=== PATIENT | male | born 1955 | race Caucasian/White ===

== ENCOUNTER 2020-08-20 16:23 | Inpatient (IN) | payer MEDICARE, BC, SELFPAY ==
[2020-08-20] VITALS (7 sets, daily range): BP systolic 118–150; BP diastolic 68–89; PULSE 89–102; RESP 14–22; TEMP 36.3–36.8; O2SAT 92–99; BMI 24.5
--- NOTE | ~2020-08-20 | XR_ITS ---
EXAMINATION: XR foot LT min 3V DATE: 08/20/2020 18:08 INDICATION: Left foot pain TECHNIQUE: Four views of the left foot were obtained. COMPARISON: None. FINDINGS: There are changes of left foot amputation beyond the tarsals. There is deformity of the cun eiforms and navicular, consistent with chronic diabetic foot change. There is a soft tissue ulceratio n at the plantar aspect of the lateral foot which appears to penetrate to the cuboid. There are is os teopenia and soft tissue gas involving the lateral aspect of the cuboid. Diffuse soft tissue swelling is seen in the foot and distal lower extremity. There is gas in the plantar aspect of the foot adjac ent to the calcaneus. A cleft is seen in the soft tissues of the distal foot near the medial and midd le cuneiform bones without definite associated osteomyelitis. IMPRESSION: 1. Plantar ulceration of the foot penetrating to the cuboid with osteomyelitis of the cuboid. 2. Soft tissue gas in the plantar aspect of the foot. 3. Surgical changes of prior distal foot amputation. Reviewed, dictated and finalized at location A.
--- NOTE | ~2020-08-20 | US_ITS ---
EXAMINATION: US venous doppler [facility] EXAM DATE: 08/21/2020 09:41 INDICATION: Edema, history of DVT. TECHNIQUE: Multiple grayscale, color flow and Doppler images of the left lower extremity deep venous system obtained and reviewed. There is no prior study for comparison. FINDINGS: LEFT SIDE Common femoral: -------- Normal. Profunda femoral: ------- Normal. Femoral: Normal. Popliteal: Some linear echogenic thrombus or scarring. Posterior tibial: --------- Normal. Peroneal: Normal. Gastrocnemius: Occluded, age indeterminate. Soleus: Not visualized. Greater saphenous: ----- Normal. Lesser saphenous: ------ Not visualized. IMPRESSION: Nonocclusive popliteal, occlusive gastrocnemius thrombus or scarring. Popliteal vein mor e consistent with subacute or chronic finding, gastrocnemius is age indeterminate. I discussed positive results with 3rd medical floor nurse caring for patient at 08/21/2020 09:58 CDT. Reviewed, dictated and finalized at location A. IMPRESSION: Nonocclusive popliteal, occlusive gastrocnemius thrombus or scarrin g. Popliteal vein more consistent with subacute or chronic finding, gastrocnem ius is age indeterminate. I discussed positive results with [facility] medical floor nurse caring for patient at 08/21/2020 09:58 CDT.
--- NOTE | ~2020-08-20 | XR_ITS ---
EXAMINATION: XR chest 1V portable EXAM DATE: 08/25/2020 12:30 INDICATION: Shortness of breath. TECHNIQUE: Portable AP frontal chest x-ray was obtained. There is no prior study for comparison. FINDINGS: There is mild cardiomegaly. There is small left pleural effusion. No focal airspace disease or pneumothorax. There are no osseous abnormalities identified. IMPRESSION: Mild cardiomegaly. Small left pleural effusion. Reviewed, dictated and finalized at location A.
[2020-08-20 17:42] LABS: Glucose Point of Care > 500 (65-105)
[2020-08-20] MEDS: LACTATED RINGERS 1,000 ML 999 ML IV CONT ×2 (17:51→19:54)
[2020-08-20 18:05] LABS: Basophils Absolute Auto 0.1 K/mm3 (0.0-0.1); Basophils Percent Auto 0.3 % (0.2-1.2); Hematocrit 29.7 % (42.0-52.0); Hemoglobin 10.1 g/dL (14.0-18.0); Immature Granulocyte Absolute 0.23 K/mm3 (0.00-0.031); Immature Granulocyte Percent A 1.1 % (0-0.5); Lymphocytes Percent Auto 4.2 % (18.3-44.2); Mean Corpuscular Hemoglobin 30.5 pg (26-34); Mean Corpuscular Volume 89.7 fl (80-100); Mean Platelet Volume 9.6 fl (7.4-10.4); Monocytes Absolute Auto 0.9 K/mm3 (0.1-0.6); Monocytes Percent Auto 4.2 % (2.6-8.5); Neutrophils Absolute Auto 19.5 K/mm3 (1.3-6.7); Neutrophils Percent Auto 90.2 % (45.5-73.1); Platelet Count Result 367 k/mm3 (150-375); Red Blood Count 3.31 M/mm3 (4.6-6.20); Red Cell Distribution Width 12.8 % (11.5-14.5); White Blood Count 21.6 K/mm3 (4.5-10.0)
--- NOTE | 2020-08-20 18:07 | ED.LOWEXIN ---
HPI - Extremity Injury (Lower) General Chief Complaint: Extremity Injury, Lower Stated Complaint: lesion on left foot Time Seen by Provider: 08/20/20 16:51 Source: patient Mode of arrival: ambulatory Limitations: no limitations History of Present Illness HPI Narrative: 65-year-old male History of diabetes Presents complaining that he thinks I may lose my left foot Patient notes that he had a previous midfoot amputation done on the left side in [place] around 2014 He moved to this area roughly a year after that He has not seen a doctor for taking any medication for his diabetes since that time He notes that for about a year he has had a sore on the left foot that he was treating by applying the likes of alcohol hydrogen peroxide and witch isa For the last 3 to 5 days the foot is been precipitously worse, with increased pain, sloughing of skin, and increased drainage He does not have a fever Related Data Allergies Allergy/AdvReac Type Severity Reaction Status Date / Time metoclopramide [From Reglan] Allergy Unknown Verified 08/20/20 18:17 Review of Systems Review of Systems: All systems reviewed & are unremarkable except as noted in HPI and below Constitutional: Constitutional: Reports no additional constitutional complaints, Denies chills, Denies fever(s) and Denies headache(s) Eyes: Eyes: Reports no additional eye complaints and Denies change in vision ENT: Denies headache(s) and Denies sore throat Cardiovascular: Cardiovascular: Denies chest pain and Denies dyspnea Respiratory: Respiratory: Reports chest congestion, Reports cough and Denies dyspnea Gastrointestinal: Gastrointestinal: Denies diarrhea, Denies nausea and Denies vomiting Genitourinary: Genitourinary: Denies dysuria Musculoskeletal: Musculoskeletal: Denies deformity, Reports arthralgias, Reports joint swelling and Denies numbness Integumentary/Breasts: Skin/Breast: Reports rash, Reports skin ulcer and Denies wounds Neurologic: Denies headache(s), Denies focal weakness and Denies numbness Psychiatric: Psychiatric: Reports no additional psychiatric complaints Endocrine: Endocrine: Reports no additional endocrine complaints Hematologic/Lymphatic: Hematologic/Lymphatic: Reports no additional hematologic/lymphatic complaints Allergic/Immunologic: Allergic/Immunologic: Reports no additional allergic/immunologic complaints Exam Const: General: cooperative, no acute distress and alert Orientation/consciousness: patient oriented x3 (alert) HENMT: Head: normal to inspection, normocephalic and atraumatic Ears: external ears normal General nose exam: no epistaxis Eyes: Conjunctivae: conjunctivae normal EOM: EOMs intact bilaterally Neck: Neck: normal visual inspection, supple and no JVD Resp: Effort & Inspection: normal respiratory effort and not labored Auscultation: other (BS =) Skin: General skin exam: normal color and no rashes or lesions noted Neuro: General: patient oriented x3 (alert) and moves all extremities Speech: normal speech Extrem: General: normal to inspection and edema Other: 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 There are large ulcerations to the heel, to the plantar surface, and a smaller 1 under the remaining with midfoot There is a surprisingly small amount of mild erythema and swelling surrounding all this There are venous stasis changes Psych: Affect: normal affect Course Course Emergency Course: BS responded to fluids and initial insulin dose; no acidosis and no elevated AG d/w hospitalists for admission and w/ dr grebing for surgical consult Vital Signs Vital signs: Vital Signs Temperature 36.3 C L 08/20/20 16:32 Pulse Rate 91 08/20/20 16:32 Respiratory Rate 14 08/20/20 16:32 Blood Pressure 127/68 08/20/20 16:32 Pulse Oximetry 99 08/20/20 16:32 Temperature 36.5 C 08/20/20 19:42 Pulse Rate 91 08/20/20 19:42 Respiratory Rate 20 08/20/20 19:42 Blood Pressu
[2020-08-20 18:08] LABS: Fractional Inspired Oxygen 21 %; HCO3 VBG 22.2 mEq/l (24.0-30.0); PO2 VBG 107.8 mmHg (35.0-45.0)
[2020-08-20] MEDS: INSULIN HUMAN REGULAR (*BKC) 100 UNITS/ML 8 UNITS IV PUSH (18:09)
[2020-08-20 18:10] LABS: Device ROOM AIR; PCO2 VBG 22.4 mmHg (42.0-48.0); pH VBG 7.613 (7.300-7.400)
[2020-08-20 18:21] LABS: Beta-Hydroxybutyrate/Acetoacetate 1.23 mmol/L (0.02-0.27)
[2020-08-20 18:29] LABS: Hemoglobin A1C 11.4 % (<5.7)
--- NOTE | 2020-08-20 19:00 | PC.NURSE ---
Assumed care of patient. report from Mayur LEWIS
[2020-08-20 19:18] LABS: Glucose Point of Care 366 (65-105)
[2020-08-20 19:36] LABS: Alanine Aminotransferase 28 U/L (4-50); Albumin Level 2.7 g/dL (3.5-5.1); Alkaline Phosphatase 200 U/L (38-126); Anion Gap 5 mmol/L (8-16); Aspartate Amino Transferase 34 U/L (17-59); Bilirubin,Total 0.3 mg/dL (0.2-1.3); Blood Urea Nitrogen 35 mg/dL (9-20); Calcium 8.1 mg/dL (8.4-10.2); Carbon Dioxide 30 mmol/L (22-30); Chloride 93 mmol/L (98-107); Estimated CRCL calculation 59 ml/min; Estimated Glomerular Filt Rate > 60; Glucose 418 mg/dL (75-110); Potassium 3.8 mmol/L (3.4-5.0); Sodium 128 mmol/L (137-145)
--- NOTE | 2020-08-20 19:50 | PM.IMHP ---
H&P: HPI History of Present Illness Date/Time: 08/20/20 19:50 Chief Complaint: Left foot wound. Narrative: This is 65-year-old male with type 2 diabetes mellitus which has been untreated for the last 5 to 6 years who presented to the emergency department early today via private vehicle from home for evaluation of a left foot wound. He has a history of osteomyelitis and underwent left mid forefoot amputation in [place] sometime in 2014. It sounds like he has intermittent issues with a chronic diabetic ulcer on the lateral, plantar aspect of that left midfoot but he admits that he does not exam it often ?because I have a hard time turning my foot around to look at it.? He has thus been oblivious to the fact that the area has gotten deeper and was unaware of other changes throughout the remainder of that foot until the past 5 days or so when the foot became swollen and painful with yellow/bloody discharge. Additionally he has not been feeling well for the last 3 days with generalized malaise, decreased appetite, and mild nausea. He came in today under the assumption that he is probably going to lose his foot. He denies fever, chills, and sweats. No nausea or vomiting. No chest pain or shortness of breath. No no history of multidrug resistant organisms. Review of Systems Review of Systems: Narrative: Twelve systems were reviewed with pertinent positives and negatives as per HPI. He has lost 2025 pounds unintentionally within the last month. Endorses polydipsia and polyuria. No blurry vision. 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 Denies significant upper extremity paresthesias. He suffers quite a bit from GERD and indigestion, and in fact it causes him difficulties at night and he has a hard time sleeping due to heartburn. He is not taking anything for that at home though. Reports history of blood clots in his left leg many years ago which was attributed to multiple overseas flights for his work. Except as documented, all other systems were reviewed and are negative. [facility] Past Medical History Medical History (Updated 08/20/20 @ 22:19 by Elizabeth Grove PA-C) Diabetic peripheral neuropathy Gastroesophageal reflux disease History of osteomyelitis Type 2 diabetes mellitus Hemoglobin A1c was 11.4% on 08/20/2020. Surgical History Surgical History (Updated 08/20/20 @ 22:12 by Elizabeth Grove PA-C) Amputation of left midfoot (~2014) As treatment of osteomyelitis, done in [place]. Status post left foot surgery Patient reports multiple debridements for osteomyelitis of the left foot prior to mid foot amputation. Family History Family History (Updated 08/20/20 @ 22:12 by Elizabeth Grove PA-C) Father Renal cell carcinoma Social History Social History (Updated 08/20/20 @ 22:14 by Elizabeth Grove PA-C) Social History: The patient lives in his own home in [place]. He has a daughter who lives in [place]. 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 Lifelong nonsmoker. He has not consumed alcohol for 3 years. No drug use. He designates his daughter, Cassandra Montoya, as his surrogate decision maker and he wishes to be a full code. Meds Home Medications and Allergies Allergies Allergy/AdvReac Type Severity Reaction Status Date / Time metoclopramide [From Reglan] Allergy Unknown Verified 08/20/20 18:17 Vital Signs Vital Signs - 24 hr 08/20/20 16:32 08/20/20 17:18 08/20/20 19:42 Temperature 97.3 F L 97.7 F Pulse Rate 91 91 91 Respiratory Rate 14 20 20 Blood Pressure 127/68 140/86 118/76 Pulse Oximetry 99 98 92 Exam Narrative: Exam Narrative: General: Chronically ill-appearing male sitting up in bed in no distress. Weight: 72.5 kilograms. BMI: 23.6. HEENT: Normocephalic, atraumatic. PERRL, EOMI. Sclerae anicteric. Tacky mucous membranes. Neck: Supple. No JVD. No carotid bruit
[2020-08-20] MEDS: INSULIN HUMAN REGULAR (*BKC) 100 UNITS/ML IV PUSH (21:15)
[2020-08-20] MEDS: SODIUM CHLORIDE 0.9% IV 1,000 ML 999 ML IV CONT (21:16)
[2020-08-20] MEDS: POTASSIUM CHLORIDE 20 MEQ PACKET (FOR LIQUID) 40 MEQ PO (21:17)
[2020-08-20 21:28] LABS: Glucose Point of Care 367 (65-105)
--- NOTE | 2020-08-20 22:25 | PC.NURSE ---
Updated Dr on pt stating he puked up some of his K+ and that he wants something for his hiccups/acid reflux.
[2020-08-20] MEDS: PANTOPRAZOLE SODIUM IV 40 MG VIAL IV PUSH (22:56)
[2020-08-20] MEDS: ONDANSETRON INJ 4 MG/2 ML VIAL IV PUSH (23:20)
--- NOTE | 2020-08-20 23:36 | ADMGEN ---
This patient, Wali Chavez, was admitted to [facility] Surg Room 316-01. Patient/family oriented to hospital policies and general routines including ID bracelet, bed and alarms, visiting hours, pain management, procedures, bathroom and other care routines, personal items, smoking policy, room service/diet, and visiting hours. Information on how to activate the Rapid Response Team has been discussed. Patient/Family are encouraged to report perceived risks to care and to ask questions if they do not understand what they are told or what they should do.
[2020-08-20] MEDS: INSULIN GLARGINE (*BKC) 100 UNITS/ML 15 UNITS SUB-Q (23:43)
[2020-08-20] MEDS: SODIUM CHLORIDE 0.9% IV 1,000 ML 100 ML IV CONT (23:43)
[2020-08-21 00:08] LABS: Glucose Point of Care 354 (65-105)
[2020-08-21 00:47] VITALS: PULSE 89; RESP 16; O2SAT 99
[2020-08-21 02:32] LABS: Glucose Point of Care 378 (65-105)
[2020-08-21] MEDS: INSULIN ASPART (*BKC) 100 UNITS/ML 7 UNITS SUB-Q (02:48)
[2020-08-21 05:58] LABS: Glucose Point of Care 332 (65-105)
[2020-08-21 06:00] VITALS: BP 125/72; PULSE 88; RESP 20; TEMP 36.6; O2SAT 97
[2020-08-21 06:04] LABS: Glucose Point of Care 331 (65-105)
[2020-08-21 06:06] LABS: Basophils Absolute Auto 0.1 K/mm3 (0.0-0.1); Basophils Percent Auto 0.2 % (0.2-1.2); Eosinophils Absolute Auto 0.1 K/mm3 (0-0.3); Eosinophils Percent Auto 0.2 % (0-4.4); Hematocrit 24.5 % (42.0-52.0); Hemoglobin 8.3 g/dL (14.0-18.0); Immature Granulocyte Absolute 0.15 K/mm3 (0.00-0.031); Immature Granulocyte Percent A 0.7 % (0-0.5); Lymphocytes Absolute Auto 1.01 K/mm3 (0.9-3.2); Lymphocytes Percent Auto 4.8 % (18.3-44.2); Mean Corpuscular HGB Conc 33.9 g/dl (32-36); Mean Corpuscular Hemoglobin 29.7 pg (26-34); Mean Corpuscular Volume 87.8 fl (80-100); Mean Platelet Volume 9.1 fl (7.4-10.4); Monocytes Absolute Auto 1.1 K/mm3 (0.1-0.6); Monocytes Percent Auto 5.3 % (2.6-8.5); Neutrophils Absolute Auto 18.5 K/mm3 (1.3-6.7); Neutrophils Percent Auto 88.8 % (45.5-73.1); Platelet Count Result 317 k/mm3 (150-375); Red Blood Count 2.79 M/mm3 (4.6-6.20); Red Cell Distribution Width 12.3 % (11.5-14.5); White Blood Count 20.8 K/mm3 (4.5-10.0)
[2020-08-21 06:21] LABS: INR 1.3; Prothrombin Time 16.7 Seconds (11.1-14.7)
[2020-08-21 06:26] LABS: Alanine Aminotransferase 20 U/L (4-50); Albumin Level 2.2 g/dL (3.5-5.1); Alkaline Phosphatase 144 U/L (38-126); Anion Gap 2 mmol/L (8-16); Aspartate Amino Transferase 24 U/L (17-59); Bilirubin,Total 0.3 mg/dL (0.2-1.3); Blood Urea Nitrogen 31 mg/dL (9-20); Calcium 7.3 mg/dL (8.4-10.2); Carbon Dioxide 28 mmol/L (22-30); Chloride 97 mmol/L (98-107); Cholesterol 78 mg/dL (0-200); Estimated CRCL calculation 73 ml/min; Estimated Glomerular Filt Rate > 60; Glucose 320 mg/dL (75-110); HDL Direct 12 mg/dL; Magnesium 1.7 mg/dL (1.6-2.3); Potassium 4.2 mmol/L (3.4-5.0); Sodium 127 mmol/L (137-145); Triglycerides 121 mg/dL (<150)
[2020-08-21 06:32] LABS: LDL Cholesterol Direct 40 mg/dL
[2020-08-21 06:43] LABS: CRP 18.2 mg/dL (<1.0)
[2020-08-21 06:50] LABS: Prealbumin < 3.0 mg/dL (17.6-36.0)
[2020-08-21 08:00] LABS: Glucose Point of Care 279 (65-105)
[2020-08-21] MEDS: ASPIRIN 81 MG CHEWABLE TABLET PO (08:54)
[2020-08-21] MEDS: PANTOPRAZOLE 40 MG TABLET PO (08:54)
[2020-08-21] MEDS: INSULIN ASPART (*BKC) 100 UNITS/ML SUB-Q ×3 (08:57→16:48)
[2020-08-21 08:58] VITALS: O2SAT 96
[2020-08-21] MEDS: SOD HYPOCHLORITE 1/4 STRENGTH 473 ML 1 APPLIC TOPICAL (11:09)
[2020-08-21 11:44] VITALS: BMI 24.5
[2020-08-21] MEDS: SODIUM CHLORIDE 0.9% IV 1,000 ML 100 ML IV CONT (11:50)
[2020-08-21 12:02] LABS: Glucose Point of Care 313 (65-105)
--- NOTE | 2020-08-21 12:31 | PM.CNOR ---
Assessment and Plan Assessment and plan (1) Diabetic foot ulcer with osteomyelitis: Code(s): E11.621 - Type 2 diabetes mellitus with foot ulcer; E11.69 - Type 2 diabetes mellitus with other specified complication; L97.509 - Non-pressure chronic ulcer of other part of unspecified foot with unspecified severity; M86.9 - Osteomyelitis, unspecified Status: Acute Assessment and Plan: 65-year-old gentleman with uncontrolled diabetes and medically the self neglected with previous amputation left partial foot, ulceration for several months and now worsening infection over the past several days. Purulence drainage from the foot ulcers which are extensive over the midfoot plantar aspect and the heel. Hyperglycemia. Patient started on intravenous antibiotics. Start with Dakin's solution dressing changes. Will need surgical treatment with debridement and possible amputation. Discussed in detail with patient. Discussed risk of loss of limb and inability to salvage the foot. He verbalizes understanding. Proceed with surgery once medically stable. (2) Uncontrolled type 2 diabetes mellitus: Qualifiers: Glycemic state: with hyperglycemia Qualified Code(s): E11.65 - Type 2 diabetes mellitus with hyperglycemia Code(s): E11.65 - Type 2 diabetes mellitus with hyperglycemia Status: Acute (3) Neuropathy due to secondary diabetes: Code(s): E13.40 - Other specified diabetes mellitus with diabetic neuropathy, unspecified Status: Acute History of Present Illness HPI Consult date: 08/21/20 Requesting physician: Shamar Landry MD Chief complaint: diabetic foot ulcer w/osteomyelitis, Narrative: 65-year-old gentleman who has neglected his own medical care for the past 5 years presented to emergency room with worsening infection the left foot. He is status post midfoot amputation for diabetic infection. He has had ulceration callus formation for several months which he states got worse the past Five days. patient was previously ambulatory without assistive devices. Current symptoms: Reports drainage, ulceration, odor and numbness Location: foot Duration: 1-3 months Pain scale (0-10): 1 Review of Systems Review of Systems: All systems reviewed & are unremarkable except as noted in HPI and below Constitutional: Constitutional: Reports no additional constitutional complaints, Denies chills, Denies fever(s) and Denies headache(s) Eyes: Eyes: Reports no additional eye complaints and Denies change in vision ENT: Denies headache(s) and Denies sore throat Cardiovascular: Cardiovascular: Denies chest pain and Denies dyspnea Respiratory: Respiratory: Reports chest congestion, Reports cough and Denies dyspnea Gastrointestinal: Gastrointestinal: Denies diarrhea, Denies nausea and Denies vomiting Genitourinary: Genitourinary: Denies dysuria Musculoskeletal: Musculoskeletal: Reports deformity ( Left foot) and Reports numbness Integumentary/Breasts: Skin/Breast: Reports rash, Reports skin ulcer and Denies wounds Neurologic: Denies headache(s), Denies focal weakness and Denies numbness Psychiatric: Psychiatric: Reports no additional psychiatric complaints Endocrine: Endocrine: Reports no additional endocrine complaints Hematologic/Lymphatic: Hematologic/Lymphatic: Reports no additional hematologic/lymphatic complaints Allergic/Immunologic: Allergic/Immunologic: Reports no additional allergic/immunologic complaints PMFSH Past Medical History Medical History Diabetic peripheral neuropathy Gastroesophageal reflux disease History of osteomyelitis Type 2 diabetes mellitus Hemoglobin A1c was 11.4% on 08/20/2020. Surgical History Surgical History Amputation of left midfoot (~2014) As treatment of osteomyelitis, done in [place]. Status post left foot surgery Patient reports multiple debrideme
--- NOTE | 2020-08-21 12:36 | PM.IMPN ---
Progress Note: A&P Assessment and Plan (1) Diabetic foot ulcer with osteomyelitis: Code(s): E11.621 - Type 2 diabetes mellitus with foot ulcer; E11.69 - Type 2 diabetes mellitus with other specified complication; L97.509 - Non-pressure chronic ulcer of other part of unspecified foot with unspecified severity; M86.9 - Osteomyelitis, unspecified Status: Acute Assessment and Plan: He has been started on imipenem and vancomycin Dr. Ponce (orthopedics) has been consulted (2) Uncontrolled type 2 diabetes mellitus: Code(s): E11.65 - Type 2 diabetes mellitus with hyperglycemia Status: Acute Assessment and Plan: Patient stopped taking his insulin about 5 years ago for unclear reasons. Hemoglobin A1c is 11.4% today. Pt needs PCP, pt needs Dm educator on discharge, compliance to DM medications emphasized (3) Dehydration: Code(s): E86.0 - Dehydration Status: Acute Assessment and Plan: Patient is dehydrated, secondary to uncontrolled DM. (4) Gastroesophageal reflux disease: Code(s): K21.9 - Gastro-esophageal reflux disease without esophagitis Status: Acute Assessment and Plan: Start PPI. Subjective Date/time seen: 08/21/20 12:36 Interval history: 65-year-old male with type 2 diabetes mellitus which has been untreated for the last 5 to 6 years who presented to the emergency department early today via private vehicle from home for evaluation of a left foot wound. Pt has pulses on dopper, pt to see DR Arnold orthopedics regarding debridement v amputation Review of Systems Review of Systems: All systems reviewed & are unremarkable except as noted in HPI and below Exam Narrative: Exam Narrative: General: Chronically ill-appearing male HEENT: Normocephalic, atraumatic. Respiratory: Lungs are clear to auscultation bilaterally. Cardiovascular: Regular rate and rhythm with S1-S2. Gastrointestinal: Abdomen is soft, nontender, and nondistended with positive bowel sounds. Skin: left foot in dressing not completely examined pulses intact Extremities: No cyanosis or clubbing. . Objective Data Vital Signs Vital Signs: Vital Signs - 24 hr 08/20/20 16:32 08/20/20 17:18 08/20/20 19:42 Temperature 36.3 C L 36.5 C Pulse Rate 91 91 91 Respiratory Rate 14 20 20 Blood Pressure 127/68 140/86 118/76 Pulse Oximetry 99 98 92 08/20/20 20:57 08/20/20 22:06 08/20/20 22:41 Temperature Pulse Rate 95 94 102 H Respiratory Rate 20 20 22 H Blood Pressure 144/83 H 122/76 150/89 H Pulse Oximetry 95 94 98 08/20/20 23:25 08/21/20 00:47 08/21/20 06:00 Temperature 36.8 C 36.6 C Pulse Rate 89 89 88 Respiratory Rate 16 16 20 Blood Pressure 143/80 H 125/72 Pulse Oximetry 99 99 97 08/21/20 08:58 Temperature Pulse Rate Respiratory Rate Blood Pressure Pulse Oximetry 96 Intake/Output Intake/Output: Intake & Output 08/18/20 08/19/20 08/20/20 08/21/20 23:59 23:59 23:59 23:59 Intake Total 3100 1770 Output Total 700 Balance 3100 1070 Meds/Results Medications: Active Medications Generic Name Dose Route Start Last Admin Trade Name Freq PRN Reason Stop Dose Admin Acetaminophen 650 mg 08/20/20 21:24 Acetaminophen 325 Mg Tablet PO Q4H PRN Mild Pain (1-3) or Fever Aspirin 81 mg 08/21/20 08:00 08/21/20 08:54 Aspirin 81 Mg Chewable Tablet PO 81 mg DAILY@0800 MERARY Administration Dextrose 12.5 gm 08/20/20 22:22 Dextrose 50% 25 Gm/50 Ml Syringe IV PUSH PRN PRN Hypoglycemia Protocol Glucagon 1 mg 08/20/20 22:22 Glucagon For Inj 1 Mg Vial IM PRN PRN Hypoglycemia Protocol Glucose 15 gm 08/20/20 22:22 Glucose Oral Gel 15 Gm Of Glucse In 37.5 Gm Tube PO PRN PRN Hypoglycemia Protocol Dextrose 1,000 mls @ 100 mls/hr 08/20/20 22:22 Dextrose 5% 1,000 Ml IVPB PRN PRN Hypoglycemia Protocol Sodium Chloride
[2020-08-21 14:00] VITALS: BP 138/78; PULSE 100; RESP 20; TEMP 36.5; O2SAT 98
--- NOTE | 2020-08-21 15:59 | PM.PNORT ---
Progress Note: A&P Assessment and Plan (1) Diabetic foot ulcer with osteomyelitis: Code(s): E11.621 - Type 2 diabetes mellitus with foot ulcer; E11.69 - Type 2 diabetes mellitus with other specified complication; L97.509 - Non-pressure chronic ulcer of other part of unspecified foot with unspecified severity; M86.9 - Osteomyelitis, unspecified Status: Acute Assessment and Plan: Patient started on Dakin's solution dressing changes. IV antibiotics. Patient appears comfortable. Radiographs difficult to assess for osteomyelitis however clinically would expect osteomyelitis. Discussed with patient once again. Verbalizes risk of amputation. Discussed need to start with debridement and proceed as indicated and based on response. Discussed nonoperative and operative treatment options with the patient. Risks and benefits of each as well as alternatives were reviewed. All of the patient's questions were answered. The risks of surgery reviewed including but not limited to: Neurovascular damage, wound complication, infection, blood clot, pulmonary embolus, stroke, myocardial infarction, and anesthetic risks up to and including . Continued pain and possible dysfunction were explained. Specific risks of the procedure including later recurrence of deformity. No guarantees were offered. If complications occur, the patient understands the need for further treatment, possible further surgery. Patient verbalizes understanding and wishes to proceed. PLAN: Debridement left diabetic foot infection Subjective Subjective Date/Time Seen: 08/21/20 15:59 Patient resting comfortably. No new complaints. Exam Const: General: healthy appearing; No in distress or confusion Orientation/consciousness: patient oriented x3 and No confusion HENMT: Head: normal to inspection, normocephalic and atraumatic Eyes: Conjunctivae: conjunctivae normal Sclera: sclerae normal Resp: Effort & Inspection: normal respiratory effort and no audible wheezes Neuro: General: patient oriented x3 and No confusion Extrem: Right lower extremity: foot Details: normal capillary refill, normal to inspection, vascular exam Details: dorsalis pedis pulse present and normal capillary refill and motor-sensory exam Details: two point discrimination abnormal Location: in all toes and light-touch abnormal Location: in all toes; no tenderness, no unusual warmth and no ecchymosis Left lower extremity: ankle Details: warmth ( erythema extending to the ankle level) and foot Details: abnormal to inspection Details: other ( midfoot amputation) and other ( ulceration plantar midfoot and surrounding the heel with exposed soft tissue and muscle. Purulent drainage.) Psych: Affect: normal affect Objective Data Vital Signs Vital Signs: Vital Signs - 24 hr 08/20/20 16:32 08/20/20 17:18 08/20/20 19:42 Temperature 97.3 F L 97.7 F Pulse Rate 91 91 91 Respiratory Rate 14 20 20 Blood Pressure 127/68 140/86 118/76 Pulse Oximetry 99 98 92 08/20/20 20:57 08/20/20 22:06 08/20/20 22:41 Temperature Pulse Rate 95 94 102 H Respiratory Rate 20 20 22 H Blood Pressure 144/83 H 122/76 150/89 H Pulse Oximetry 95 94 98 08/20/20 23:25 08/21/20 00:47 08/21/20 06:00 Temperature 98.2 F 97.9 F Pulse Rate 89 89 88 Respiratory Rate 16 16 20 Blood Pressure 143/80 H 125/72 Pulse Oximetry 99 99 97 08/21/20 08:58 08/21/20 14:00 Temperature 97.7 F Pulse Rate 100 Respiratory Rate 20 Blood Pressure 138/78 Pulse Oximetry 96 98 Intake/Output Intake/Output: Intake & Output 08/18/20 08/19/20 08/20/20 08/21/20 23:59 23:59 23:59 23:59 Intake Total 3100 2020 Output Total 700 Balance 3100 1320 Meds/Results Medications: Active Medications Generic Name Dose Route Start Last Admin Trade Name Freq PRN Reason Stop Dose Admin Acetaminophen 650 mg 08/20/20 21:24 Acetaminophen 325 Mg Tablet PO Q4H PRN Mild Pain (1-3) or Fever Aspirin 8
--- NOTE | 2020-08-21 16:42 | ECG_ITS ---
Measurements Intervals [place] Rate: 92 P: 33 NH: 124 QRS: -19 QRSD: 92 T: 43 QT: 366 QTc: 454 Interpretive Statements SINUS RHYTHM POSSIBLE LEFT ATRIAL ENLARGEMENT CANNOT RULE OUT SEPTAL INFARCT, AGE INDETERMINATE CONSIDER INFERIOR INFARCT, AGE INDETERMINATE BASELINE ARTIFACT- V1, V5-V6 ABNORMAL ECG Electronically Signed On 08-21-2020 19:00:54 CDT by Yeyo Narvaez D.O.
--- NOTE | 2020-08-21 16:43 | WPDANESEPP ---
Anes - Eval Pre Procedure Procedure: Operation Date: 08/22/20 13:00 Proposed Procedures p Debridement of Left Diabetic Foot Infection(Left) - Vini Ponce MD Date/Time: 08/21/20 16:43 Pre Op Diagnosis: diabetic foot ulcer w/osteomyelitis, Patient Data Age: 65 Gender: M Height: 5 ft 10 in Weight: 77.4 kg Last Vital Signs Temp 97.7 F 08/21/20 14:00 Pulse 100 08/21/20 14:00 Resp 20 08/21/20 14:00 BP 138/78 08/21/20 14:00 Pulse Ox 98 08/21/20 14:00 Allergies Allergy/AdvReac Type Severity Reaction Status Date / Time metoclopramide [From Reglan] Allergy Unknown Verified 08/20/20 18:17 Home Medications Medication Instructions Recorded Confirmed Type No Home Medications 08/20/20 08/20/20 History Laboratory Tests 08/20/20 08/20/20 08/20/20 17:40 17:57 17:57 WBC 21.6 K/mm3 H K/mm3 (4.5-10.0) RBC 3.31 M/mm3 L M/mm3 (4.6-6.20) Hgb 10.1 g/dL L g/dL (14.0-18.0) Hct 29.7 % L % (42.0-52.0) MCV 89.7 fl fl (80-100) MCH 30.5 pg pg (26-34) MCHC 34.0 g/dl g/dl (32-36) RDW 12.8 % % (11.5-14.5) Plt Count 367 k/mm3 k/mm3 (150-375) MPV 9.6 fl fl (7.4-10.4) Immature Gran % (Auto) 1.1 % H % (0-0.5) Neut % (Auto) 90.2 % H % (45.5-73.1) Lymph % (Auto) 4.2 % L % (18.3-44.2) Garvin % (Auto) 4.2 % % (2.6-8.5) Eos % (Auto) 0.0 % % (0-4.4) Baso % (Auto) 0.3 % % (0.2-1.2) Lymph # (Auto) 0.90 K/mm3 K/mm3 (0.9-3.2) Garvin # (Auto) 0.9 K/mm3 H K/mm3 (0.1-0.6) Eos # (Auto) 0.0 K/mm3 K/mm3 (0-0.3) Baso # (Auto) 0.1 K/mm3 K/mm3 (0.0-0.1) Abs Immat Gran (auto) 0.23 K/mm3 H K/mm3 (0.00-0.031) Absolute Neuts (auto) 19.5 K/mm3 H K/mm3 (1.3-6.7) Absolute Nucleated RBC 0.0 K/mm3 K/mm3 (0.0-0.012) Nucleated RBC % 0.0 % % (0.0-0.2) PT INR APTT VBG pH VBG pCO2 VBG pO2 VBG HCO3 O2 Delivery Device O2 Liters/Min FiO2 Sodium Potassium Chloride Carbon Dioxide Anion Gap BUN Creatinine Estim Creat Clear Calc Estimated GFR Glucose POC Capillary Glucose > 500 mg/dl H* mg/dl (65-105) Hemoglobin A1c 11.4 % H % (<5.7) Calcium Magnesium Total Bilirubin Direct Bilirubin AST ALT Alkaline Phosphatase C-Reactive Protein Total Protein Albumin Prealbumin Triglycerides Cholesterol LDL Cholesterol Direct HDL Direct Beta-Hydroxybutyrate/Acetoacetate TSH (Reflex) 08/20/20 08/20/20 08/20/20 17:57 17:59 18:52 WBC RBC Hgb Hct MCV MCH MCHC RDW Plt Count MPV Immature Gran % (Auto) Neut % (Auto) Lymph % (Auto) Garvin % (Auto) Eos % (Auto) Baso % (Auto) Lymph # (Auto) Garvin # (Auto) Eos # (Auto) Baso # (Auto) Abs Immat Gran (auto) Absolute Neuts (auto) Absolute Nucleated RBC Nucleated RBC % PT INR APTT VBG pH 7.613 H* (7.300-7.400) VBG pCO2 22.4 mmHg L* mmHg (42.0-48.0) VBG pO2 107.8 mmHg H mmHg (35.0-45.0) VBG HCO3 22.2 mEq/l L mEq/l (24.0-30.0) O2 Delivery Device Room air O2 Liters/Min Not Reporta
[2020-08-21 16:47] LABS: Glucose Point of Care 250 (65-105)
[2020-08-21 20:00] VITALS: RESP 20; O2SAT 98
[2020-08-21] MEDS: INSULIN GLARGINE (*BKC) 100 UNITS/ML 15 UNITS SUB-Q (20:44)
[2020-08-21 22:00] VITALS: BP 123/75; PULSE 86; RESP 20; TEMP 36.7; O2SAT 97
[2020-08-21 22:51] LABS: Glucose Point of Care 196 (65-105)
[2020-08-21 22:51] LABS: Glucose Point of Care 179 (65-105)
[2020-08-22] VITALS (13 sets, daily range): BP systolic 107–162; BP diastolic 72–98; PULSE 80–120; RESP 16–23; TEMP 35.9–37.6; O2SAT 91–100
[2020-08-22] MEDS: SODIUM CHLORIDE 0.9% IV 1,000 ML 100 ML IV CONT ×2 (01:09→16:36)
[2020-08-22] MEDS: PANTOPRAZOLE 40 MG TABLET PO (08:23)
[2020-08-22] MEDS: SOD HYPOCHLORITE 1/4 STRENGTH 473 ML 1 APPLIC TOPICAL (08:25)
[2020-08-22 08:31] LABS: Glucose Point of Care 175 (65-105)
[2020-08-22] MEDS: ASPIRIN 81 MG CHEWABLE TABLET PO (08:31)
[2020-08-22] MEDS: ENOXAPARIN 40 MG/0.4 ML SYRINGE SUB-Q (08:31)
--- NOTE | 2020-08-22 08:34 | PM.PNORT ---
Progress Note: A&P Assessment and Plan (1) Diabetic foot ulcer with osteomyelitis: Code(s): E11.621 - Type 2 diabetes mellitus with foot ulcer; E11.69 - Type 2 diabetes mellitus with other specified complication; L97.509 - Non-pressure chronic ulcer of other part of unspecified foot with unspecified severity; M86.9 - Osteomyelitis, unspecified Status: Acute Assessment and Plan: discussed condition with patient. Concern for osteomyelitis and extension of infection possibly to the ankle which would necessitate amputation below knee. Also with diminished pulses possible peripheral arterial disease. Patient would like attempted salvage if possible. Currently on intravenous antibiotics and Dakin's solution dressing changes. Discussed surgical plan for debridement of the left foot and assessment for chance of salvage versus need for amputation. Patient verbalizes understanding and agreement with the plan. Discussed nonoperative and operative treatment options with the patient. Risks and benefits of each as well as alternatives were reviewed. All of the patient's questions were answered. The risks of surgery reviewed including but not limited to: Neurovascular damage, wound complication, infection, blood clot, pulmonary embolus, stroke, myocardial infarction, and anesthetic risks up to and including . Continued pain and possible dysfunction were explained. Specific risks of the procedure including later recurrence of deformity. No guarantees were offered. If complications occur, the patient understands the need for further treatment, possible further surgery. Patient verbalizes understanding and wishes to proceed. PLAN: Debridement left diabetic foot infection (2) Peripheral arterial disease: Code(s): I73.9 - Peripheral vascular disease, unspecified Status: Acute Assessment and Plan: ABIs today Subjective Subjective Date/Time Seen: 08/22/20 08:34 Patient states feeling better this a.m.. Review of Systems Review of Systems: All systems reviewed & are unremarkable except as noted in HPI and below Constitutional: Constitutional: Reports no additional constitutional complaints, Denies chills, Denies fever(s) and Denies headache(s) Eyes: Eyes: Reports no additional eye complaints and Denies change in vision ENT: Denies headache(s) and Denies sore throat Cardiovascular: Cardiovascular: Denies chest pain and Denies dyspnea Respiratory: Respiratory: Reports chest congestion, Reports cough and Denies dyspnea Gastrointestinal: Gastrointestinal: Denies diarrhea, Denies nausea and Denies vomiting Genitourinary: Genitourinary: Denies dysuria Musculoskeletal: Musculoskeletal: Reports deformity ( Left foot) and Reports numbness Integumentary/Breasts: Skin/Breast: Reports rash, Reports skin ulcer and Denies wounds Neurologic: Denies headache(s), Denies focal weakness and Denies numbness Psychiatric: Psychiatric: Reports no additional psychiatric complaints Endocrine: Endocrine: Reports no additional endocrine complaints Hematologic/Lymphatic: Hematologic/Lymphatic: Reports no additional hematologic/lymphatic complaints Allergic/Immunologic: Allergic/Immunologic: Reports no additional allergic/immunologic complaints Exam Const: General: healthy appearing; No in distress or confusion Orientation/consciousness: patient oriented x3 and No confusion HENMT: Head: normal to inspection, normocephalic and atraumatic Eyes: Conjunctivae: conjunctivae normal Sclera: sclerae normal Resp: Effort & Inspection: normal respiratory effort and no audible wheezes Neuro: General: patient oriented x3 and No confusion Extrem: Right lower extremity: foot Details: normal capillary refill, normal to inspection, vascular exam Details: dorsalis pedis pulse present and normal capillary refill and motor-sensory exam Details: two point discrimination abnormal Location: in all toes and light-touch abnormal Loc
--- NOTE | 2020-08-22 08:54 | WPDHPUPDATE1 ---
History and Physical Update Update Date/Time: 08/22/20 08:54 History and Physical has been reviewed, including an updated exam of the patient. There are NO changes in the patient's condition. Risks, benefits, and alternatives have been discussed and questions answered. Patient agrees to proceed with procedure.
--- NOTE | 2020-08-22 12:06 | PC.NURSE ---
Patient down to preop at 1145.
[2020-08-22] MEDS: LACTATED RINGERS 1,000 ML 30 ML IV CONT (12:08)
[2020-08-22 12:23] LABS: Glucose Point of Care 204 (65-105)
--- NOTE | 2020-08-22 12:31 | PM.IMPN ---
Progress Note: A&P Assessment and Plan (1) Diabetic foot ulcer with osteomyelitis: Code(s): E11.621 - Type 2 diabetes mellitus with foot ulcer; E11.69 - Type 2 diabetes mellitus with other specified complication; L97.509 - Non-pressure chronic ulcer of other part of unspecified foot with unspecified severity; M86.9 - Osteomyelitis, unspecified Status: Acute Assessment and Plan: He has been started on imipenem and vancomycin Dr. Ponce (orthopedics) has been consulted, pt going for surgery today. (2) Uncontrolled type 2 diabetes mellitus: Qualifiers: Glycemic state: with hyperglycemia Qualified Code(s): E11.65 - Type 2 diabetes mellitus with hyperglycemia Code(s): E11.65 - Type 2 diabetes mellitus with hyperglycemia Status: Acute Assessment and Plan: Patient stopped taking his insulin about 5 years ago for unclear reasons. Hemoglobin A1c is 11.4% today. Pt needs PCP, pt needs Dm educator on discharge, compliance to DM medications emphasized (3) Dehydration: Code(s): E86.0 - Dehydration Status: Resolved Assessment and Plan: Patient is dehydrated, secondary to uncontrolled DM. (4) Gastroesophageal reflux disease: Code(s): K21.9 - Gastro-esophageal reflux disease without esophagitis Status: Acute Assessment and Plan: Start PPI. Subjective Date/time seen: 08/22/20 12:31 Interval history: 65-year-old male with type 2 diabetes mellitus which has been untreated for the last 5 to 6 years who presented to the emergency department early today via private vehicle from home for evaluation of a left foot wound. Pt has pulses on dopper, pt to see DR Arnold orthopedics. Pt going for surgery today. Review of Systems Review of Systems: All systems reviewed & are unremarkable except as noted in HPI and below Exam Narrative: Exam Narrative: General: Chronically ill-appearing male HEENT: Normocephalic, atraumatic. Respiratory: Lungs are clear to auscultation bilaterally. Cardiovascular: Regular rate and rhythm with S1-S2. Gastrointestinal: Abdomen is soft, nontender, and nondistended with positive bowel sounds. Skin: left foot in dressing not completely examined pulses intact Extremities: No cyanosis or clubbing. . Objective Data Vital Signs Vital Signs: Vital Signs - 24 hr 08/21/20 14:00 08/21/20 20:00 08/21/20 22:00 Temperature 36.5 C 36.7 C Pulse Rate 100 86 Respiratory Rate 20 20 20 Blood Pressure 138/78 123/75 Pulse Oximetry 98 98 97 08/22/20 06:00 08/22/20 08:00 08/22/20 11:53 Temperature 37.2 C 36.5 C Pulse Rate 85 85 85 Respiratory Rate 18 18 16 Blood Pressure 133/77 133/74 Pulse Oximetry 93 93 100 Intake/Output Intake/Output: Intake & Output 08/19/20 08/20/20 08/21/20 08/22/20 23:59 23:59 23:59 23:59 Intake Total 3100 3420 550 Output Total 1125 400 Balance 3100 2295 150 Meds/Results Medications: Active Medications Generic Name Dose Route Start Last Admin Trade Name Freq PRN Reason Stop Dose Admin Acetaminophen 650 mg 08/20/20 21:24 Acetaminophen 325 Mg Tablet PO Q4H PRN Mild Pain (1-3) or Fever Aspirin 81 mg 08/21/20 08:00 08/22/20 08:31 Aspirin 81 Mg Chewable Tablet PO 81 mg DAILY@0800 MERARY Administration Dextrose 12.5 gm 08/20/20 22:22 Dextrose 50% 25 Gm/50 Ml Syringe IV PUSH PRN PRN Hypoglycemia Protocol Enoxaparin Sodium 40 mg 08/22/20 09:00 08/22/20 08:31 Enoxaparin 40 Mg/0.4 Ml Syringe SUB-Q 40 mg DAILY MERARY Administration Glucagon 1 mg 08/20/20 22:22 Glucagon For Inj 1 Mg Vial IM PRN PRN Hypoglycemia Protocol Glucose 15 gm 08/20/20 22:22 Glucose Oral Gel 15 Gm Of Glucse In 37.5 Gm Tube PO PRN PRN Hypoglycemia Protocol Dextrose 1,000 mls @ 100 mls/hr 08/20/20 22:22 Dextrose 5% 1,000 Ml IVPB PRN PRN Hypoglycemia Protocol Sod
--- NOTE | 2020-08-22 12:36 | WPDANESEFPP ---
Anes - Eval Final PreProcedure Day of Procedure 08/22/20 12:36 Patient weight: normal Heart: regular rate and rhythm Lungs: clear to auscultation Airway: Mallampati scale class II and special considerations poor dentition Neurological: alert and oriented Last oral intake: >/= 8 hours Emergent: no Anesthetic plan: proceed Anesthesia type and monitoring: general ETT and standard monitoring Informed Consent: The patient's anesthetic plan and its attendant risks and benefits were discussed with the patient/family/POA. Questions were solicited and answers provided to the satisfaction of the patient/family/POA.
[2020-08-22 14:29] LABS: Glucose Point of Care 207 (65-105)
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
--- NOTE | 2020-08-22 16:01 | PC.NURSE ---
Patient returned to floor from postop at 1545.
[2020-08-22] MEDS: DOCUSATE SODIUM 100 MG CAPSULE PO (16:37)
[2020-08-22 17:33] LABS: Glucose Point of Care 195 (65-105)
[2020-08-22] MEDS: INSULIN GLARGINE (*BKC) 100 UNITS/ML 15 UNITS SUB-Q (20:32)
[2020-08-22 20:40] LABS: Glucose Point of Care 186 (65-105)
[2020-08-22] MEDS: ACETAMINOPHEN 325 MG TABLET 650 MG PO (20:55)
[2020-08-23 00:09] LABS: Vancomycin Trough 17.1 ug/mL (10.0-20.0)
[2020-08-23] MEDS: SODIUM CHLORIDE 0.9% IV 1,000 ML 100 ML IV CONT ×2 (00:54→18:48)
[2020-08-23 01:06] VITALS: BP 102/69; PULSE 79; RESP 20; TEMP 36.5; O2SAT 93
[2020-08-23 05:06] VITALS: BP 107/66; PULSE 84; RESP 20; TEMP 36.6; O2SAT 96
[2020-08-23 06:28] LABS: Hematocrit 24.6 % (42.0-52.0); Hemoglobin 8.1 g/dL (14.0-18.0); Mean Corpuscular HGB Conc 32.9 g/dl (32-36); Mean Corpuscular Hemoglobin 30.1 pg (26-34); Mean Corpuscular Volume 91.4 fl (80-100); Platelet Count Result 308 k/mm3 (150-375); Red Blood Count 2.69 M/mm3 (4.6-6.20)
[2020-08-23 06:46] LABS: Anion Gap 2 mmol/L (8-16); Blood Urea Nitrogen 20 mg/dL (9-20); Calcium 7.1 mg/dL (8.4-10.2); Carbon Dioxide 28 mmol/L (22-30); Chloride 102 mmol/L (98-107); Estimated CRCL calculation 66 ml/min; Estimated Glomerular Filt Rate > 60; Glucose 160 mg/dL (75-110); Potassium 4.2 mmol/L (3.4-5.0); Sodium 132 mmol/L (137-145)
[2020-08-23 07:30] LABS: Glucose Point of Care 163 (65-105)
--- NOTE | 2020-08-23 07:34 | WPDANESPN ---
Anes - Prog Note Post-Op Date/Time: 08/23/20 07:34 Cardiovascular status: normal Respiratory status: normal Airway patency: baseline Mental status: baseline Post-Op hydration status: normal Vital Signs: Last Vital Signs Temp 36.6 C 08/23/20 05:06 Pulse 84 08/23/20 05:06 Resp 20 08/23/20 05:06 BP 107/66 08/23/20 05:06 Pulse Ox 96 08/23/20 05:06 Pain Score (VAS): 0 I/O: Intake & Output 08/22/20 08/22/20 08/23/20 15:59 23:59 07:59 Intake Total 0781 864 5974 Output Total 200 400 Balance 1400 -100 800 Laboratory Tests 08/23/20 06:15 08/23/20 06:15 08/22/20 08/22/20 08/22/20 08:23 12:20 14:27 WBC RBC Hgb Hct MCV MCH MCHC RDW Plt Count MPV Sodium Potassium Chloride Carbon Dioxide Anion Gap BUN Creatinine Estim Creat Clear Calc Estimated GFR Glucose POC Capillary Glucose 175 H 204 H 207 H Calcium Vancomycin Trough 08/22/20 08/22/20 08/22/20 16:39 20:31 23:13 WBC RBC Hgb Hct MCV MCH MCHC RDW Plt Count MPV Sodium Potassium Chloride Carbon Dioxide Anion Gap BUN Creatinine Estim Creat Clear Calc Estimated GFR Glucose POC Capillary Glucose 195 H 186 H Calcium Vancomycin Trough 17.1 08/23/20 08/23/20 08/23/20 06:15 06:15 07:24 WBC 18.0 H RBC 2.69 L Hgb 8.1 L Hct 24.6 L MCV 91.4 MCH 30.1 MCHC 32.9 RDW 13.0 Plt Count 308 MPV 9.0 Sodium 132 L Potassium 4.2 Chloride 102 Carbon Dioxide 28 Anion Gap 2 L BUN 20 D Creatinine 1.00 Estim Creat Clear Calc 66 Estimated GFR > 60 Glucose 160 H POC Capillary Glucose 163 H Calcium 7.1 L Vancomycin Trough Microbiology 08/22/20 13:53 Foot Left Gram Stain - Final Post-procedural complaints: none Patient Feedback: Patient satisfied with anesthetic care.
--- NOTE | 2020-08-23 09:14 | PM.PNORT ---
Progress Note: A&P Assessment and Plan (1) Diabetic foot ulcer with osteomyelitis: Code(s): E11.621 - Type 2 diabetes mellitus with foot ulcer; E11.69 - Type 2 diabetes mellitus with other specified complication; L97.509 - Non-pressure chronic ulcer of other part of unspecified foot with unspecified severity; M86.9 - Osteomyelitis, unspecified Status: Acute Assessment and Plan: POD #1: Debridement left DFU Continue NWB LLE. Dressing c/d/i. Continue IV antibiotics. ID consult initiated. Plan for dressing change with [facility] wound clinic nurses today. Continue pain control. Elevate LLE on pillows. (2) Uncontrolled type 2 diabetes mellitus: Qualifiers: Glycemic state: with hyperglycemia Qualified Code(s): E11.65 - Type 2 diabetes mellitus with hyperglycemia Code(s): E11.65 - Type 2 diabetes mellitus with hyperglycemia Status: Acute Assessment and Plan: Patient will require close diabetic control as an outpatient for optimal healing. PCP to be arranged PRIOR to discharge. Care coordination following. 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 Subjective Subjective Date/Time Seen: 08/23/20 09:14 POD #1: Left Foot DFU Debridement No new complaints. Pain well controlled. Review of Systems Review of Systems: All systems reviewed & are unremarkable except as noted in HPI and below Constitutional: Constitutional: Reports no additional constitutional complaints, Denies chills, Denies fever(s) and Denies headache(s) Eyes: Eyes: Reports no additional eye complaints and Denies change in vision ENT: Denies headache(s) and Denies sore throat Cardiovascular: Cardiovascular: Denies chest pain and Denies dyspnea Respiratory: Respiratory: Reports chest congestion, Reports cough and Denies dyspnea Gastrointestinal: Gastrointestinal: Denies diarrhea, Denies nausea and Denies vomiting Genitourinary: Genitourinary: Denies dysuria Musculoskeletal: Musculoskeletal: Reports deformity ( Left foot) and Reports numbness Integumentary/Breasts: Skin/Breast: Reports rash, Reports skin ulcer and Denies wounds Neurologic: Denies headache(s), Denies focal weakness and Denies numbness Psychiatric: Psychiatric: Reports no additional psychiatric complaints Endocrine: Endocrine: Reports no additional endocrine complaints Hematologic/Lymphatic: Hematologic/Lymphatic: Reports no additional hematologic/lymphatic complaints Allergic/Immunologic: Allergic/Immunologic: Reports no additional allergic/immunologic complaints Exam Const: General: healthy appearing; No in distress or confusion Orientation/consciousness: patient oriented x3 and No confusion HENMT: Head: normal to inspection, normocephalic and atraumatic Eyes: Conjunctivae: conjunctivae normal Sclera: sclerae normal Resp: Effort & Inspection: normal respiratory effort and no audible wheezes Neuro: General: patient oriented x3 and No confusion Extrem: Right lower extremity: foot Details: normal capillary refill, normal to inspection, vascular exam Details: dorsalis pedis pulse present and normal capillary refill and motor-sensory exam Details: two point discrimination abnormal Location: in all toes and light-touch abnormal Location: in all toes; no tenderness, no unusual warmth and no ecchymosis Left lower extremity: ankle Details: tenderness and foot Details: abnormal to inspection Details: other ( midfoot amputation) and other (dressing c/d/i) Other: Dressing left foot c/d/i. No bleeding through dressing. Psych: Affect: normal affect Objective Data Vital Signs Vital Signs: Vital Signs - 24 hr 08/22/20 1
[2020-08-23] MEDS: ENOXAPARIN 40 MG/0.4 ML SYRINGE SUB-Q (10:32)
[2020-08-23] MEDS: PANTOPRAZOLE 40 MG TABLET PO (10:33)
[2020-08-23] MEDS: ASPIRIN 81 MG CHEWABLE TABLET PO (10:33)
[2020-08-23] MEDS: DOCUSATE SODIUM 100 MG CAPSULE PO ×2 (10:35→16:42)
--- NOTE | 2020-08-23 11:04 | PCNFU ---
Nutrition Follow-Up Complete: Food and Nutrition Knowledge Deficit as related to knowledge deficit as related to uncontrolled DM as evidenced by no prior diet education. Goal: follow [facility] guidelines at home Meet estimated nutritional needs Patient is progressing towards goal. We will continue current goal. Pt current nutrition is clear liquids advancing as tolerated. Nutrition recommendation: [facility] Last recorded weight is 77.4 kg, no new weight reported. Bowel Motility:+BM reported 4/5 Labs Reviewed:Glu 160,Hct 24.6, Na 132 Meds Noted: NovoLog,Colace,Zofran,Protonix,NS, Vancomycin,Lantus Additional Notes: Patient seen for today for nutrition follow up. Patient is POD 1 Left foot debridement. Patient tolerated clear liquids for breakfast today. He has orders to advance diet as tolerated to diabetic consistent carb diet. Agree with diet orders. Will monitor every 5 days.
[2020-08-23 11:46] LABS: Glucose Point of Care 217 (65-105)
[2020-08-23] MEDS: INSULIN ASPART (*BKC) 100 UNITS/ML SUB-Q ×2 (12:34→16:41)
--- NOTE | 2020-08-23 12:38 | PM.IMPN ---
Progress Note: A&P Assessment and Plan (1) Diabetic foot ulcer with osteomyelitis: Code(s): E11.621 - Type 2 diabetes mellitus with foot ulcer; E11.69 - Type 2 diabetes mellitus with other specified complication; L97.509 - Non-pressure chronic ulcer of other part of unspecified foot with unspecified severity; M86.9 - Osteomyelitis, unspecified Status: Acute Assessment and Plan: He has been started on imipenem and vancomycin Dr. Ponce (orthopedics) has been consulted, pt is sp surgery. Pt is for vac therapy tomorrow. (2) Uncontrolled type 2 diabetes mellitus: Qualifiers: Glycemic state: with hyperglycemia Qualified Code(s): E11.65 - Type 2 diabetes mellitus with hyperglycemia Code(s): E11.65 - Type 2 diabetes mellitus with hyperglycemia Status: Acute Assessment and Plan: Patient stopped taking his insulin about 5 years ago for unclear reasons. Hemoglobin A1c is 11.4% today. Pt needs PCP, pt needs Dm educator on discharge, compliance to DM medications emphasized (3) Dehydration: Code(s): E86.0 - Dehydration Status: Resolved Assessment and Plan: Secondary to uncontrolled DM. (4) Gastroesophageal reflux disease: Code(s): K21.9 - Gastro-esophageal reflux disease without esophagitis Status: Acute Assessment and Plan: Start PPI. Subjective Date/time seen: 08/23/20 12:38 Interval history: 65-year-old male with type 2 diabetes mellitus which has been untreated for the last 5 to 6 years who presented to the emergency department early today via private vehicle from home for evaluation of a left foot wound. Pt sp surgery yesterday, Excisional Debridement left diabetic foot ulcer including muscle and bone. Pt to have wound vac placed tomorrow. Compliance to DM discussed and emphasized. Review of Systems Review of Systems: All systems reviewed & are unremarkable except as noted in HPI and below Exam Narrative: Exam Narrative: General: Chronically ill-appearing male HEENT: Normocephalic, atraumatic. Respiratory: Lungs are clear to auscultation bilaterally. Cardiovascular: Regular rate and rhythm with S1-S2. Gastrointestinal: Abdomen is soft, nontender, and nondistended with positive bowel sounds. Skin: Left foot stump in dressing Extremities: No cyanosis or clubbing. Objective Data Vital Signs Vital Signs: Vital Signs - 24 hr 08/22/20 14:20 08/22/20 14:35 08/22/20 14:50 Temperature 36.2 C L Pulse Rate 80 93 95 Respiratory Rate 20 18 20 Blood Pressure 107/72 130/77 Pulse Oximetry 99 100 91 08/22/20 15:05 08/22/20 15:15 08/22/20 15:21 Temperature 35.9 C L Pulse Rate 94 94 113 H Respiratory Rate 20 23 H 18 Blood Pressure 133/82 141/78 H 162/98 H Pulse Oximetry 94 94 97 08/22/20 15:36 08/22/20 16:06 08/22/20 20:00 Temperature 35.9 C L 36.2 C L Pulse Rate 120 H 105 H 105 H Respiratory Rate 18 18 18 Blood Pressure 153/92 H 148/75 H Pulse Oximetry 97 97 97 08/22/20 21:06 08/23/20 01:06 08/23/20 05:06 Temperature 37.6 C 36.5 C 36.6 C Pulse Rate 102 H 79 84 Respiratory Rate 20 20 20 Blood Pressure 116/72 102/69 107/66 Pulse Oximetry 94 93 96 Intake/Output Intake/Output: Intake & Output 08/20/20 08/21/20 08/22/20 08/23/20 23:59 23:59 23:59 23:59 Intake Total 3100 3420 2050 1260 Output Total 1125 600 400 Balance 3100 2295 1450 860 Meds/Results Medications: Active Medications Generic Name Dose Route Start Last Admin Trade Name Freq PRN Reason Stop Dose Admin Acetaminophen 650 mg 08/20/20 21:24 08/22/20 20:55 Acetaminophen 325 Mg Tablet PO 650 mg Q4H PRN Administration Mild Pain (1-3) or Fever Aspirin 81 mg 08/21/20 08:00 08/23/20 10:33 Aspirin 81 Mg Chewable Tablet PO 81 mg DAILY@0800 MERARY Administration Dextrose 12.5 gm 08/20/20 22:22 Dextrose 50% 25 Gm/50 Ml Syringe IV PUSH PRN PRN Hypoglycemia Protocol Docu
--- NOTE | 2020-08-23 13:32 | WPDINFPN2 ---
Progress Note: A&P Assessment and Plan (1) Diabetic foot ulcer with osteomyelitis: Code(s): E11.621 - Type 2 diabetes mellitus with foot ulcer; E11.69 - Type 2 diabetes mellitus with other specified complication; L97.509 - Non-pressure chronic ulcer of other part of unspecified foot with unspecified severity; M86.9 - Osteomyelitis, unspecified Status: Acute Assessment and Plan: 1. Acute OM of left foot at cuboid 2. DM, poor control REC PipTazo # 1 / 42 days. But I discussed in detail with him that BKA is a very likely end result even if he brings his BS down. He may wish to abandon attempt at medical cure and have BKA done, but I suggested at least 2 weeks of IV therapy first, to control potential lower leg infection. Subjective Date/time seen: 08/23/20 13:32 Objective Data Vital Signs Vital Signs: Vital Signs - 24 hr 08/22/20 14:20 08/22/20 14:35 08/22/20 14:50 Temperature 36.2 C L Pulse Rate 80 93 95 Respiratory Rate 20 18 20 Blood Pressure 107/72 130/77 Pulse Oximetry 99 100 91 08/22/20 15:05 08/22/20 15:15 08/22/20 15:21 Temperature 35.9 C L Pulse Rate 94 94 113 H Respiratory Rate 20 23 H 18 Blood Pressure 133/82 141/78 H 162/98 H Pulse Oximetry 94 94 97 08/22/20 15:36 08/22/20 16:06 08/22/20 20:00 Temperature 35.9 C L 36.2 C L Pulse Rate 120 H 105 H 105 H Respiratory Rate 18 18 18 Blood Pressure 153/92 H 148/75 H Pulse Oximetry 97 97 97 08/22/20 21:06 08/23/20 01:06 08/23/20 05:06 Temperature 37.6 C 36.5 C 36.6 C Pulse Rate 102 H 79 84 Respiratory Rate 20 20 20 Blood Pressure 116/72 102/69 107/66 Pulse Oximetry 94 93 96 Intake/Output Intake/Output: Intake & Output 08/20/20 08/21/20 08/22/20 08/23/20 23:59 23:59 23:59 23:59 Intake Total 3100 3420 2050 1510 Output Total 1125 600 400 Balance 3100 2295 1450 1110 Meds/Results Medications: Active Medications Generic Name Dose Route Start Last Admin Trade Name Freq PRN Reason Stop Dose Admin Acetaminophen 650 mg 08/20/20 21:24 08/22/20 20:55 Acetaminophen 325 Mg Tablet PO 650 mg Q4H PRN Administration Mild Pain (1-3) or Fever Aspirin 81 mg 08/21/20 08:00 08/23/20 10:33 Aspirin 81 Mg Chewable Tablet PO 81 mg DAILY@0800 MERARY Administration Dextrose 12.5 gm 08/20/20 22:22 Dextrose 50% 25 Gm/50 Ml Syringe IV PUSH PRN PRN Hypoglycemia Protocol Docusate Sodium 100 mg 08/22/20 17:00 08/23/20 10:35 Docusate Sodium 100 Mg Capsule PO 100 mg BID MERARY Administration Enoxaparin Sodium 40 mg 08/22/20 09:00 08/23/20 10:32 Enoxaparin 40 Mg/0.4 Ml Syringe SUB-Q 40 mg DAILY MERARY Administration Glucagon 1 mg 08/20/20 22:22 Glucagon For Inj 1 Mg Vial IM PRN PRN Hypoglycemia Protocol Glucose 15 gm 08/20/20 22:22 Glucose Oral Gel 15 Gm Of Glucse In 37.5 Gm Tube PO PRN PRN Hypoglycemia Protocol Dextrose 1,000 mls @ 100 mls/hr 08/20/20 22:22 Dextrose 5% 1,000 Ml IVPB PRN PRN Hypoglycemia Protocol Sodium Chloride 1,000 mls @ 100 mls/hr 08/20/20 22:25 08/23/20 00:54 Normal Saline Iv IV CONT 100 mls/hr .Q10H MERARY Administration Insulin Aspart 3 - 6 units 08/21/20 08:00 08/23/20 12:34 Insulin Aspart (*Bkc) 100 Units/Ml SUB-Q 3 units TIDWM MERARY Administration Protocol Insulin Glargine 15 units 08/20/20 22:25 08/22/20 20:32 Insulin Glargine (*Bkc) 100 Units/Ml 0.2 units/kg (15 units) 15 units SUB-Q Administration HS MERARY Magnesium Hydroxide 30 ml 08/22/20 15:21 Magnesium Hydroxide Susp 30 Ml Udc PO BID PRN Constipation Ondansetron HCl 4 mg 08/20/20 21:24 08/20/20 23:20 Ondansetron Inj 4 Mg/2 Ml Vial IV PUSH 4 mg Q4H PRN Administration Nausea Pantoprazole Sodium 40 mg 08/21/20 09:00 08/23/20 10:33 Pantoprazole 40 Mg Tablet PO 40 mg QAM MERARY Administration Sodium Hypochlorite 1 applic 08/21/20 09:00 08/22/20 08:2
[2020-08-23 14:00] VITALS: BP 135/69; PULSE 93; RESP 18; TEMP 36.6; O2SAT 100
[2020-08-23 16:40] LABS: Glucose Point of Care 232 (65-105)
--- NOTE | 2020-08-23 20:01 | CONS_ITS ---
DATE OF CONSULTATION: 08/23/2020 REASON FOR CONSULTATION: Osteomyelitis, left foot. HISTORY OF PRESENT ILLNESS: A 65-year-old male with longstanding diabetes mellitus with peripheral neuropathy, no other end-organ damage that he is aware of. In 2013 in 2014, he had 2 separate surgeries on his left foot for infection. 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 He then moved to [facility] and in 2016, he saw some physicians at [place] including [facility] where some debridement of a persistent plantar ulcer was performed. The ulcer had never fully healed, did improve with a treatment. He has never gotten set up with a primary care physician here and has not taken any medication for his diabetes in about 6 years. He presented to the emergency room here on August 20, with drainage from his left foot wound. It was markedly worse, 5 days duration. He also had nausea, anorexia, malaise. After evaluation, he was admitted. He has been given imipenem and vancomycin. Consultation requested. He was taken to the operating room yesterday by Dr. Ponce. We had debridement of the cuboid bone, excision of the ulcer including muscle and cultures were collected . Wound was left open with a Betadine soaked gauze. He is now postop. He is on no antibiotics prior to admission and no immunosuppressants. He knows of no recent trauma, having no pain or other discomfort in the lower leg and no fever, rigors, night sweats. ALLERGIES: REGLAN. HABITS: No alcohol, no tobacco. PRESENT MEDICATIONS: List reviewed. No immunosuppressants. PAST MEDICAL HISTORY: In addition to the above, GERD, peripheral vascular disease. FAMILY HISTORY: Not pertinent to his present illness. SOCIAL HISTORY: Single, has a daughter. He is retired from the [employer]. Fluent in [place] and Farsi. REVIEW OF SYSTEMS: Hyperglycemia. 14-point review otherwise negative except as above. PHYSICAL EXAMINATION: GENERAL: male appears actual age. No acute distress. VITAL SIGNS: Afebrile since arrival, 84, 20, 107/66, 96% on room air. SKIN: Warm and dry. No rashes. No ulcers. No erythroderma. EENT: The conjunctivae are normal. The oropharynx oral mucosa normal. Teeth in good repair. NECK: No masses, thyromegaly, meningismus. LUNGS: Clear to auscultation and percussion. CHEST: Equal expansion. Normal AP diameter. No indwelling vascular devices. CARDIAC: Regular rate and rhythm without murmurs or gallops. His popliteal pulse on the left is 2+ and dorsalis pedis on the right is 2+. ABDOMEN: Nontender. No masses, organomegaly, distention. EXTREMITIES: Left foot is dressed. He has no proximal erythema, warmth, tenderness, or crepitus. Right foot is planned. LABORATORY DATA: From the operating room, Gram stain, mixed maribel, culture in process. No blood cultures collected. White count was 21.6, now 18.0, hemoglobin 8.1, platelets are 308. Left shift previously demonstrated. He had respiratory alkalosis on arrival. He has hyponatremia 132. Remainder of electrolytes normal. BUN and creatinine normal. Initial blood sugar 418, now 160. A1c 11.4%. Alkaline phosphatase high. CRP 18.2, albumin 2.2. Vancomycin trough 17. RADIOLOGY: Plain films of the foot showed ulceration with osteomyelitis of the cuboid, previous distal foot amputation. ASSESSMENT: 1. Acute osteomyelitis of the left cuboid bone due to chronic ulcer. Skin maribel suspected. MRSA is unlikely. Mixed maribel is probable, however. 2. Leukocytosis because of #1, other sources unlikely. 3. Diabetes mellitus, type 2, poor control due to medical nonadherence. 4. Previous TMA. RECOMMENDATIONS: 1. Blood cultures are needed. 2. Follow up on wound cultures. 3. Piper
[2020-08-23 21:51] VITALS: BP 110/59; PULSE 86; RESP 18; TEMP 36.7; O2SAT 100
[2020-08-23] MEDS: INSULIN GLARGINE (*BKC) 100 UNITS/ML 15 UNITS SUB-Q (22:40)
[2020-08-23] MEDS: SOD HYPOCHLORITE 1/4 STRENGTH 473 ML 1 APPLIC TOPICAL (22:40)
[2020-08-23 23:00] VITALS: O2SAT 99
[2020-08-24 03:14] LABS: Glucose Point of Care 196 (65-105)
[2020-08-24 05:38] VITALS: BP 133/70; PULSE 84; RESP 18; TEMP 36.8; O2SAT 98
[2020-08-24] MEDS: SODIUM CHLORIDE 0.9% IV 1,000 ML 100 ML IV CONT ×2 (06:33→22:14)
[2020-08-24 07:25] LABS: Glucose Point of Care 149 (65-105)
[2020-08-24] MEDS: DOCUSATE SODIUM 100 MG CAPSULE PO (08:55)
[2020-08-24] MEDS: ENOXAPARIN 40 MG/0.4 ML SYRINGE SUB-Q (08:55)
[2020-08-24] MEDS: SOD HYPOCHLORITE 1/4 STRENGTH 473 ML 1 APPLIC TOPICAL (08:55)
[2020-08-24] MEDS: ASPIRIN 81 MG CHEWABLE TABLET PO (08:55)
[2020-08-24] MEDS: PANTOPRAZOLE 40 MG TABLET PO (08:55)
--- NOTE | 2020-08-24 11:44 | PM.IMPN ---
Progress Note: A&P Assessment and Plan (1) Diabetic foot ulcer with osteomyelitis: Code(s): E11.621 - Type 2 diabetes mellitus with foot ulcer; E11.69 - Type 2 diabetes mellitus with other specified complication; L97.509 - Non-pressure chronic ulcer of other part of unspecified foot with unspecified severity; M86.9 - Osteomyelitis, unspecified Status: Acute Assessment and Plan: He has been started on imipenem and vancomycin, plan now 2 weeks of zosyn today is day 2 Dr. Ponce (orthopedics) has been consulted, pt is sp surgery. Excisional Debridement left diabetic foot ulcer including muscle and bone. Pt is for vac therapy today (2) Uncontrolled type 2 diabetes mellitus: Qualifiers: Glycemic state: with hyperglycemia Qualified Code(s): E11.65 - Type 2 diabetes mellitus with hyperglycemia Code(s): E11.65 - Type 2 diabetes mellitus with hyperglycemia Status: Acute Assessment and Plan: Patient stopped taking his insulin about 5 years ago for unclear reasons. Hemoglobin A1c is 11.4% today. Pt needs PCP, pt needs Dm educator on discharge, compliance to DM medications emphasized (3) Dehydration: Code(s): E86.0 - Dehydration Status: Resolved Assessment and Plan: Secondary to uncontrolled DM. (4) Gastroesophageal reflux disease: Code(s): K21.9 - Gastro-esophageal reflux disease without esophagitis Status: Acute Assessment and Plan: Start PPI. Subjective Date/time seen: 08/24/20 11:45 Interval history: 65-year-old male with type 2 diabetes mellitus which has been untreated for the last 5 to 6 years who presented to the emergency department early today via private vehicle from home for evaluation of a left foot wound. Pt sp surgery yesterday, Excisional Debridement left diabetic foot ulcer including muscle and bone. Pt to have wound vac placed today. Compliance to DM discussed and emphasized. Pt will be here over the weekend and for placement on Thursday. Pt seen by ID and orthopedics. Review of Systems Review of Systems: All systems reviewed & are unremarkable except as noted in HPI and below Exam Narrative: Exam Narrative: General: Chronically ill-appearing male HEENT: Normocephalic, atraumatic. Respiratory: Lungs are clear to auscultation bilaterally. Cardiovascular: Regular rate and rhythm with S1-S2. Gastrointestinal: Abdomen is soft, nontender, and nondistended with positive bowel sounds. Skin: Left foot stump in dressing Extremities: No cyanosis or clubbing. Objective Data Vital Signs Vital Signs: Vital Signs - 24 hr 08/23/20 14:00 08/23/20 21:51 08/23/20 23:00 Temperature 36.6 C 36.7 C Pulse Rate 93 86 Respiratory Rate 18 18 Blood Pressure 135/69 110/59 L Pulse Oximetry 100 100 99 08/24/20 05:38 Temperature 36.8 C Pulse Rate 84 Respiratory Rate 18 Blood Pressure 133/70 Pulse Oximetry 98 Intake/Output Intake/Output: Intake & Output 08/21/20 08/22/20 08/23/20 08/24/20 23:59 23:59 23:59 23:59 Intake Total 3420 2050 3465 1470 Output Total 1524 964 6745 400 Balance 2295 1450 2415 1070 Meds/Results Medications: Active Medications Generic Name Dose Route Start Last Admin Trade Name Freq PRN Reason Stop Dose Admin Acetaminophen 650 mg 08/20/20 21:24 08/22/20 20:55 Acetaminophen 325 Mg Tablet PO 650 mg Q4H PRN Administration Mild Pain (1-3) or Fever Aspirin 81 mg 08/21/20 08:00 08/24/20 08:55 Aspirin 81 Mg Chewable Tablet PO 81 mg DAILY@0800 MERARY Administration Dextrose 12.5 gm 08/20/20 22:22 Dextrose 50% 25 Gm/50 Ml Syringe IV PUSH PRN PRN Hypoglycemia Protocol Docusate Sodium 100 mg 08/22/20 17:00 08/24/20 08:55 Docusate Sodium 100 Mg Capsule PO 100 mg BID MERARY Administration Enoxaparin Sodium 40 mg 08/22/20 09:00 08/24/20 08:55 Enoxaparin 40 Mg/0.4 Ml Syringe SUB-Q 40 mg DAILY MERARY Administration
[2020-08-24 11:47] LABS: Glucose Point of Care 223 (65-105)
[2020-08-24] MEDS: INSULIN ASPART (*BKC) 100 UNITS/ML SUB-Q (11:48)
[2020-08-24 14:00] VITALS: BP 121/53; PULSE 94; RESP 16; TEMP 36.8; O2SAT 100
--- NOTE | 2020-08-24 14:19 | PM.PNORT ---
Progress Note: A&P Assessment and Plan (1) Diabetic foot ulcer with osteomyelitis: Code(s): E11.621 - Type 2 diabetes mellitus with foot ulcer; E11.69 - Type 2 diabetes mellitus with other specified complication; L97.509 - Non-pressure chronic ulcer of other part of unspecified foot with unspecified severity; M86.9 - Osteomyelitis, unspecified Status: Acute Assessment and Plan: POD #2: Debridement left DFU Continue NWB LLE. Wound VAC initiated today. Plan for change on Thursday. Continue IV antibiotics. ID consulted. Recommended 6 weeks of IV antibiotics. BC pending. Continue pain control. Elevate LLE on pillows. (2) Uncontrolled type 2 diabetes mellitus: Qualifiers: Glycemic state: with hyperglycemia Qualified Code(s): E11.65 - Type 2 diabetes mellitus with hyperglycemia Code(s): E11.65 - Type 2 diabetes mellitus with hyperglycemia Status: Acute Assessment and Plan: Patient will require close diabetic control as an outpatient for optimal healing. PCP to be arranged PRIOR to discharge. Care coordination following. 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 Subjective Subjective Date/Time Seen: 08/24/20 14:19 POD #2: Left DFU Debridement Left hand with infiltrated IV, leaking antibiotics. Nursing at bedside. Contact made to IV infusion nurse, new IV obtained during assessment. No new complaints in regards to foot. Review of Systems Review of Systems: All systems reviewed & are unremarkable except as noted in HPI and below Constitutional: Constitutional: Reports no additional constitutional complaints, Denies chills, Denies fever(s) and Denies headache(s) Eyes: Eyes: Reports no additional eye complaints and Denies change in vision ENT: Denies headache(s) and Denies sore throat Cardiovascular: Cardiovascular: Denies chest pain and Denies dyspnea Respiratory: Respiratory: Reports chest congestion, Reports cough and Denies dyspnea Gastrointestinal: Gastrointestinal: Denies diarrhea, Denies nausea and Denies vomiting Genitourinary: Genitourinary: Denies dysuria Musculoskeletal: Musculoskeletal: Reports deformity ( Left foot) and Reports numbness Integumentary/Breasts: Skin/Breast: Reports rash, Reports skin ulcer and Denies wounds Neurologic: Denies headache(s), Denies focal weakness and Denies numbness Psychiatric: Psychiatric: Reports no additional psychiatric complaints Endocrine: Endocrine: Reports no additional endocrine complaints Hematologic/Lymphatic: Hematologic/Lymphatic: Reports no additional hematologic/lymphatic complaints Allergic/Immunologic: Allergic/Immunologic: Reports no additional allergic/immunologic complaints Exam Const: General: healthy appearing; No in distress or confusion Orientation/consciousness: patient oriented x3 and No confusion HENMT: Head: normal to inspection, normocephalic and atraumatic Eyes: Conjunctivae: conjunctivae normal Sclera: sclerae normal Resp: Effort & Inspection: normal respiratory effort and no audible wheezes Neuro: General: patient oriented x3 and No confusion Extrem: Right lower extremity: foot Details: normal capillary refill, normal to inspection, vascular exam Details: dorsalis pedis pulse present and normal capillary refill and motor-sensory exam Details: two point discrimination abnormal Location: in all toes and light-touch abnormal Location: in all toes; no tenderness, no unusual warmth and no ecchymosis Left lower extremity: ankle Details: tenderness and foot Details: abnormal to inspection Details: other ( midfoot amputation) and other (dressing c/d/i) Other: Dressing removed l
[2020-08-24 16:55] LABS: Glucose Point of Care 168 (65-105)
[2020-08-24 22:00] VITALS: BP 119/71; PULSE 71; RESP 16; TEMP 36.1; O2SAT 94
[2020-08-24] MEDS: INSULIN GLARGINE (*BKC) 100 UNITS/ML 15 UNITS SUB-Q (22:17)
[2020-08-24 22:27] LABS: Glucose Point of Care 137 (65-105)
[2020-08-25 06:00] VITALS: BP 116/56; PULSE 80; RESP 16; TEMP 36.3; O2SAT 98
[2020-08-25 07:36] LABS: Glucose Point of Care 76 (65-105)
[2020-08-25 08:00] VITALS: PULSE 80; RESP 16; O2SAT 98
[2020-08-25] MEDS: PANTOPRAZOLE 40 MG TABLET PO (08:18)
[2020-08-25] MEDS: ASPIRIN 81 MG CHEWABLE TABLET PO (08:18)
[2020-08-25] MEDS: DOCUSATE SODIUM 100 MG CAPSULE PO ×2 (08:18→18:00)
[2020-08-25] MEDS: ENOXAPARIN 40 MG/0.4 ML SYRINGE SUB-Q (08:18)
--- NOTE | 2020-08-25 11:02 | PM.PNORT ---
Progress Note: A&P Assessment and Plan (1) Diabetic foot ulcer with osteomyelitis: Code(s): E11.621 - Type 2 diabetes mellitus with foot ulcer; E11.69 - Type 2 diabetes mellitus with other specified complication; L97.509 - Non-pressure chronic ulcer of other part of unspecified foot with unspecified severity; M86.9 - Osteomyelitis, unspecified Status: Acute Assessment and Plan: POD #3: Debridement left DFU Continue NWB LLE. Wound VAC initiated. Plan for change on Thursday. Continue IV antibiotics. ID consult appreciated. Continue pain control. Elevate LLE on pillows. (2) Uncontrolled type 2 diabetes mellitus: Qualifiers: Glycemic state: with hyperglycemia Qualified Code(s): E11.65 - Type 2 diabetes mellitus with hyperglycemia Code(s): E11.65 - Type 2 diabetes mellitus with hyperglycemia Status: Acute Assessment and Plan: Patient will require close diabetic control as an outpatient for optimal healing. PCP to be arranged PRIOR to discharge. Care coordination following. 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 Subjective Subjective Date/Time Seen: 08/25/20 11:02 Postoperative day 3 left foot debridement. Patient up with physical therapy. States feels better. Exam Const: General: healthy appearing; No in distress or confusion Orientation/consciousness: patient oriented x3 and No confusion HENMT: Head: normal to inspection, normocephalic and atraumatic Eyes: Conjunctivae: conjunctivae normal Sclera: sclerae normal Resp: Effort & Inspection: normal respiratory effort and no audible wheezes Neuro: General: patient oriented x3 and No confusion Extrem: Right lower extremity: foot Details: normal capillary refill, normal to inspection, vascular exam Details: dorsalis pedis pulse present and normal capillary refill and motor-sensory exam Details: two point discrimination abnormal Location: in all toes and light-touch abnormal Location: in all toes; no tenderness, no unusual warmth and no ecchymosis Left lower extremity: ankle Details: tenderness and foot Details: abnormal to inspection Details: other ( midfoot amputation) and other (dressing c/d/i) Other: Large wound on the plantar aspect of the heel/hindfoot. Midfoot platar ulceration noted as well. Heel wound with some slough. Midfoot ulcer 100% red/pink wound bed. No purulence. No malodor. Surrounding tissue with improvement in redness, warmth and swelling. Wound VAC Dressing in place. Psych: Affect: normal affect Objective Data Vital Signs Vital Signs: Vital Signs - 24 hr 08/24/20 14:00 08/24/20 22:00 08/25/20 06:00 Temperature 98.3 F 97 F L 97.4 F L Pulse Rate 94 71 80 Respiratory Rate 16 16 16 Blood Pressure 121/53 L 119/71 116/56 L Pulse Oximetry 100 94 98 08/25/20 08:00 Temperature Pulse Rate 80 Respiratory Rate 16 Blood Pressure Pulse Oximetry 98 Intake/Output Intake/Output: Intake & Output 08/22/20 08/23/20 08/24/20 08/25/20 23:59 23:59 23:59 23:59 Intake Total 2050 3465 3335 265 Output Total 600 1050 700 400 Balance 1450 2415 2635 -135 Meds/Results Medications: Active Medications Generic Name Dose Route Start Last Admin Trade Name Freq PRN Reason Stop Dose Admin Acetaminophen 650 mg 08/20/20 21:24 08/22/20 20:55 Acetaminophen 325 Mg Tablet PO 650 mg Q4H PRN Administration Mild Pain (1-3) or Fever Aspirin 81 mg 08/21/20 08:00 08/25/20 08:18 Aspirin 81 Mg Chewable Tablet PO 81 mg DAILY@0800 MERARY Administration Dextrose 12.5 gm 08/20/20 22:22 Dextrose 50% 25 Gm/50 Ml Syringe IV PUSH PRN PRN Hypoglycemia Protoco
[2020-08-25 11:44] LABS: Glucose Point of Care 107 (65-105)
--- NOTE | 2020-08-25 12:03 | PM.IMPN ---
Progress Note: A&P Assessment and Plan (1) Diabetic foot ulcer with osteomyelitis: Code(s): E11.621 - Type 2 diabetes mellitus with foot ulcer; E11.69 - Type 2 diabetes mellitus with other specified complication; L97.509 - Non-pressure chronic ulcer of other part of unspecified foot with unspecified severity; M86.9 - Osteomyelitis, unspecified Status: Acute Assessment and Plan: He has been started on imipenem and vancomycin, plan now 2 weeks of zosyn today is day 4 Dr. Ponce (orthopedics) has been consulted, pt is sp surgery. Excisional Debridement left diabetic foot ulcer including muscle and bone. Pt is for vac therapy today (2) Uncontrolled type 2 diabetes mellitus: Qualifiers: Glycemic state: with hyperglycemia Qualified Code(s): E11.65 - Type 2 diabetes mellitus with hyperglycemia Code(s): E11.65 - Type 2 diabetes mellitus with hyperglycemia Status: Acute Assessment and Plan: Patient stopped taking his insulin about 5 years ago for unclear reasons. Hemoglobin A1c is 11.4% today. Pt needs PCP, pt needs Dm educator on discharge, compliance to DM medications emphasized (3) Dehydration: Code(s): E86.0 - Dehydration Status: Resolved Assessment and Plan: Secondary to uncontrolled DM. stop iv fluids (4) Gastroesophageal reflux disease: Code(s): K21.9 - Gastro-esophageal reflux disease without esophagitis Status: Acute Assessment and Plan: Start PPI. Subjective Date/time seen: 08/25/20 12:03 Interval history: 65-year-old male with type 2 diabetes mellitus which has been untreated for the last 5 to 6 years who presented to the emergency department early today via private vehicle from home for evaluation of a left foot wound. Pt sp surgery yesterday, Excisional Debridement left diabetic foot ulcer including muscle and bone. Pt with vac therapy. Compliance to DM discussed and emphasized. Pt will be here over the weekend and for placement on Thursday. Pt complains of some SOB, order stat CXR. Review of Systems Review of Systems: All systems reviewed & are unremarkable except as noted in HPI and below Exam Narrative: Exam Narrative: General: Chronically ill-appearing male HEENT: Normocephalic, atraumatic. Respiratory: Lungs are clear to auscultation bilaterally. Cardiovascular: Regular rate and rhythm with S1-S2. Gastrointestinal: Abdomen is soft, nontender, and nondistended with positive bowel sounds. Skin: Left foot stump in dressing with vac therapy Extremities: No cyanosis or clubbing. Objective Data Vital Signs Vital Signs: Vital Signs - 24 hr 08/24/20 14:00 08/24/20 22:00 08/25/20 06:00 Temperature 36.8 C 36.1 C L 36.3 C L Pulse Rate 94 71 80 Respiratory Rate 16 16 16 Blood Pressure 121/53 L 119/71 116/56 L Pulse Oximetry 100 94 98 08/25/20 08:00 Temperature Pulse Rate 80 Respiratory Rate 16 Blood Pressure Pulse Oximetry 98 Intake/Output Intake/Output: Intake & Output 08/22/20 08/23/20 08/24/20 08/25/20 23:59 23:59 23:59 23:59 Intake Total 2050 3465 3335 265 Output Total 600 1050 700 400 Balance 1450 2415 2635 -135 Meds/Results Medications: Active Medications Generic Name Dose Route Start Last Admin Trade Name Freq PRN Reason Stop Dose Admin Acetaminophen 650 mg 08/20/20 21:24 08/22/20 20:55 Acetaminophen 325 Mg Tablet PO 650 mg Q4H PRN Administration Mild Pain (1-3) or Fever Aspirin 81 mg 08/21/20 08:00 08/25/20 08:18 Aspirin 81 Mg Chewable Tablet PO 81 mg DAILY@0800 MERARY Administration Dextrose 12.5 gm 08/20/20 22:22 Dextrose 50% 25 Gm/50 Ml Syringe IV PUSH PRN PRN Hypoglycemia Protocol Docusate Sodium 100 mg 08/22/20 17:00 08/25/20 08:18 Docusate Sodium 100 Mg Capsule PO 100 mg BID MERARY Administration Enoxaparin Sodium 40 mg 08/22/20 09:00 08/25/20 08:18 Enoxaparin 40 Mg/0.4 Ml Syringe SUB-Q
[2020-08-25 14:00] VITALS: BP 134/69; PULSE 84; RESP 18; TEMP 36.4; O2SAT 100
[2020-08-25] MEDS: FAMOTIDINE 20 MG TABLET PO ×2 (16:27→20:18)
[2020-08-25 17:08] LABS: Glucose Point of Care 156 (65-105)
[2020-08-25] MEDS: INSULIN GLARGINE (*BKC) 100 UNITS/ML 15 UNITS SUB-Q (20:18)
[2020-08-25 21:09] LABS: Glucose Point of Care 171 (65-105)
[2020-08-25 22:00] VITALS: BP 128/63; PULSE 93; RESP 18; TEMP 36.2; O2SAT 98
[2020-08-26 00:06] LABS: SARS-CoV-2 RNA PCR Negative
[2020-08-26 06:00] VITALS: BP 134/72; PULSE 88; RESP 16; TEMP 36.7; O2SAT 99
[2020-08-26 07:48] LABS: Glucose Point of Care 120 (65-105)
[2020-08-26 08:00] VITALS: PULSE 88; RESP 16; O2SAT 99
[2020-08-26] MEDS: PANTOPRAZOLE 40 MG TABLET PO (08:29)
[2020-08-26] MEDS: FAMOTIDINE 20 MG TABLET PO ×2 (08:29→21:11)
[2020-08-26] MEDS: ENOXAPARIN 40 MG/0.4 ML SYRINGE SUB-Q (08:29)
[2020-08-26] MEDS: ASPIRIN 81 MG CHEWABLE TABLET PO (08:29)
[2020-08-26] MEDS: DOCUSATE SODIUM 100 MG CAPSULE PO ×2 (08:29→17:27)
--- NOTE | 2020-08-26 11:11 | PM.IMPN ---
Progress Note: A&P Assessment and Plan (1) Diabetic foot ulcer with osteomyelitis: Code(s): E11.621 - Type 2 diabetes mellitus with foot ulcer; E11.69 - Type 2 diabetes mellitus with other specified complication; L97.509 - Non-pressure chronic ulcer of other part of unspecified foot with unspecified severity; M86.9 - Osteomyelitis, unspecified Status: Acute Assessment and Plan: He has been started on imipenem and vancomycin, plan now 2 weeks of zosyn today is day 6 Dr. Ponce (orthopedics) has been consulted, pt is sp surgery. Excisional Debridement left diabetic foot ulcer including muscle and bone. Pt is for vac therapy today, Pt to have picc line placed today, hopeful DC tomorrow to facility. (2) Uncontrolled type 2 diabetes mellitus: Qualifiers: Glycemic state: with hyperglycemia Qualified Code(s): E11.65 - Type 2 diabetes mellitus with hyperglycemia Code(s): E11.65 - Type 2 diabetes mellitus with hyperglycemia Status: Acute Assessment and Plan: Patient stopped taking his insulin about 5 years ago for unclear reasons. Hemoglobin A1c is 11.4% today. Pt needs PCP, pt needs Dm educator on discharge, compliance to DM medications emphasized (3) Dehydration: Code(s): E86.0 - Dehydration Status: Resolved Assessment and Plan: Secondary to uncontrolled DM. stop iv fluids (4) Gastroesophageal reflux disease: Code(s): K21.9 - Gastro-esophageal reflux disease without esophagitis Status: Acute Assessment and Plan: Start PPI. Subjective Date/time seen: 08/26/20 11:11 Interval history: 65-year-old male with type 2 diabetes mellitus which has been untreated for the last 5 to 6 years who presented to the emergency department early today via private vehicle from home for evaluation of a left foot wound. Pt sp surgery yesterday, Excisional Debridement left diabetic foot ulcer including muscle and bone. Pt with vac therapy. Compliance to DM discussed and emphasized. Pt will be here over the weekend and for placement on Thursday. Pt feels much better. Review of Systems Review of Systems: All systems reviewed & are unremarkable except as noted in HPI and below Exam Narrative: Exam Narrative: General: Chronically ill-appearing male HEENT: Normocephalic, atraumatic. Respiratory: Lungs are clear to auscultation bilaterally. Cardiovascular: Regular rate and rhythm with S1-S2. Gastrointestinal: Abdomen is soft, nontender, and nondistended with positive bowel sounds. Skin: Left foot stump in dressing with vac therapy Extremities: No cyanosis or clubbing. Objective Data Vital Signs Vital Signs: Vital Signs - 24 hr 08/25/20 14:00 08/25/20 22:00 08/26/20 06:00 Temperature 36.4 C L 36.2 C L 36.7 C Pulse Rate 84 93 88 Respiratory Rate 18 18 16 Blood Pressure 134/69 128/63 134/72 Pulse Oximetry 100 98 99 Intake/Output Intake/Output: Intake & Output 08/23/20 08/24/20 08/25/20 08/26/20 23:59 23:59 23:59 23:59 Intake Total 3465 3335 1545 540 Output Total 1050 700 700 500 Balance 2415 2635 845 40 Meds/Results Medications: Active Medications Generic Name Dose Route Start Last Admin Trade Name Freq PRN Reason Stop Dose Admin Acetaminophen 650 mg 08/20/20 21:24 08/22/20 20:55 Acetaminophen 325 Mg Tablet PO 650 mg Q4H PRN Administration Mild Pain (1-3) or Fever Aspirin 81 mg 08/21/20 08:00 08/26/20 08:29 Aspirin 81 Mg Chewable Tablet PO 81 mg DAILY@0800 MERARY Administration Dextrose 12.5 gm 08/20/20 22:22 Dextrose 50% 25 Gm/50 Ml Syringe IV PUSH PRN PRN Hypoglycemia Protocol Docusate Sodium 100 mg 08/22/20 17:00 08/26/20 08:29 Docusate Sodium 100 Mg Capsule PO 100 mg BID MERARY Administration Enoxaparin Sodium 40 mg 08/22/20 09:00 08/26/20 08:29 Enoxaparin 40 Mg/0.4 Ml Syringe SUB-Q 40 mg DAILY MERARY Administration Famotidine 20 mg 08/25/20 12
[2020-08-26 12:33] LABS: Glucose Point of Care 189 (65-105)
[2020-08-26 16:55] LABS: Glucose Point of Care 198 (65-105)
[2020-08-26] MEDS: INSULIN GLARGINE (*BKC) 100 UNITS/ML 15 UNITS SUB-Q (21:14)
[2020-08-26 21:32] LABS: Glucose Point of Care 278 (65-105)
[2020-08-26 22:00] VITALS: BP 121/67; PULSE 85; RESP 18; TEMP 36.6; O2SAT 96
[2020-08-27 06:00] VITALS: BP 124/71; PULSE 80; RESP 18; TEMP 36.6; O2SAT 94
[2020-08-27 07:31] LABS: Glucose Point of Care 85 (65-105)
[2020-08-27] MEDS: FAMOTIDINE 20 MG TABLET PO (09:02)
[2020-08-27] MEDS: ASPIRIN 81 MG CHEWABLE TABLET PO (09:02)
[2020-08-27] MEDS: ENOXAPARIN 40 MG/0.4 ML SYRINGE SUB-Q (09:03)
[2020-08-27] MEDS: DOCUSATE SODIUM 100 MG CAPSULE PO (09:03)
[2020-08-27] MEDS: PANTOPRAZOLE 40 MG TABLET PO (09:03)
--- NOTE | 2020-08-27 09:04 | PM.PNORT ---
Progress Note: A&P Assessment and Plan (1) Diabetic foot ulcer with osteomyelitis: Code(s): E11.621 - Type 2 diabetes mellitus with foot ulcer; E11.69 - Type 2 diabetes mellitus with other specified complication; L97.509 - Non-pressure chronic ulcer of other part of unspecified foot with unspecified severity; M86.9 - Osteomyelitis, unspecified Status: Acute Assessment and Plan: POD #5: Debridement left DFU Continue NWB LLE. Wound VAC to be removed today, Dakin's Dressing to be placed. Reapplication of wound VAC to be done at SNF upon arrival. Continue IV antibiotics per ID. Midline in place. Continue pain control. Elevate LLE on pillows. Dispo: SNF today when medically cleared. Will arrange f/u in the [facility] clinic. (2) Uncontrolled type 2 diabetes mellitus: Qualifiers: Glycemic state: with hyperglycemia Qualified Code(s): E11.65 - Type 2 diabetes mellitus with hyperglycemia Code(s): E11.65 - Type 2 diabetes mellitus with hyperglycemia Status: Acute Assessment and Plan: Patient will require close diabetic control as an outpatient for optimal healing. PCP to be arranged PRIOR to discharge. Care coordination following. 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 Subjective Subjective Date/Time Seen: 08/27/20 09:04 POD #5: Left DFU debridement No new complaints. Doing well. Plan for d/c to SNF today. Review of Systems Review of Systems: All systems reviewed & are unremarkable except as noted in HPI and below Constitutional: Constitutional: Reports no additional constitutional complaints, Denies chills, Denies fever(s) and Denies headache(s) Eyes: Eyes: Reports no additional eye complaints and Denies change in vision ENT: Denies headache(s) and Denies sore throat Cardiovascular: Cardiovascular: Denies chest pain and Denies dyspnea Respiratory: Respiratory: Reports chest congestion, Reports cough and Denies dyspnea Gastrointestinal: Gastrointestinal: Denies diarrhea, Denies nausea and Denies vomiting Genitourinary: Genitourinary: Denies dysuria Musculoskeletal: Musculoskeletal: Reports deformity ( Left foot) and Reports numbness Integumentary/Breasts: Skin/Breast: Reports rash, Reports skin ulcer and Denies wounds Neurologic: Denies headache(s), Denies focal weakness and Denies numbness Psychiatric: Psychiatric: Reports no additional psychiatric complaints Endocrine: Endocrine: Reports no additional endocrine complaints Hematologic/Lymphatic: Hematologic/Lymphatic: Reports no additional hematologic/lymphatic complaints Allergic/Immunologic: Allergic/Immunologic: Reports no additional allergic/immunologic complaints Exam Const: General: healthy appearing; No in distress or confusion Orientation/consciousness: patient oriented x3 and No confusion HENMT: Head: normal to inspection, normocephalic and atraumatic Eyes: Conjunctivae: conjunctivae normal Sclera: sclerae normal Resp: Effort & Inspection: normal respiratory effort and no audible wheezes Neuro: General: patient oriented x3 and No confusion Extrem: Right lower extremity: foot Details: normal capillary refill, normal to inspection, vascular exam Details: dorsalis pedis pulse present and normal capillary refill and motor-sensory exam Details: two point discrimination abnormal Location: in all toes and light-touch abnormal Location: in all toes; no tenderness, no unusual warmth and no ecchymosis Left lower extremity: ankle Details: tenderness and foot Details: abnormal to inspection Details: other ( midfoot amputation) and other (dressing c/d/i) Other: Wound VAC Dressing i
--- NOTE | 2020-08-27 11:14 | PM.DS ---
DS: Admitting Diagnosis Admitting Diagnosis Admitting Diagnosis: Left foot wound. DS: Discharge Diagnosis Discharge Diagnosis (1) Diabetic foot ulcer with osteomyelitis: Code(s): E11.621 - Type 2 diabetes mellitus with foot ulcer; E11.69 - Type 2 diabetes mellitus with other specified complication; L97.509 - Non-pressure chronic ulcer of other part of unspecified foot with unspecified severity; M86.9 - Osteomyelitis, unspecified Status: Acute Assessment and Plan: He has been started on imipenem and vancomycin, initially seen by ID changed to Iv Zosyn pt to continue on iv zosyn until 10/04/2020. Dr. Ponce (orthopedics) has been consulted, pt is sp surgery. Excisional Debridement left diabetic foot ulcer including muscle and bone. Pt has started on van therapy whie in the hospital, pt has had a mid line inserted prior to discharge to facility. [facility]. (2) Uncontrolled type 2 diabetes mellitus: Qualifiers: Glycemic state: with hyperglycemia Qualified Code(s): E11.65 - Type 2 diabetes mellitus with hyperglycemia Code(s): E11.65 - Type 2 diabetes mellitus with hyperglycemia Status: Acute Assessment and Plan: Patient stopped taking his insulin about 5 years ago for unclear reasons. Hemoglobin A1c is 11.4% today. Pt needs PCP, pt needs Dm educator on discharge, compliance to DM medications emphasized, pt restarted on lantus while in hospital. (3) Dehydration: Code(s): E86.0 - Dehydration Status: Resolved Assessment and Plan: Secondary to uncontrolled DM. Pt had fluid hydration while in hospital, Pt is eating and drinking well now. (4) Gastroesophageal reflux disease: Code(s): K21.9 - Gastro-esophageal reflux disease without esophagitis Status: Acute Assessment and Plan: Start PPI. DS: Summary Hospital Course Hospital Course: 65-year-old male with type 2 diabetes mellitus which has been untreated for the last 5 to 6 years who presented to the emergency department early today via private vehicle from home for evaluation of a left foot wound. Pt sp surgery yesterday, Excisional Debridement left diabetic foot ulcer including muscle and bone. Pt with vac therapy. Compliance to DM discussed and emphasized. Pt o continue on iv zosyn until 10/04/2020 Time Spent with Patient Time attestation: Total time spent providing and/or coordinating discharge services: 40 minutes on day of discharge Exam Narrative: Exam Narrative: General: Chronically ill-appearing male HEENT: Normocephalic, atraumatic. Respiratory: Lungs are clear to auscultation bilaterally. Cardiovascular: Regular rate and rhythm with S1-S2. Gastrointestinal: Abdomen is soft, nontender, and nondistended with positive bowel sounds. Skin: Left foot stump in dressing with vac therapy Extremities: No cyanosis or clubbing. DS: Data Data Completed and Pending Labs on day of discharge: Labs from last 24 hours 08/27/20 08/26/20 08/26/20 07:27 21:10 16:44 POC Capillary Glucose 85 278 H 198 H 08/26/20 12:27 POC Capillary Glucose 189 H Preliminary micro results at discharge 08/23/20 14:02 Blood Culture - Preliminary Blood 08/23/20 14:05 Blood Culture - Preliminary Blood Discharge Plan Discharge Attending physician on discharge: Katie Mcdonald Consulting providers: Frank Villa ; Vini Ponce ; Michel Amaya Discharging Clinician: Katie Mcdonald Anticipated Discharge Date/Time: 08/27/20 11:04 Patient Disposition: SNF Activity: as tolerated Diet: diabetic Wound Care Instructions: follow printed instructions Discharge Instructions: WOUND CARE INSTRUCTIONS Initiate wound vac therapy to the 2 wounds on the left foot. Bridge together. Settings: -125mmHg low continuous pressure using black foam only. Change dressing three times a week. Follow up appointment with Keerthi DOSS
[2020-08-27 11:58] LABS: Glucose Point of Care 89 (65-105)
== END 2020-08-27 13:10 | DRG 629 ==
LOC: ANHED 20:44 → ANH3MEDSUR 08-21 08:05
PROVIDERS: Orthopaedic Surgery; Physician Assistant; Admitting Provider Family Medicine; Emergency Provider Emergency Medicine; Visit Provider Family Medicine
PROC: 0QBM0ZZ Excision of Left Tarsal, Open Approach (ICD-10-PCS; principal; 2020-08-22 13:00)
DX: E11.621 Type 2 diabetes mellitus with foot ulcer (principal); M86.172 Other acute osteomyelitis, left ankle and foot; Z20.822 Contact with and (suspected) exposure to COVID-19; E11.69 Type 2 diabetes mellitus with other specified complication; L97.509 Non-pressure chronic ulcer of other part of unspecified foot with unspecified severity; E11.65 Type 2 diabetes mellitus with hyperglycemia; K21.9 Gastro-esophageal reflux disease without esophagitis; E86.0 Dehydration; E11.42 Type 2 diabetes mellitus with diabetic polyneuropathy; D72.829 Elevated white blood cell count, unspecified; E11.51 Type 2 diabetes mellitus with diabetic peripheral angiopathy without gangrene; I73.9 Peripheral vascular disease, unspecified; Z91.19 Patient's noncompliance with other medical treatment and regimen
CPT/HCPCS: 36415; 36569; 71045; 73630; 80048; 80053; 80061; 80076; 80202; 82010; 82803; 82948; 83036; 83735; 84134; 84443; 85025; 85027; 85610; 85730; 86140; 87040; 87205; 93005; 93971; 96361; 96365; 96375; 96376; 97110; 97116; 97161; 97165; 97530; 97535; 99285; A9270; C1751; C9113; C9803; J0330; J0743; J1650; J1815; J2250; J2405; J2543; J2704; J3370; J7030; J7120; U0003; U0005

== ENCOUNTER 2020-11-23 07:30 | Outpatient (RCR) | payer OTHER, MEDICARE, BC, SELFPAY ==
[2020-09-07 08:30] VITALS: BMI 26.6
--- NOTE | 2020-09-07 09:14 | PM.PNORT ---
Progress Note: A&P Assessment and Plan (1) Diabetic foot ulcer with osteomyelitis: Code(s): E11.621 - Type 2 diabetes mellitus with foot ulcer; E11.69 - Type 2 diabetes mellitus with other specified complication; L97.509 - Non-pressure chronic ulcer of other part of unspecified foot with unspecified severity; M86.9 - Osteomyelitis, unspecified Status: Acute Assessment and Plan: Two weeks status post left foot debridement. No signs of infection at this time. Heel ulcer with significant slough indicated for debridement today. Performed without difficulty or complication. Plan to start Santyl ointment for enzymatic debridement of the slough under the wound VAC dressing. Continue with wound VAC. Continue IV antibiotics. Long discussion today with the patient regarding options for salvage of the foot versus amputation. Patient is considering his options. Follow-up in 1 week for wound VAC dressing change and re-evaluation of slough. 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 Status post excision of osteomyelitis and debridement of left foot. Patient at [facility] with wound vac dressing and IV antibiotics. Exam Const: General: healthy appearing; No in distress or confusion Orientation/consciousness: patient oriented x3 and No confusion HENMT: Head: normal to inspection, normocephalic and atraumatic Eyes: Conjunctivae: conjunctivae normal Sclera: sclerae normal Resp: Effort & Inspection: normal respiratory effort and no audible wheezes Neuro: General: patient oriented x3 and No confusion Extrem: Right lower extremity: foot Details: normal capillary refill, normal to inspection, vascular exam Details: dorsalis pedis pulse present and normal capillary refill and motor-sensory exam Details: two point discrimination abnormal Location: in all toes and light-touch abnormal Location: in all toes; no tenderness, no unusual warmth and no ecchymosis Left lower extremity: ankle Details: tenderness and foot Details: abnormal to inspection Details: other ( midfoot amputation) and other (dressing c/d/i) Other: Wound VAC Dressing in place. Surrounding tissue with improvement in redness, warmth and swelling. Wound VAC changed. Distal ulcer 2.6 x 2.6 x 0.5 cm, heel ulcer measures 3.5 x 9.5 x 1.4 cm. Distal ulcer 100% pink. Heel ulcer 95% slough. Psych: Affect: normal affect Objective Data Meds/Results Medications: Active Medications Generic Name Dose Route Start Last Admin Trade Name Freq PRN Reason Stop Dose Admin Collagenase 1 applic 09/07/20 08:49 Collagenase Oint 30 Gm Tube TOPICAL 12/07/20 23:55 PRN PRN Wound Care
--- NOTE | 2020-09-07 09:18 | P.OP_ITS ---
Procedure Note - Detailed Date of procedure: 09/07/20 Pre-op diagnosis: Diabetic ulcers Left foot, wound vac dressing garcias Post-op diagnosis: same Procedure performed: Left foot debridement, excisional including muscle layer. Forty sq cm. Description of procedure: Indications: Patient is a 65-year-old gentleman with left partial foot amputation. Diabetic infection. Presents to wound clinic with increased slough and devitalized tissue. Indicated for debridement. What was done: Patient identified in the preoperative. Informed consent given. Operative extremity marked. Patient received intravenous antibiotics. Time- out performed confirming patient surgery site. Prepped with alcohol prep solution. Fifteen blade knife used to sharply excise devitalized tissue from the left foot heel ulcer. Skin, subcutaneous tissue and muscle excised. Significant slough tissue debrided. Sterile dressing applied. Patient tolerated well. Plan for return to rehab facility. Anesthesia: none Surgeon: Vini Ponce MD Packing: Yes Complications: None
--- NOTE | 2020-09-14 09:47 | PM.PNORT ---
Progress Note: A&P Assessment and Plan (1) Diabetic foot ulcer with osteomyelitis: Code(s): E11.621 - Type 2 diabetes mellitus with foot ulcer; E11.69 - Type 2 diabetes mellitus with other specified complication; L97.509 - Non-pressure chronic ulcer of other part of unspecified foot with unspecified severity; M86.9 - Osteomyelitis, unspecified Status: Acute Assessment and Plan: Three weeks status post left foot debridement. No signs of infection at this time. Heel ulcer with mild improvement in slough indicated for debridement today. Performed without difficulty or complication. Plan to continue Santyl ointment for enzymatic debridement of the slough under the wound VAC dressing. Continue with wound VAC. Continue IV antibiotics. Discussion again today with the patient regarding options for salvage of the foot versus amputation. Patient is considering his options but would like to continue course ov IV antibiotics. Follow-up in 2 week for wound VAC dressing change and re-evaluation of slough. 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 Tolerating wound VAC dressing changes three times weekly at [facility]. He is on IV antibiotics for an additional three weeks. He does note increase swelling b/l LE. He has not yet obtained a PCP. Review of Systems Review of Systems: All systems reviewed & are unremarkable except as noted in HPI and below Constitutional: Constitutional: Reports no additional constitutional complaints, Denies chills, Denies fever(s) and Denies headache(s) Eyes: Eyes: Reports no additional eye complaints and Denies change in vision ENT: Denies headache(s) and Denies sore throat Cardiovascular: Cardiovascular: Denies chest pain and Denies dyspnea Respiratory: Respiratory: Reports chest congestion, Reports cough and Denies dyspnea Gastrointestinal: Gastrointestinal: Denies diarrhea, Denies nausea and Denies vomiting Genitourinary: Genitourinary: Denies dysuria Musculoskeletal: Musculoskeletal: Reports deformity ( Left foot) and Reports numbness Integumentary/Breasts: Skin/Breast: Reports rash, Reports skin ulcer and Denies wounds Neurologic: Denies headache(s), Denies focal weakness and Denies numbness Psychiatric: Psychiatric: Reports no additional psychiatric complaints Endocrine: Endocrine: Reports no additional endocrine complaints Hematologic/Lymphatic: Hematologic/Lymphatic: Reports no additional hematologic/lymphatic complaints Allergic/Immunologic: Allergic/Immunologic: Reports no additional allergic/immunologic complaints Exam Const: General: healthy appearing; No in distress or confusion Orientation/consciousness: patient oriented x3 and No confusion HENMT: Head: normal to inspection, normocephalic and atraumatic Eyes: Conjunctivae: conjunctivae normal Sclera: sclerae normal Resp: Effort & Inspection: normal respiratory effort and no audible wheezes Neuro: General: patient oriented x3 and No confusion Extrem: Right lower extremity: foot Left lower extremity: ankle and foot Other: Wound VAC changed. Plantar ulcer measures 2.6 x 3.0 x 0.5 cm, heel ulcer measures 5.0x9.5x1.5 cm. Distal ulcer 100% pink. Heel ulcer 80% slough. No surrounding redness/warmth. Swelling. Midfoot amputatioon noted.
--- NOTE | 2020-09-28 09:11 | PM.PNORT ---
Progress Note: A&P Assessment and Plan (1) Diabetic foot ulcer with osteomyelitis: Code(s): E11.621 - Type 2 diabetes mellitus with foot ulcer; E11.69 - Type 2 diabetes mellitus with other specified complication; L97.509 - Non-pressure chronic ulcer of other part of unspecified foot with unspecified severity; M86.9 - Osteomyelitis, unspecified Status: Acute Assessment and Plan: 5 weeks status post left foot debridement. No signs of infection at this time. Heel ulcer with mild improvement in slough indicated for debridement today. Performed without difficulty or complication. Plan to continue Santyl ointment for enzymatic debridement of the slough under the wound VAC dressing. Continue with wound VAC. Continue IV antibiotics. Discussion again today with the patient regarding options for salvage of the foot versus amputation. Patient is considering his options but would like to continue course ov IV antibiotics. Follow-up in 2 week for wound VAC dressing change and re-evaluation of slough. and planned course for home treatment after discharge from longterm. 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 Tolerating wound VAC dressing changes three times weekly at [facility]. He is on IV antibiotics for an additional 1 week. He does note increase swelling b/l LE. He has Contacted Dr. Mclaughlin to establish as PCP. Appointment made for . Review of Systems Review of Systems: All systems reviewed & are unremarkable except as noted in HPI and below Constitutional: Constitutional: Reports no additional constitutional complaints, Denies chills, Denies fever(s) and Denies headache(s) Eyes: Eyes: Reports no additional eye complaints and Denies change in vision ENT: Denies headache(s) and Denies sore throat Cardiovascular: Cardiovascular: Denies chest pain and Denies dyspnea Respiratory: Respiratory: Reports chest congestion, Reports cough and Denies dyspnea Gastrointestinal: Gastrointestinal: Denies diarrhea, Denies nausea and Denies vomiting Genitourinary: Genitourinary: Denies dysuria Musculoskeletal: Musculoskeletal: Reports deformity ( Left foot) and Reports numbness Integumentary/Breasts: Skin/Breast: Reports rash, Reports skin ulcer and Denies wounds Neurologic: Denies headache(s), Denies focal weakness and Denies numbness Psychiatric: Psychiatric: Reports no additional psychiatric complaints Endocrine: Endocrine: Reports no additional endocrine complaints Hematologic/Lymphatic: Hematologic/Lymphatic: Reports no additional hematologic/lymphatic complaints Allergic/Immunologic: Allergic/Immunologic: Reports no additional allergic/immunologic complaints Exam Const: General: healthy appearing; No in distress or confusion Orientation/consciousness: patient oriented x3 and No confusion HENMT: Head: normal to inspection, normocephalic and atraumatic Eyes: Conjunctivae: conjunctivae normal Sclera: sclerae normal Resp: Effort & Inspection: normal respiratory effort and no audible wheezes Neuro: General: patient oriented x3 and No confusion Extrem: Right lower extremity: foot Left lower extremity: ankle and foot Other: Wound VAC changed. Plantar ulcer measures 2.5 x 3.0 x 0.4 cm, heel ulcer measures 4.5x8.2x1 cm. Distal ulc
--- NOTE | 2020-10-09 08:37 | PM.IMHP ---
H&P: HPI History of Present Illness Date/Time: 10/09/20 08:37 Chief Complaint: chronic left diabetic foot ulcer Narrative: 65-year-old male follows up in the [facility] wound clinic today for re-evaluation of chronic left diabetic foot ulcer. He has finished his course of IV antibiotics and has been discharged from the group home facility to home with home health. Home health as began daily dressing changes awaiting his wound clinic evaluation. He has been utilizing Santyl for autolytic debridement. He denies fever, chills, night sweats, nausea, vomiting or diarrhea. He continues to suffer from left lower extremity swelling. No new complaints today. Review of Systems Review of Systems: All systems reviewed & are unremarkable except as noted in HPI and below Constitutional: Constitutional: Reports no additional constitutional complaints, Denies chills, Denies fever(s) and Denies headache(s) Eyes: Eyes: Reports no additional eye complaints and Denies change in vision ENT: Denies headache(s) and Denies sore throat Cardiovascular: Cardiovascular: Denies chest pain and Denies dyspnea Respiratory: Respiratory: Reports chest congestion, Reports cough and Denies dyspnea Gastrointestinal: Gastrointestinal: Denies diarrhea, Denies nausea and Denies vomiting Genitourinary: Genitourinary: Denies dysuria Musculoskeletal: Musculoskeletal: Reports deformity ( Left foot) and Reports numbness Integumentary/Breasts: Skin/Breast: Reports rash, Reports skin ulcer and Denies wounds Neurologic: Denies headache(s), Denies focal weakness and Denies numbness Psychiatric: Psychiatric: Reports no additional psychiatric complaints Endocrine: Endocrine: Reports no additional endocrine complaints Hematologic/Lymphatic: Hematologic/Lymphatic: Reports no additional hematologic/lymphatic complaints Allergic/Immunologic: Allergic/Immunologic: Reports no additional allergic/immunologic complaints [facility] Past Medical History Medical History Dehydration Diabetic foot ulcer with osteomyelitis Diabetic peripheral neuropathy Gastroesophageal reflux disease History of osteomyelitis 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 Uncontrolled diabetes mellitus Uncontrolled type 2 diabetes mellitus Surgical History Surgical History Amputation of left midfoot (~2014) As treatment of osteomyelitis, done in [place]. Status post left foot surgery Patient reports multiple debridements for osteomyelitis of the left foot prior to mid foot amputation. Family History Family History Father Renal cell carcinoma Social History Social History Social History: The patient lives in his own home in [place]. He has a daughter who lives in [place]. 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 Lifelong nonsmoker. He has not consumed alcohol for 3 years. No drug use. He designates his daughter, Cassandra Montoya, as his surrogate decision maker and he wishes to be a full code. Smoking status: Never smoker Alcohol intake: never Substance use: never Gender identity (if verbalized by the patient): Male Spiritual care concerns: No Meds Home Medications and Allergies Home Medications Medication Instructions Recorded Confirmed Type acetaminophen [Mapap 650 mg PO Q4H PRN #30 tablet 08/27/20 09/07/20 Rx (acetaminophen)] aspirin [Children's Aspirin] 81 mg PO DAILY@0800 #30 tablet 08/27/20 09/07/20 Rx docusate sodium 100 mg PO BID #60 cap 08/27/20 09/07/20 Rx famotidine 20 mg PO Q12HR #60 tablet 08/27/20 09/07/20 Rx insulin glargine [Lantus U-100 15 unit SUBCU
--- NOTE | 2020-10-19 13:33 | PM.IMHP ---
H&P: HPI History of Present Illness Date/Time: 10/19/20 13:33 Chief Complaint: Left DFU Narrative: 65-year-old male follows up in the [facility] wound clinic today for re-evaluation of chronic left diabetic foot ulcer. He has finished his course of IV antibiotics and has been discharged from the nursing home facility to home with home health. Home health has began daily dressing changes. He was supposed to have a wound VAC but the produce associate broke. He has been awaiting replacement parts from the company. We have called on his behalf and they were scheduled to overnight the appropriate parts. He has been utilizing Santyl for autolytic debridement in the interim. He denies fever, chills, night sweats, nausea, vomiting or diarrhea. He continues to suffer from left lower extremity swelling, 3+ LLE. He has been seen by his PCP and is beginning general work up. Review of Systems Review of Systems: All systems reviewed & are unremarkable except as noted in HPI and below Constitutional: Constitutional: Reports no additional constitutional complaints, Denies chills, Denies fever(s) and Denies headache(s) Eyes: Eyes: Reports no additional eye complaints and Denies change in vision ENT: Denies headache(s) and Denies sore throat Cardiovascular: Cardiovascular: Denies chest pain and Denies dyspnea Respiratory: Respiratory: Reports chest congestion, Reports cough and Denies dyspnea Gastrointestinal: Gastrointestinal: Denies diarrhea, Denies nausea and Denies vomiting Genitourinary: Genitourinary: Denies dysuria Musculoskeletal: Musculoskeletal: Reports deformity ( Left foot) and Reports numbness Integumentary/Breasts: Skin/Breast: Reports rash, Reports skin ulcer and Denies wounds Neurologic: Denies headache(s), Denies focal weakness and Denies numbness Psychiatric: Psychiatric: Reports no additional psychiatric complaints Endocrine: Endocrine: Reports no additional endocrine complaints Hematologic/Lymphatic: Hematologic/Lymphatic: Reports no additional hematologic/lymphatic complaints Allergic/Immunologic: Allergic/Immunologic: Reports no additional allergic/immunologic complaints [facility] Past Medical History Medical History Dehydration Diabetic foot ulcer with osteomyelitis Diabetic peripheral neuropathy Gastroesophageal reflux disease History of osteomyelitis 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 Uncontrolled diabetes mellitus Uncontrolled type 2 diabetes mellitus Surgical History Surgical History Amputation of left midfoot (~2014) As treatment of osteomyelitis, done in [place]. Status post left foot surgery Patient reports multiple debridements for osteomyelitis of the left foot prior to mid foot amputation. Family History Family History Father Renal cell carcinoma Social History Social History Social History: The patient lives in his own home in [place]. He has a daughter who lives in [place]. 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 Lifelong nonsmoker. He has not consumed alcohol for 3 years. No drug use. He designates his daughter, Cassandra Montoya, as his surrogate decision maker and he wishes to be a full code. Smoking status: Never smoker Second hand tobacco smoke exposure: Yes Alcohol intake: never Substance use: never Gender identity (if verbalized by the patient): Male Spiritual care concerns: No Meds Home Medications and Allergies Home Medications Medication Instructions Recorded Confirmed Type aspirin 81 mg tablet,delayed 81 mg PO DAILY #1 tablet 10/17/20 10/17/20 Rx release
--- NOTE | 2020-10-26 09:07 | PM.IMHP ---
H&P: HPI History of Present Illness Date/Time: 10/26/20 09:07 Chief Complaint: Left DFU Narrative: 65-year-old male with a history of left transmetatarsal amputation follows up in the [facility] wound clinic today for re-evaluation of chronic left diabetic foot ulcer. Currently at home with home health. Not currently on antibiotics. He now has wound VAC in place. He denies fever, chills, night sweats, nausea, vomiting or diarrhea. He continues to suffer from left lower extremity swelling, 2+ LLE. Mild improvement. Review of Systems Review of Systems: All systems reviewed & are unremarkable except as noted in HPI and below Constitutional: Constitutional: Reports no additional constitutional complaints, Denies chills, Denies fever(s) and Denies headache(s) Eyes: Eyes: Reports no additional eye complaints and Denies change in vision ENT: Denies headache(s) and Denies sore throat Cardiovascular: Cardiovascular: Denies chest pain and Denies dyspnea Respiratory: Respiratory: Reports chest congestion, Reports cough and Denies dyspnea Gastrointestinal: Gastrointestinal: Denies diarrhea, Denies nausea and Denies vomiting Genitourinary: Genitourinary: Denies dysuria Musculoskeletal: Musculoskeletal: Reports deformity ( Left foot) and Reports numbness Integumentary/Breasts: Skin/Breast: Reports rash, Reports skin ulcer and Denies wounds Neurologic: Denies headache(s), Denies focal weakness and Denies numbness Psychiatric: Psychiatric: Reports no additional psychiatric complaints Endocrine: Endocrine: Reports no additional endocrine complaints Hematologic/Lymphatic: Hematologic/Lymphatic: Reports no additional hematologic/lymphatic complaints Allergic/Immunologic: Allergic/Immunologic: Reports no additional allergic/immunologic complaints [facility] Past Medical History Medical History Dehydration Diabetic foot ulcer with osteomyelitis Diabetic peripheral neuropathy Gastroesophageal reflux disease History of osteomyelitis 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 Uncontrolled diabetes mellitus Uncontrolled type 2 diabetes mellitus Surgical History Surgical History Amputation of left midfoot (~2014) As treatment of osteomyelitis, done in [place]. Status post left foot surgery Patient reports multiple debridements for osteomyelitis of the left foot prior to mid foot amputation. Family History Family History Father Renal cell carcinoma Social History Social History Social History: The patient lives in his own home in [place]. He has a daughter who lives in [place]. 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 Lifelong nonsmoker. He has not consumed alcohol for 3 years. No drug use. He designates his daughter, Cassandra Montoya, as his surrogate decision maker and he wishes to be a full code. Smoking status: Never smoker Second hand tobacco smoke exposure: Yes Alcohol intake: never Substance use: never Gender identity (if verbalized by the patient): Male Spiritual care concerns: No Meds Home Medications and Allergies Home Medications Medication Instructions Recorded Confirmed Type aspirin 81 mg tablet,delayed 81 mg PO DAILY #1 tablet 10/17/20 10/17/20 Rx release blood sugar diagnostic #100 ea 10/17/20 Rx blood-glucose meter #1 ea 10/17/20 Rx lancets #100 ea 10/17/20 Rx rosuvastatin 5 mg tablet 5 mg PO DAILY #30 tablet 10/17/20 10/17/20 Rx insulin glargine 100 unit/mL (3 15 unit SUBCUT QAM #15 ml 10/24/20 Rx mL) subcutaneous pen Allergies Allergy/AdvReac Type Severity Reaction Status Date
--- NOTE | 2020-11-23 09:25 | PM.IMHP ---
H&P: HPI History of Present Illness Date/Time: 11/23/20 09:25 Chief Complaint: Left diabetic foot ulcer Narrative: 65-year-old gentleman with peripheral neuropathy and diabetes presents for follow-up to the [facility] with outpatient wound clinic for re-evaluation of a left diabetic foot ulcer. Thirteen weeks status post debridement. He is at home with home health assistance for dressing changes. They are unable to obtain the proper wound VAC equipment and wound VAC dressing was stopped and he was switched to dry dressing. He reports no other problems. Review of Systems Review of Systems: All systems reviewed & are unremarkable except as noted in HPI and below Constitutional: Constitutional: Reports no additional constitutional complaints, Denies chills, Denies fever(s) and Denies headache(s) Eyes: Eyes: Reports no additional eye complaints and Denies change in vision ENT: Denies headache(s) and Denies sore throat Cardiovascular: Cardiovascular: Denies chest pain and Denies dyspnea Respiratory: Respiratory: Reports chest congestion, Reports cough and Denies dyspnea Gastrointestinal: Gastrointestinal: Denies diarrhea, Denies nausea and Denies vomiting Genitourinary: Genitourinary: Denies dysuria Musculoskeletal: Musculoskeletal: Reports deformity ( Left foot) and Reports numbness Integumentary/Breasts: Skin/Breast: Reports rash, Reports skin ulcer and Denies wounds Neurologic: Denies headache(s), Denies focal weakness and Denies numbness Psychiatric: Psychiatric: Reports no additional psychiatric complaints Endocrine: Endocrine: Reports no additional endocrine complaints Hematologic/Lymphatic: Hematologic/Lymphatic: Reports no additional hematologic/lymphatic complaints Allergic/Immunologic: Allergic/Immunologic: Reports no additional allergic/immunologic complaints [facility] Past Medical History Medical History Dehydration Diabetic foot ulcer with osteomyelitis Diabetic peripheral neuropathy Gastroesophageal reflux disease History of osteomyelitis 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 Uncontrolled diabetes mellitus Uncontrolled type 2 diabetes mellitus Surgical History Surgical History Amputation of left midfoot (~2014) As treatment of osteomyelitis, done in [place]. Status post left foot surgery Patient reports multiple debridements for osteomyelitis of the left foot prior to mid foot amputation. Family History Family History Father Renal cell carcinoma Social History Social History Social History: The patient lives in his own home in [place]. He has a daughter who lives in [place]. 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 Lifelong nonsmoker. He has not consumed alcohol for 3 years. No drug use. He designates his daughter, Cassandra Montoya, as his surrogate decision maker and he wishes to be a full code. Smoking status: Never smoker Second hand tobacco smoke exposure: Yes Alcohol intake: never Substance use: never Gender identity (if verbalized by the patient): Male Spiritual care concerns: No Meds Home Medications and Allergies Home Medications Medication Instructions Recorded Confirmed Type aspirin 81 mg tablet,delayed 81 mg PO DAILY #1 tablet 10/17/20 10/17/20 Rx release blood sugar diagnostic #100 ea 10/17/20 Rx blood-glucose meter #1 ea 10/17/20 Rx lancets #100 ea 10/17/20 Rx rosuvastatin 5 mg tablet 5 mg PO DAILY #30 tablet 10/17/20 10/17/20 Rx insulin glargine 100 unit/mL (3 15 unit SUBCUT QAM #15 ml 10/24/20 Rx mL) subcutaneous pen Allergies
== END 2020-12-06 23:59 | disposition home or self-care (01) ==
LOC: ANHWOC 07:30
PROVIDERS: Referring Provider Orthopaedic Surgery; Visit Provider Nurse Practitioner Family
DX: E11.621 Type 2 diabetes mellitus with foot ulcer (principal); L97.429 Non-pressure chronic ulcer of left heel and midfoot with unspecified severity
CPT/HCPCS: 11042; 97606; 99212; G0463

== ENCOUNTER 2021-03-08 07:45 | Outpatient (RCR) | payer MEDICARE, BC, OTHER, SELFPAY ==
[2020-12-07 00:04] VITALS: BMI 26.6
--- NOTE | 2020-12-14 08:49 | PM.IMHP ---
H&P: HPI History of Present Illness Date/Time: 12/14/20 08:49 Chief Complaint: Left diabetic foot ulcer Narrative: 65-year-old gentleman with peripheral neuropathy and diabetes presents for follow-up to the [facility] with outpatient wound clinic for re-evaluation of a left diabetic foot ulcer. 16 weeks status post debridement. He is at home with home health assistance for dressing changes. home health coming out twice a week for dressing changes systems. Patient doing the dressing changes in between on his own. He reports no other problems. Review of Systems Review of Systems: All systems reviewed & are unremarkable except as noted in HPI and below Constitutional: Constitutional: Reports no additional constitutional complaints, Denies chills, Denies fever(s) and Denies headache(s) Eyes: Eyes: Reports no additional eye complaints and Denies change in vision ENT: Denies headache(s) and Denies sore throat Cardiovascular: Cardiovascular: Denies chest pain and Denies dyspnea Respiratory: Respiratory: Reports chest congestion, Reports cough and Denies dyspnea Gastrointestinal: Gastrointestinal: Denies diarrhea, Denies nausea and Denies vomiting Genitourinary: Genitourinary: Denies dysuria Musculoskeletal: Musculoskeletal: Reports deformity ( Left foot) and Reports numbness Integumentary/Breasts: Skin/Breast: Reports rash, Reports skin ulcer and Denies wounds Neurologic: Denies headache(s), Denies focal weakness and Denies numbness Psychiatric: Psychiatric: Reports no additional psychiatric complaints Endocrine: Endocrine: Reports no additional endocrine complaints Hematologic/Lymphatic: Hematologic/Lymphatic: Reports no additional hematologic/lymphatic complaints Allergic/Immunologic: Allergic/Immunologic: Reports no additional allergic/immunologic complaints [facility] Past Medical History Medical History Dehydration Diabetic foot ulcer with osteomyelitis Diabetic peripheral neuropathy Gastroesophageal reflux disease History of osteomyelitis 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 Uncontrolled diabetes mellitus Uncontrolled type 2 diabetes mellitus Surgical History Surgical History Amputation of left midfoot (~2014) As treatment of osteomyelitis, done in [place]. Status post left foot surgery Patient reports multiple debridements for osteomyelitis of the left foot prior to mid foot amputation. Family History Family History Father Renal cell carcinoma Social History Social History Social History: The patient lives in his own home in [place]. He has a daughter who lives in [place]. 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 Lifelong nonsmoker. He has not consumed alcohol for 3 years. No drug use. He designates his daughter, Cassandra Montoya, as his surrogate decision maker and he wishes to be a full code. Smoking status: Never smoker Second hand tobacco smoke exposure: Yes Alcohol intake: never Substance use: never Gender identity (if verbalized by the patient): Male Spiritual care concerns: No Meds Home Medications and Allergies Home Medications Medication Instructions Recorded Confirmed Type blood sugar diagnostic #100 ea 10/17/20 11/27/20 Rx blood-glucose meter #1 ea 10/17/20 11/27/20 Rx lancets #100 ea 10/17/20 11/27/20 Rx cholecalciferol (vitamin D3) 1,250 50,000 unit PO WEEKLY #10 cap 11/27/20 11/27/20 Rx mcg (50,000 unit) capsule dapagliflozin 5 mg tablet 5 mg PO DAILY #30 tablet 11/27/20 11/27/20 Rx insulin glargine 100 unit/mL (3 5 unit SUBCUT QAM #15 ml 11/27/20 11/27/20
--- NOTE | 2020-12-14 08:55 | W.PM.PROC2 ---
Procedure Note - Detailed Date of Procedure 12/14/20 Pre-op Diagnosis Diabetic ulcers Left foot Post-op Diagnosis same Procedure Performed excisional debridement of left diabetic foot ulcer 14 sq cm. Surgeon Vini Ponce MD Anesthesia none Indications 65-year-old gentleman with diabetes and peripheral neuropathy with left diabetic foot ulcer. Devitalized tissue present requires debridement. Description of Procedure Patient identified and site confirmed. Area cleansed with alcohol prep solution. Fifteen blade knife used to debride skin subcutaneous tissue from the left diabetic foot ulcers. No bleeding encountered. Sterile dressing applied. Estimated Blood Loss 0 Complications None Condition stable Disposition no change ( Home with home health)
--- NOTE | 2021-01-04 09:08 | PM.IMHP ---
H&P: HPI History of Present Illness Date/Time: 01/04/21 09:08 Chief Complaint: left diabetic foot ulcer Narrative: 65-year-old gentleman with peripheral neuropathy and diabetes presents for follow-up to the [facility] outpatient wound clinic for re-evaluation of a left diabetic foot ulcer. 4mos status post debridement. He is at home with home health assistance for dressing changes. home health coming out twice a week for dressing changes. Patient doing the dressing changes in between on his own. He reports no new problems. Review of Systems Review of Systems: All systems reviewed & are unremarkable except as noted in HPI and below Constitutional: Constitutional: Reports no additional constitutional complaints, Denies chills, Denies fever(s) and Denies headache(s) Eyes: Eyes: Reports no additional eye complaints and Denies change in vision ENT: Denies headache(s) and Denies sore throat Cardiovascular: Cardiovascular: Denies chest pain and Denies dyspnea Respiratory: Respiratory: Reports chest congestion, Reports cough and Denies dyspnea Gastrointestinal: Gastrointestinal: Denies diarrhea, Denies nausea and Denies vomiting Genitourinary: Genitourinary: Denies dysuria Musculoskeletal: Musculoskeletal: Reports deformity ( Left foot) and Reports numbness Integumentary/Breasts: Skin/Breast: Reports rash, Reports skin ulcer and Denies wounds Neurologic: Denies headache(s), Denies focal weakness and Denies numbness Psychiatric: Psychiatric: Reports no additional psychiatric complaints Endocrine: Endocrine: Reports no additional endocrine complaints Hematologic/Lymphatic: Hematologic/Lymphatic: Reports no additional hematologic/lymphatic complaints Allergic/Immunologic: Allergic/Immunologic: Reports no additional allergic/immunologic complaints [facility] Past Medical History Medical History Dehydration Diabetic foot ulcer with osteomyelitis Diabetic peripheral neuropathy Gastroesophageal reflux disease History of osteomyelitis 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 Uncontrolled diabetes mellitus Uncontrolled type 2 diabetes mellitus Surgical History Surgical History Amputation of left midfoot (~2014) As treatment of osteomyelitis, done in [place]. Status post left foot surgery Patient reports multiple debridements for osteomyelitis of the left foot prior to mid foot amputation. Family History Family History Father Renal cell carcinoma Social History Social History Social History: The patient lives in his own home in [place]. He has a daughter who lives in [place]. 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 Lifelong nonsmoker. He has not consumed alcohol for 3 years. No drug use. He designates his daughter, Cassandra Montoya, as his surrogate decision maker and he wishes to be a full code. Smoking status: Never smoker Second hand tobacco smoke exposure: Yes Alcohol intake: never Substance use: never Gender identity (if verbalized by the patient): Male Spiritual care concerns: No Meds Home Medications and Allergies Home Medications Medication Instructions Recorded Confirmed Type blood sugar diagnostic #100 ea 10/17/20 11/27/20 Rx blood-glucose meter #1 ea 10/17/20 11/27/20 Rx lancets #100 ea 10/17/20 11/27/20 Rx cholecalciferol (vitamin D3) 1,250 50,000 unit PO WEEKLY #10 cap 11/27/20 11/27/20 Rx mcg (50,000 unit) capsule dapagliflozin 5 mg tablet 5 mg PO DAILY #30 tablet 11/27/20 11/27/20 Rx insulin glargine 100 unit/mL (3 5 unit SUBCUT QAM #15 ml 11/27/20 11/27/20 Rx mL) subcutaneo
--- NOTE | 2021-01-22 09:48 | PM.IMHP ---
H&P: HPI History of Present Illness Date/Time: 01/22/21 09:48 Chief Complaint: Left DFU Narrative: 65-year-old gentleman with peripheral neuropathy and diabetes presents for follow-up to the [facility] outpatient wound clinic for re-evaluation of a left diabetic foot ulcer. 5 months status post debridement. He is at home with home health assistance for dressing changes. Home health is performing dressing changes two times weekly. Patient doing the dressing changes in between on his own. He reports no new problems. He reports improvement in appearance. Review of Systems Review of Systems: All systems reviewed & are unremarkable except as noted in HPI and below Constitutional: Constitutional: Reports no additional constitutional complaints, Denies chills, Denies fever(s) and Denies headache(s) Eyes: Eyes: Reports no additional eye complaints and Denies change in vision ENT: Denies headache(s) and Denies sore throat Cardiovascular: Cardiovascular: Denies chest pain and Denies dyspnea Respiratory: Respiratory: Reports chest congestion, Reports cough and Denies dyspnea Gastrointestinal: Gastrointestinal: Denies diarrhea, Denies nausea and Denies vomiting Genitourinary: Genitourinary: Denies dysuria Musculoskeletal: Musculoskeletal: Reports deformity ( Left foot) and Reports numbness Integumentary/Breasts: Skin/Breast: Reports rash, Reports skin ulcer and Denies wounds Neurologic: Denies headache(s), Denies focal weakness and Denies numbness Psychiatric: Psychiatric: Reports no additional psychiatric complaints Endocrine: Endocrine: Reports no additional endocrine complaints Hematologic/Lymphatic: Hematologic/Lymphatic: Reports no additional hematologic/lymphatic complaints Allergic/Immunologic: Allergic/Immunologic: Reports no additional allergic/immunologic complaints [facility] Past Medical History Medical History Dehydration Diabetic foot ulcer with osteomyelitis Diabetic peripheral neuropathy Gastroesophageal reflux disease History of osteomyelitis 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 Uncontrolled diabetes mellitus Uncontrolled type 2 diabetes mellitus Surgical History Surgical History Amputation of left midfoot (~2014) As treatment of osteomyelitis, done in [place]. Status post left foot surgery Patient reports multiple debridements for osteomyelitis of the left foot prior to mid foot amputation. Family History Family History Father Renal cell carcinoma Social History Social History Social History: The patient lives in his own home in [place]. He has a daughter who lives in [place]. 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 Lifelong nonsmoker. He has not consumed alcohol for 3 years. No drug use. He designates his daughter, Cassandra Montoya, as his surrogate decision maker and he wishes to be a full code. Smoking status: Never smoker Second hand tobacco smoke exposure: Yes Alcohol intake: never Substance use: never Gender identity (if verbalized by the patient): Male Spiritual care concerns: No Meds Home Medications and Allergies Home Medications Medication Instructions Recorded Confirmed Type blood sugar diagnostic #100 ea 10/17/20 11/27/20 Rx blood-glucose meter #1 ea 10/17/20 11/27/20 Rx lancets #100 ea 10/17/20 11/27/20 Rx cholecalciferol (vitamin D3) 1,250 50,000 unit PO WEEKLY #10 cap 11/27/20 11/27/20 Rx mcg (50,000 unit) capsule dapagliflozin 5 mg tablet 5 mg PO DAILY #30 tablet 11/27/20 11/27/20 Rx insulin glargine 100 unit/mL (3 5 unit SUBCUT QAM #15 ml 11/27/20 07
--- NOTE | 2021-02-12 16:15 | PM.IMHP ---
H&P: HPI History of Present Illness Date/Time: 02/12/21829 Chief Complaint: Left diabetic foot ulcer Narrative: 65-year-old gentleman with peripheral neuropathy and diabetes presents [facility] today for further evaluation of left diabetic foot ulcer. He is now 6 months status post debridement. He is at home Xochitl and he is nonweightbearing of the left lower extremity. He reports increased drainage from the left foot with dressing changes in the last 1 week. Review of Systems Review of Systems: All systems reviewed & are unremarkable except as noted in HPI and below Constitutional: Constitutional: Reports no additional constitutional complaints, Denies chills, Denies fever(s) and Denies headache(s) Eyes: Eyes: Reports no additional eye complaints and Denies change in vision ENT: Denies headache(s) and Denies sore throat Cardiovascular: Cardiovascular: Denies chest pain and Denies dyspnea Respiratory: Respiratory: Reports chest congestion, Reports cough and Denies dyspnea Gastrointestinal: Gastrointestinal: Denies diarrhea, Denies nausea and Denies vomiting Genitourinary: Genitourinary: Denies dysuria Musculoskeletal: Musculoskeletal: Reports deformity ( Left foot) and Reports numbness Integumentary/Breasts: Skin/Breast: Reports rash, Reports skin ulcer and Denies wounds Neurologic: Denies headache(s), Denies focal weakness and Denies numbness Psychiatric: Psychiatric: Reports no additional psychiatric complaints Endocrine: Endocrine: Reports no additional endocrine complaints Hematologic/Lymphatic: Hematologic/Lymphatic: Reports no additional hematologic/lymphatic complaints Allergic/Immunologic: Allergic/Immunologic: Reports no additional allergic/immunologic complaints [facility] Past Medical History Medical History Dehydration Diabetic foot ulcer with osteomyelitis Diabetic peripheral neuropathy Gastroesophageal reflux disease History of osteomyelitis 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 Uncontrolled diabetes mellitus Uncontrolled type 2 diabetes mellitus Surgical History Surgical History Amputation of left midfoot (~2014) As treatment of osteomyelitis, done in [place]. Status post left foot surgery Patient reports multiple debridements for osteomyelitis of the left foot prior to mid foot amputation. Family History Family History Father Renal cell carcinoma Social History Social History Social History: The patient lives in his own home in [place]. He has a daughter who lives in [place]. 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 Lifelong nonsmoker. He has not consumed alcohol for 3 years. No drug use. He designates his daughter, Cassandra Montoya, as his surrogate decision maker and he wishes to be a full code. Smoking status: Never smoker Second hand tobacco smoke exposure: Yes Alcohol intake: never Substance use: never Gender identity (if verbalized by the patient): Male Spiritual care concerns: No Meds Home Medications and Allergies Home Medications Medication Instructions Recorded Confirmed Type blood sugar diagnostic #100 ea 10/17/20 11/27/20 Rx blood-glucose meter #1 ea 10/17/20 11/27/20 Rx lancets #100 ea 10/17/20 11/27/20 Rx cholecalciferol (vitamin D3) 1,250 50,000 unit PO WEEKLY #10 cap 11/27/20 11/27/20 Rx mcg (50,000 unit) capsule dapagliflozin 5 mg tablet 5 mg PO DAILY #30 tablet 11/27/20 11/27/20 Rx insulin glargine 100 unit/mL (3 5 unit SUBCUT QAM #15 ml 11/27/20 11/27/20 Rx mL) subcutaneous pen mecobalamin (vitamin B12) 1,000 1,000 mcg SUBLINGUAL DAILY #9
--- NOTE | 2021-02-26 08:45 | PM.CNOR ---
Assessment and Plan Assessment and plan (1) Diabetic foot ulcer with osteomyelitis: Code(s): E11.621 - Type 2 diabetes mellitus with foot ulcer; E11.69 - Type 2 diabetes mellitus with other specified complication; L97.509 - Non-pressure chronic ulcer of other part of unspecified foot with unspecified severity; M86.9 - Osteomyelitis, unspecified Status: Acute Assessment and Plan: 6 months status post left foot debridement. Heel ulcer now almost completely healed. Persistent midfoot ulcer which probes to bone. Surgical and non operative treatment options reviewed. Recommend debridement of bone and attempted healing. Wound redressed with silver gel and foam. Continue daily dressing changes in the interim with offloading. Discussed nonoperative and operative treatment options with the patient. Risks and benefits of each as well as alternatives were reviewed. All of the patient's questions were answered. The risks of surgery reviewed including but not limited to: Neurovascular damage, wound complication, infection, blood clot, pulmonary embolus, stroke, myocardial infarction, and anesthetic risks up to and including . Continued pain and possible dysfunction were explained. Specific risks of the procedure including later recurrence of deformity. No guarantees were offered. If hardware used, discussed risk of failure/ breakage and possible need for removal. If complications occur, the patient understands the need for further treatment, possible further surgery. Patient verbalizes understanding and wishes to proceed. PLAN: Debridement left diabetic foot ulcer including bone. (2) Uncontrolled type 2 diabetes mellitus: Qualifiers: Glycemic state: with hyperglycemia Qualified Code(s): E11.65 - Type 2 diabetes mellitus with hyperglycemia Code(s): E11.65 - Type 2 diabetes mellitus with hyperglycemia Status: Resolved Assessment and Plan: Reviewed importance of continued diabetic control for optimal healing. (3) Neuropathy due to secondary diabetes: Code(s): E13.40 - Other specified diabetes mellitus with diabetic neuropathy, unspecified Status: Acute Assessment and Plan: Medically necessary for custom prosthetic fit and fabrication. Patient condition requires custom fitting due to bone, joint, musculoskeletal deformity. Unable to fit with [id number] brace. Patient condition will be improved with bracing. Condition likely to deteriorate without custom support Indicated for custom orthotic and shoeware (4) Peripheral arterial disease: Code(s): I73.9 - Peripheral vascular disease, unspecified Status: Acute History of Present Illness HPI Consult date: 02/26/21 Requesting physician: Sukhjinder Mclaughlin MD Chief complaint: Diabetic ulcers Left foot, wound vac dressing garcias Narrative: 65-year-old gentleman returns for evaluation of left foot to the [facility]. He has been doing daily dressing changes with silver gel and foam. Notes the midfoot ulcer continues to remain open. The heel wound has improved. No other complaints. Review of Systems Review of Systems: All systems reviewed & are unremarkable except as noted in HPI and below Constitutional: Constitutional: Reports no additional constitutional complaints, Denies chills, Denies fever(s) and Denies headache(s) Eyes: Eyes: Reports no additional eye complaints and Denies change in vision ENT: Denies headache(s) and Denies sore throat Cardiovascular: Cardiovascular: Denies chest pain and Denies dyspnea Respiratory: Respiratory: Reports chest congestion, Reports cough and Denies dyspnea Gastrointestinal: Gastrointestinal: Denies diarrhea, Denies nausea and Denies vomiting Genitourinary: Genitourinary: Denies dysuria Musculoskeletal: Musculoskeletal: Reports deformity ( Left foot) and Reports numbness Integumentary/Breasts: Skin/Breast: Reports rash, Reports skin ulc
--- NOTE | 2021-03-08 09:10 | PM.PNORT ---
Progress Note: A&P Assessment and Plan (1) Diabetic foot ulcer with osteomyelitis: Code(s): E11.621 - Type 2 diabetes mellitus with foot ulcer; E11.69 - Type 2 diabetes mellitus with other specified complication; L97.509 - Non-pressure chronic ulcer of other part of unspecified foot with unspecified severity; M86.9 - Osteomyelitis, unspecified Status: Acute Assessment and Plan: Three days status post debridement left foot including bone. Incision intact. Continue with silver foam protection for the incision and the heel ulcer with callus. Continue to wrap and change daily. Protected weight-bearing. Follow-up in 2 weeks for suture removal. Subjective Subjective Date/Time Seen: 03/08/21 09:10 Post Op day: 3 ( debridement of bone left foot) Principal diagnosis: left diabetic foot ulcer Interval history: patient presents to [facility] for follow-up left foot. Three days status post debridement including bone from the plantar aspect of the left foot. Patient has been doing dressing changes. No interim complaints. Review of Systems Review of Systems: All systems reviewed & are unremarkable except as noted in HPI and below Constitutional: Constitutional: Reports no additional constitutional complaints, Denies chills, Denies fever(s) and Denies headache(s) Eyes: Eyes: Reports no additional eye complaints and Denies change in vision ENT: Denies headache(s) and Denies sore throat Cardiovascular: Cardiovascular: Denies chest pain and Denies dyspnea Respiratory: Respiratory: Reports chest congestion, Reports cough and Denies dyspnea Gastrointestinal: Gastrointestinal: Denies diarrhea, Denies nausea and Denies vomiting Genitourinary: Genitourinary: Denies dysuria Musculoskeletal: Musculoskeletal: Reports deformity ( Left foot) and Reports numbness Integumentary/Breasts: Skin/Breast: Reports rash, Reports skin ulcer and Denies wounds Neurologic: Denies headache(s), Denies focal weakness and Denies numbness Psychiatric: Psychiatric: Reports no additional psychiatric complaints Endocrine: Endocrine: Reports no additional endocrine complaints Hematologic/Lymphatic: Hematologic/Lymphatic: Reports no additional hematologic/lymphatic complaints Allergic/Immunologic: Allergic/Immunologic: Reports no additional allergic/immunologic complaints Exam Const: General: healthy appearing; No in distress or confusion Nutritional Appearance: average body habitus Orientation/consciousness: patient oriented x3 and No confusion Limitations: no limitations HENMT: Head: normal to inspection, normocephalic and atraumatic Ears: hearing grossly normal bilaterally General nose exam: Normal external nose present Face and sinus: normal facial exam Mouth: Yes moist mucous membranes Teeth and gingiva: dentition normal Eyes: General: appearance normal, both eyes and all related structures Conjunctivae: conjunctivae normal Sclera: sclerae normal Pupils: Equal, round and reactive pupils present EOM: EOMs intact bilaterally Neck: Neck: normal visual inspection Chest: Chest palpation & inspection: normal inspection of the chest Resp: Effort & Inspection: normal respiratory effort and no audible wheezes Cardio: Jugular venous distension: no JVD Neuro: General: patient oriented x3 and No confusion Cranial nerves: Yes Equal, round and reactive pupils present Extrem: Right lower extremity: foot Left lower extremity: ankle and foot Other: Calcaneal ulcer remains closed with callus. Midfoot ulcer now approximated with suture. Serosanguineous drainage. No surrounding erythema. No malodor. Previous midfoot amputation noted. Psych: Affect: normal affect Objective Data Meds/Results Medications: Active Medications Generic Name Dose Route Start Last Admin Trade Name Freq PRN Reason Stop Dose Admin Silver 1 each 03/08/21 08:45 Silver Foam Band (Mepilex Ag 4x4) Bandage T
== END 2021-03-14 23:59 | disposition home or self-care (01) ==
LOC: ANHWOC 07:45
PROVIDERS: PCP Internal Medicine; Referring Provider Orthopaedic Surgery; Visit Provider Nurse Practitioner Family
DX: E11.621 Type 2 diabetes mellitus with foot ulcer (principal); L97.429 Non-pressure chronic ulcer of left heel and midfoot with unspecified severity
CPT/HCPCS: 11042; 99212; G0463

== ENCOUNTER 2021-04-17 09:25 | Outpatient (CLI) | payer MEDICARE, BC, OTHER, SELFPAY ==
--- NOTE | ~2021-04-17 | US_ITS ---
US retroperitoneal comp 04/17/2021 09:58 Procedure: Realtime transabdominal ultrasound of the kidneys and bladder. Indication: Chronic kidney disease Comparison: No prior studies for comparison. Findings: Renal echotexture is normal bilaterally without hydronephrosis, contour deforming mass or r enal calculus. The right kidney measures 10.4 cm and left kidney measures 10.4 cm. Bladder is not we ll distended for evaluation of wall thickening. Impression: 1: Unremarkable renal ultrasound. No stones, masses or hydronephrosis. Reviewed, dictated and finalized at location [facility] Impression: 1: Unremarkable renal ultrasound. No stones, masses or hydronephrosis.
== END 2021-04-17 09:26 | disposition home or self-care (01) ==
LOC: ANHIMG 09:26
PROVIDERS: PCP Internal Medicine; Visit Provider Nurse Practitioner
DX: N18.31 Chronic kidney disease, stage 3a (principal)
CPT/HCPCS: 76770

== ENCOUNTER 2021-06-14 07:32 | Outpatient (RCR) | payer MEDICARE, BC, OTHER, SELFPAY ==
[2021-03-15 00:06] VITALS: BMI 26.6
--- NOTE | 2021-03-22 09:04 | PM.IMHP ---
H&P: HPI History of Present Illness Date/Time: 03/22/21 09:04 Chief Complaint: L DFU Narrative: Patient is 2 weeks status post bone removal plantar aspect of the left foot in the outpatient orthopedic clinic. He denies fever, chills, night sweats, nausea, vomiting or diarrhea. No new concerns today. Sutures have been in place since date of bedside debridement. Review of Systems Review of Systems: All systems reviewed & are unremarkable except as noted in HPI and below Constitutional: Constitutional: Reports no additional constitutional complaints, Denies chills, Denies fever(s) and Denies headache(s) Eyes: Eyes: Reports no additional eye complaints and Denies change in vision ENT: Denies headache(s) and Denies sore throat Cardiovascular: Cardiovascular: Denies chest pain and Denies dyspnea Respiratory: Respiratory: Reports chest congestion, Reports cough and Denies dyspnea Gastrointestinal: Gastrointestinal: Denies diarrhea, Denies nausea and Denies vomiting Genitourinary: Genitourinary: Denies dysuria Musculoskeletal: Musculoskeletal: Reports deformity ( Left foot) and Reports numbness Integumentary/Breasts: Skin/Breast: Reports rash, Reports skin ulcer and Denies wounds Neurologic: Denies headache(s), Denies focal weakness and Denies numbness Psychiatric: Psychiatric: Reports no additional psychiatric complaints Endocrine: Endocrine: Reports no additional endocrine complaints Hematologic/Lymphatic: Hematologic/Lymphatic: Reports no additional hematologic/lymphatic complaints Allergic/Immunologic: Allergic/Immunologic: Reports no additional allergic/immunologic complaints [facility] Past Medical History Medical History Dehydration Diabetic foot ulcer with osteomyelitis Diabetic peripheral neuropathy Gastroesophageal reflux disease History of osteomyelitis 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 Uncontrolled diabetes mellitus Uncontrolled type 2 diabetes mellitus Surgical History Surgical History Amputation of left midfoot (~2014) As treatment of osteomyelitis, done in [place]. Status post left foot surgery Patient reports multiple debridements for osteomyelitis of the left foot prior to mid foot amputation. Family History Family History Father Renal cell carcinoma Social History Social History Social History: The patient lives in his own home in [place]. He has a daughter who lives in [place]. 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 Lifelong nonsmoker. He has not consumed alcohol for 3 years. No drug use. He designates his daughter, Cassandra Montoya, as his surrogate decision maker and he wishes to be a full code. Second hand tobacco smoke exposure: Yes Alcohol intake: never Substance use: never Gender identity (if verbalized by the patient): Male Spiritual care concerns: No Meds Home Medications and Allergies Home Medications Medication Instructions Recorded Confirmed Type blood sugar diagnostic #100 ea 10/17/20 03/05/21 Rx blood-glucose meter #1 ea 10/17/20 03/05/21 Rx lancets #100 ea 10/17/20 03/05/21 Rx cholecalciferol (vitamin D3) 1,250 50,000 unit PO WEEKLY #10 cap 11/27/20 03/05/21 Rx mcg (50,000 unit) capsule dapagliflozin 5 mg tablet 5 mg PO DAILY #30 tablet 11/27/20 03/05/21 Rx insulin glargine 100 unit/mL (3 5 unit SUBCUT QAM #15 ml 11/27/20 03/05/21 Rx mL) subcutaneous pen mecobalamin (vitamin B12) 1,000 1,000 mcg SUBLINGUAL DAILY #90 11/27/20 03/05/21 Rx mcg disintegrating tablet tablet,sublingual rosuvastatin 5 mg tablet 5 mg PO DAILY #90 tablet 11/27/20
--- NOTE | 2021-04-05 08:43 | PM.IMHP ---
H&P: HPI History of Present Illness Date/Time: 04/05/21 08:43 Chief Complaint: Left DFU Narrative: Patient is 4 weeks status post bone removal plantar aspect of the left foot in the outpatient orthopedic clinic. He denies fever, chills, night sweats, nausea, vomiting or diarrhea. No new concerns today. Review of Systems Review of Systems: All systems reviewed & are unremarkable except as noted in HPI and below Constitutional: Constitutional: Reports no additional constitutional complaints, Denies chills, Denies fever(s) and Denies headache(s) Eyes: Eyes: Reports no additional eye complaints and Denies change in vision ENT: Denies headache(s) and Denies sore throat Cardiovascular: Cardiovascular: Denies chest pain and Denies dyspnea Respiratory: Respiratory: Reports chest congestion, Reports cough and Denies dyspnea Gastrointestinal: Gastrointestinal: Denies diarrhea, Denies nausea and Denies vomiting Genitourinary: Genitourinary: Denies dysuria Musculoskeletal: Musculoskeletal: Reports deformity ( Left foot) and Reports numbness Integumentary/Breasts: Skin/Breast: Reports rash, Reports skin ulcer and Denies wounds Neurologic: Denies headache(s), Denies focal weakness and Denies numbness Psychiatric: Psychiatric: Reports no additional psychiatric complaints Endocrine: Endocrine: Reports no additional endocrine complaints Hematologic/Lymphatic: Hematologic/Lymphatic: Reports no additional hematologic/lymphatic complaints Allergic/Immunologic: Allergic/Immunologic: Reports no additional allergic/immunologic complaints [facility] Past Medical History Medical History Dehydration Diabetic foot ulcer with osteomyelitis Diabetic peripheral neuropathy Gastroesophageal reflux disease History of osteomyelitis 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 Uncontrolled diabetes mellitus Uncontrolled type 2 diabetes mellitus Surgical History Surgical History Amputation of left midfoot (~2014) As treatment of osteomyelitis, done in [place]. Status post left foot surgery Patient reports multiple debridements for osteomyelitis of the left foot prior to mid foot amputation. Family History Family History Father Renal cell carcinoma Social History Social History Social History: The patient lives in his own home in [place]. He has a daughter who lives in [place]. 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 Lifelong nonsmoker. He has not consumed alcohol for 3 years. No drug use. He designates his daughter, Cassandar Montoya, as his surrogate decision maker and he wishes to be a full code. Smoking status: Never smoker Second hand tobacco smoke exposure: Yes Alcohol intake: never Substance use: never Substance use type: does not use Gender identity (if verbalized by the patient): Male Spiritual care concerns: No Meds Home Medications and Allergies Home Medications Medication Instructions Recorded Confirmed Type blood sugar diagnostic #100 ea 10/17/20 04/02/21 Rx blood-glucose meter #1 ea 10/17/20 04/02/21 Rx lancets #100 ea 10/17/20 04/02/21 Rx mecobalamin (vitamin B12) 1,000 1,000 mcg SUBLINGUAL DAILY #90 11/27/20 04/02/21 Rx mcg disintegrating tablet tablet,sublingual rosuvastatin 5 mg tablet 5 mg PO DAILY #90 tablet 11/27/20 04/02/21 Rx dapagliflozin 5 mg tablet 5 mg PO DAILY #90 tablet 04/02/21 04/02/21 Rx lisinopril 10 mg tablet 10 mg PO DAILY #30 tablet 04/02/21 04/02/21 Rx Allergies Allergy/AdvReac Type Severity Reaction Status Date / Time metoclopramide [From Reglan] Allergy Unknown Verified
--- NOTE | 2021-04-26 08:41 | PM.IMHP ---
H&P: HPI History of Present Illness Date/Time: 04/26/21 08:41 Chief Complaint: Left diabetic foot ulcer Narrative: 66-year-old returns to the [facility] for follow-up left diabetic foot ulcer with previous amputation. Using Sun and silver gel at home. No interim complaints. Has not been contacted for custom shoes and prosthesis. Review of Systems Review of Systems: All systems reviewed & are unremarkable except as noted in HPI and below Constitutional: Constitutional: Reports no additional constitutional complaints, Denies chills, Denies fever(s) and Denies headache(s) Eyes: Eyes: Reports no additional eye complaints and Denies change in vision ENT: Denies headache(s) and Denies sore throat Cardiovascular: Cardiovascular: Denies chest pain and Denies dyspnea Respiratory: Respiratory: Reports chest congestion, Reports cough and Denies dyspnea Gastrointestinal: Gastrointestinal: Denies diarrhea, Denies nausea and Denies vomiting Genitourinary: Genitourinary: Denies dysuria Musculoskeletal: Musculoskeletal: Reports deformity ( Left foot) and Reports numbness Integumentary/Breasts: Skin/Breast: Reports rash, Reports skin ulcer and Denies wounds Neurologic: Denies headache(s), Denies focal weakness and Denies numbness Psychiatric: Psychiatric: Reports no additional psychiatric complaints Endocrine: Endocrine: Reports no additional endocrine complaints Hematologic/Lymphatic: Hematologic/Lymphatic: Reports no additional hematologic/lymphatic complaints Allergic/Immunologic: Allergic/Immunologic: Reports no additional allergic/immunologic complaints [facility] Past Medical History Medical History Dehydration Diabetic foot ulcer with osteomyelitis Diabetic peripheral neuropathy Gastroesophageal reflux disease History of osteomyelitis 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 Uncontrolled diabetes mellitus Uncontrolled type 2 diabetes mellitus Surgical History Surgical History Amputation of left midfoot (~2014) As treatment of osteomyelitis, done in [place]. Status post left foot surgery Patient reports multiple debridements for osteomyelitis of the left foot prior to mid foot amputation. Family History Family History Father Renal cell carcinoma Social History Social History Social History: The patient lives in his own home in [place]. He has a daughter who lives in [place]. 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 Lifelong nonsmoker. He has not consumed alcohol for 3 years. No drug use. He designates his daughter, Cassandra Montoya, as his surrogate decision maker and he wishes to be a full code. Smoking status: Never smoker Second hand tobacco smoke exposure: Yes Alcohol intake: never Substance use: never Substance use type: does not use Gender identity (if verbalized by the patient): Male Spiritual care concerns: No Meds Home Medications and Allergies Home Medications Medication Instructions Recorded Confirmed Type blood sugar diagnostic #100 ea 10/17/20 04/02/21 Rx blood-glucose meter #1 ea 10/17/20 04/02/21 Rx lancets #100 ea 10/17/20 04/02/21 Rx mecobalamin (vitamin B12) 1,000 1,000 mcg SUBLINGUAL DAILY #90 11/27/20 04/02/21 Rx mcg disintegrating tablet tablet,sublingual rosuvastatin 5 mg tablet 5 mg PO DAILY #90 tablet 11/27/20 04/02/21 Rx dapagliflozin 5 mg tablet 5 mg PO DAILY #90 tablet 04/02/21 04/02/21 Rx lisinopril 10 mg tablet 10 mg PO DAILY #30 tablet 04/02/21 04/02/21 Rx Allergies Allergy/AdvReac Type Severity Reaction Status
--- NOTE | 2021-05-24 08:28 | PM.IMHP ---
H&P: HPI History of Present Illness Date/Time: 05/24/21 08:28 Chief Complaint: Left diabetic foot ulcer status post amputation Narrative: 66-year-old returns to the [facility] for follow-up left diabetic foot ulcer with previous amputation. Using Sun and silver gel at home. No interim complaints. Has been contacted for custom shoes and prosthesis. Review of Systems Review of Systems: All systems reviewed & are unremarkable except as noted in HPI and below Constitutional: Constitutional: Reports no additional constitutional complaints, Denies chills, Denies fever(s) and Denies headache(s) Eyes: Eyes: Reports no additional eye complaints and Denies change in vision ENT: Denies headache(s) and Denies sore throat Cardiovascular: Cardiovascular: Denies chest pain and Denies dyspnea Respiratory: Respiratory: Reports chest congestion, Reports cough and Denies dyspnea Gastrointestinal: Gastrointestinal: Denies diarrhea, Denies nausea and Denies vomiting Genitourinary: Genitourinary: Denies dysuria Musculoskeletal: Musculoskeletal: Reports deformity ( Left foot) and Reports numbness Integumentary/Breasts: Skin/Breast: Reports rash, Reports skin ulcer and Denies wounds Neurologic: Denies headache(s), Denies focal weakness and Denies numbness Psychiatric: Psychiatric: Reports no additional psychiatric complaints Endocrine: Endocrine: Reports no additional endocrine complaints Hematologic/Lymphatic: Hematologic/Lymphatic: Reports no additional hematologic/lymphatic complaints Allergic/Immunologic: Allergic/Immunologic: Reports no additional allergic/immunologic complaints [facility] Past Medical History Medical History (Updated 05/24/21 @ 08:37 by Vini Ponce MD) Dehydration Diabetic foot ulcer with osteomyelitis Diabetic peripheral neuropathy Edema of lower extremity due to peripheral venous insufficiency Gastroesophageal reflux disease History of osteomyelitis 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 Uncontrolled diabetes mellitus Uncontrolled type 2 diabetes mellitus Surgical History Surgical History Amputation of left midfoot (~2014) As treatment of osteomyelitis, done in [place]. Status post left foot surgery Patient reports multiple debridements for osteomyelitis of the left foot prior to mid foot amputation. Family History Family History Father Renal cell carcinoma Social History Social History Social History: The patient lives in his own home in [place]. He has a daughter who lives in [place]. 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 Lifelong nonsmoker. He has not consumed alcohol for 3 years. No drug use. He designates his daughter, Cassandra Montoya, as his surrogate decision maker and he wishes to be a full code. Smoking status: Never smoker Second hand tobacco smoke exposure: Yes Alcohol intake: never Substance use: never Substance use type: does not use Gender identity (if verbalized by the patient): Male Spiritual care concerns: No Meds Home Medications and Allergies Home Medications Medication Instructions Recorded Confirmed Type blood sugar diagnostic #100 ea 10/17/20 04/02/21 Rx blood-glucose meter #1 ea 10/17/20 04/02/21 Rx lancets #100 ea 10/17/20 04/02/21 Rx mecobalamin (vitamin B12) 1,000 1,000 mcg SUBLINGUAL DAILY #90 11/27/20 04/02/21 Rx mcg disintegrating tablet tablet,sublingual rosuvastatin 5 mg tablet 5 mg PO DAILY #90 tablet 11/27/20 04/02/21 Rx lisinopril 10 mg tablet 10 mg PO DAILY #30 tablet 04/02/21 04/02/21 Rx Allergies Allergy/AdvReac Type Severity Reactio
--- NOTE | 2021-05-31 10:10 | PM.IMHP ---
H&P: HPI History of Present Illness Date/Time: 05/31/21 10:10 Chief Complaint: Left diabetic foot ulcer status post amputation. Narrative: 66-year-old returns to the [facility] for follow-up left diabetic foot ulcer with previous amputation. Using Sun and silver gel at home. No interim complaints. Has been contacted for custom shoes and prosthesis and is currently awaiting fabrication.. He was prescribed Lasix last week by Dr. Ponce however he did not take or bulk picker the Lasix. He does still have edema of the left lower extremity. Reiterated importance of compliance of medication. Review of Systems Review of Systems: All systems reviewed & are unremarkable except as noted in HPI and below Constitutional: Constitutional: Reports no additional constitutional complaints, Denies chills, Denies fever(s) and Denies headache(s) Eyes: Eyes: Reports no additional eye complaints and Denies change in vision ENT: Denies headache(s) and Denies sore throat Cardiovascular: Cardiovascular: Denies chest pain and Denies dyspnea Respiratory: Respiratory: Reports chest congestion, Reports cough and Denies dyspnea Gastrointestinal: Gastrointestinal: Denies diarrhea, Denies nausea and Denies vomiting Genitourinary: Genitourinary: Denies dysuria Musculoskeletal: Musculoskeletal: Reports deformity ( Left foot) and Reports numbness Integumentary/Breasts: Skin/Breast: Reports rash, Reports skin ulcer and Denies wounds Neurologic: Denies headache(s), Denies focal weakness and Denies numbness Psychiatric: Psychiatric: Reports no additional psychiatric complaints Endocrine: Endocrine: Reports no additional endocrine complaints Hematologic/Lymphatic: Hematologic/Lymphatic: Reports no additional hematologic/lymphatic complaints Allergic/Immunologic: Allergic/Immunologic: Reports no additional allergic/immunologic complaints [facility] Past Medical History Medical History Dehydration Diabetic foot ulcer with osteomyelitis Diabetic peripheral neuropathy Edema of lower extremity due to peripheral venous insufficiency Gastroesophageal reflux disease History of osteomyelitis 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 Uncontrolled diabetes mellitus Uncontrolled type 2 diabetes mellitus Surgical History Surgical History Amputation of left midfoot (~2014) As treatment of osteomyelitis, done in [place]. Status post left foot surgery Patient reports multiple debridements for osteomyelitis of the left foot prior to mid foot amputation. Family History Family History Father Renal cell carcinoma Social History Social History Social History: The patient lives in his own home in [place]. He has a daughter who lives in [place]. 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 Lifelong nonsmoker. He has not consumed alcohol for 3 years. No drug use. He designates his daughter, Cassandra Montoya, as his surrogate decision maker and he wishes to be a full code. Smoking status: Never smoker Second hand tobacco smoke exposure: Yes Alcohol intake: never Substance use: never Substance use type: does not use Gender identity (if verbalized by the patient): Male Spiritual care concerns: No Meds Home Medications and Allergies Home Medications Medication Instructions Recorded Confirmed Type blood sugar diagnostic #100 ea 10/17/20 04/02/21 Rx blood-glucose meter #1 ea 10/17/20 04/02/21 Rx lancets #100 ea 10/17/20 04/02/21 Rx mecobalamin (vitamin B12) 1,000 1,000 mcg SUBLINGUAL DAILY #90 11/27/20 04/02/21 Rx mcg d
--- NOTE | 2021-06-14 10:57 | PM.IMHP ---
H&P: HPI History of Present Illness Date/Time: 06/14/21 10:57 Chief Complaint: Left DFU Narrative: 66-year-old returns to the [facility] for follow-up left diabetic foot ulcer with previous amputation. Using Sun and silver gel at home. 2 weeks s/p Amnioexcel graft application. No new concerns. Has been contacted for custom shoes and prosthesis and is currently awaiting fabrication. Review of Systems Review of Systems: All systems reviewed & are unremarkable except as noted in HPI and below Constitutional: Constitutional: Reports no additional constitutional complaints, Denies chills, Denies fever(s) and Denies headache(s) Eyes: Eyes: Reports no additional eye complaints and Denies change in vision ENT: Denies headache(s) and Denies sore throat Cardiovascular: Cardiovascular: Denies chest pain and Denies dyspnea Respiratory: Respiratory: Reports chest congestion, Reports cough and Denies dyspnea Gastrointestinal: Gastrointestinal: Denies diarrhea, Denies nausea and Denies vomiting Genitourinary: Genitourinary: Denies dysuria Musculoskeletal: Musculoskeletal: Reports deformity ( Left foot) and Reports numbness Integumentary/Breasts: Skin/Breast: Reports rash, Reports skin ulcer and Denies wounds Neurologic: Denies headache(s), Denies focal weakness and Denies numbness Psychiatric: Psychiatric: Reports no additional psychiatric complaints Endocrine: Endocrine: Reports no additional endocrine complaints Hematologic/Lymphatic: Hematologic/Lymphatic: Reports no additional hematologic/lymphatic complaints Allergic/Immunologic: Allergic/Immunologic: Reports no additional allergic/immunologic complaints [facility] Past Medical History Medical History Dehydration Diabetic foot ulcer with osteomyelitis Diabetic peripheral neuropathy Edema of lower extremity due to peripheral venous insufficiency Gastroesophageal reflux disease History of osteomyelitis 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 Uncontrolled diabetes mellitus Uncontrolled type 2 diabetes mellitus Surgical History Surgical History Amputation of left midfoot (~2014) As treatment of osteomyelitis, done in [place]. Status post left foot surgery Patient reports multiple debridements for osteomyelitis of the left foot prior to mid foot amputation. Family History Family History Father Renal cell carcinoma Social History Social History Social History: The patient lives in his own home in [place]. He has a daughter who lives in [place]. 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 Lifelong nonsmoker. He has not consumed alcohol for 3 years. No drug use. He designates his daughter, Cassandra Montoya, as his surrogate decision maker and he wishes to be a full code. Smoking status: Never smoker Second hand tobacco smoke exposure: Yes Alcohol intake: never Substance use: never Substance use type: does not use Gender identity (if verbalized by the patient): Male Spiritual care concerns: No Meds Home Medications and Allergies Home Medications Medication Instructions Recorded Confirmed Type blood sugar diagnostic #100 ea 10/17/20 04/02/21 Rx blood-glucose meter #1 ea 10/17/20 04/02/21 Rx lancets #100 ea 10/17/20 04/02/21 Rx mecobalamin (vitamin B12) 1,000 1,000 mcg SUBLINGUAL DAILY #90 11/27/20 04/02/21 Rx mcg disintegrating tablet tablet,sublingual rosuvastatin 5 mg tablet 5 mg PO DAILY #90 tablet 11/27/20 04/02/21 Rx lisinopril 10 mg tablet 10 mg PO DAILY #30 tablet 04/02/21 04/02/21 Rx furosemide 40 mg table
== END 2021-06-20 23:59 | disposition home or self-care (01) ==
LOC: ANHWOC 07:32
PROVIDERS: PCP Internal Medicine; Referring Provider Orthopaedic Surgery; Visit Provider Nurse Practitioner Family
DX: Z48.01 Encounter for change or removal of surgical wound dressing (principal); E11.621 Type 2 diabetes mellitus with foot ulcer; L97.429 Non-pressure chronic ulcer of left heel and midfoot with unspecified severity
CPT/HCPCS: 11042; 15275; 99212; G0463; Q4137

== ENCOUNTER 2021-08-20 07:57 | Outpatient (RCR) | payer MEDICARE, BC, OTHER, SELFPAY ==
--- NOTE | 2021-06-28 09:50 | PM.IMHP ---
H&P: HPI History of Present Illness Date/Time: 06/28/21 08:15 Chief Complaint: Left DFU Narrative: 66-year-old returns to the [facility] for follow-up left diabetic foot ulcer with previous amputation. Using Sun and silver gel at home. 2 weeks s/p Amnioexcel graft application. No new concerns. Has been contacted for custom shoes and prosthesis and is currently awaiting fabrication. Review of Systems Review of Systems: All systems reviewed & are unremarkable except as noted in HPI and below Constitutional: Constitutional: Reports no additional constitutional complaints, Denies chills, Denies fever(s) and Denies headache(s) Eyes: Eyes: Reports no additional eye complaints and Denies change in vision ENT: Denies headache(s) and Denies sore throat Cardiovascular: Cardiovascular: Denies chest pain and Denies dyspnea Respiratory: Respiratory: Reports chest congestion, Reports cough and Denies dyspnea Gastrointestinal: Gastrointestinal: Denies diarrhea, Denies nausea and Denies vomiting Genitourinary: Genitourinary: Denies dysuria Musculoskeletal: Musculoskeletal: Reports deformity ( Left foot) and Reports numbness Integumentary/Breasts: Skin/Breast: Reports rash, Reports skin ulcer and Denies wounds Neurologic: Denies headache(s), Denies focal weakness and Denies numbness Psychiatric: Psychiatric: Reports no additional psychiatric complaints Endocrine: Endocrine: Reports no additional endocrine complaints Hematologic/Lymphatic: Hematologic/Lymphatic: Reports no additional hematologic/lymphatic complaints Allergic/Immunologic: Allergic/Immunologic: Reports no additional allergic/immunologic complaints [facility] Past Medical History Medical History Dehydration Diabetic foot ulcer with osteomyelitis Diabetic peripheral neuropathy Edema of lower extremity due to peripheral venous insufficiency Gastroesophageal reflux disease History of osteomyelitis 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 Uncontrolled diabetes mellitus Uncontrolled type 2 diabetes mellitus Surgical History Surgical History Amputation of left midfoot (~2014) As treatment of osteomyelitis, done in [place]. Status post left foot surgery Patient reports multiple debridements for osteomyelitis of the left foot prior to mid foot amputation. Family History Family History Father Renal cell carcinoma Social History Social History Social History: The patient lives in his own home in [place]. He has a daughter who lives in [place]. 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 Lifelong nonsmoker. He has not consumed alcohol for 3 years. No drug use. He designates his daughter, Cassandra Montoya, as his surrogate decision maker and he wishes to be a full code. Smoking status: Never smoker Second hand tobacco smoke exposure: Yes Alcohol intake: never Substance use: never Substance use type: does not use Gender identity (if verbalized by the patient): Male Spiritual care concerns: No Meds Home Medications and Allergies Home Medications Medication Instructions Recorded Confirmed Type blood sugar diagnostic #100 ea 10/17/20 04/02/21 Rx blood-glucose meter #1 ea 10/17/20 04/02/21 Rx lancets #100 ea 10/17/20 04/02/21 Rx mecobalamin (vitamin B12) 1,000 1,000 mcg SUBLINGUAL DAILY #90 11/27/20 04/02/21 Rx mcg disintegrating tablet tablet,sublingual rosuvastatin 5 mg tablet 5 mg PO DAILY #90 tablet 11/27/20 04/02/21 Rx lisinopril 10 mg tablet 10 mg PO DAILY #30 tablet 04/02/21 04/02/21 Rx furosemide 40 mg tabl
--- NOTE | 2021-07-12 09:46 | PM.IMHP ---
H&P: HPI History of Present Illness Date/Time: 07/12/21 09:46 Chief Complaint: Left DFU Narrative: 66-year-old returns to the [facility] for follow-up left diabetic foot ulcer with previous amputation. Using Sun and silver gel at home. 2 weeks s/p Amnioexcel graft application. No new concerns. Has been contacted for custom shoes and prosthesis and is currently awaiting fabrication. Review of Systems Review of Systems: All systems reviewed & are unremarkable except as noted in HPI and below Constitutional: Constitutional: Reports no additional constitutional complaints, Denies chills, Denies fever(s) and Denies headache(s) Eyes: Eyes: Reports no additional eye complaints and Denies change in vision ENT: Denies headache(s) and Denies sore throat Cardiovascular: Cardiovascular: Denies chest pain and Denies dyspnea Respiratory: Respiratory: Reports chest congestion, Reports cough and Denies dyspnea Gastrointestinal: Gastrointestinal: Denies diarrhea, Denies nausea and Denies vomiting Genitourinary: Genitourinary: Denies dysuria Musculoskeletal: Musculoskeletal: Reports deformity ( Left foot) and Reports numbness Integumentary/Breasts: Skin/Breast: Reports rash, Reports skin ulcer and Denies wounds Neurologic: Denies headache(s), Denies focal weakness and Denies numbness Psychiatric: Psychiatric: Reports no additional psychiatric complaints Endocrine: Endocrine: Reports no additional endocrine complaints Hematologic/Lymphatic: Hematologic/Lymphatic: Reports no additional hematologic/lymphatic complaints Allergic/Immunologic: Allergic/Immunologic: Reports no additional allergic/immunologic complaints [facility] Past Medical History Medical History Dehydration Diabetic foot ulcer with osteomyelitis Diabetic peripheral neuropathy Edema of lower extremity due to peripheral venous insufficiency Gastroesophageal reflux disease History of osteomyelitis 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 Uncontrolled diabetes mellitus Uncontrolled type 2 diabetes mellitus Surgical History Surgical History Amputation of left midfoot (~2014) As treatment of osteomyelitis, done in [place]. Status post left foot surgery Patient reports multiple debridements for osteomyelitis of the left foot prior to mid foot amputation. Family History Family History Father Renal cell carcinoma Social History Social History Social History: The patient lives in his own home in [place]. He has a daughter who lives in [place]. 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 Lifelong nonsmoker. He has not consumed alcohol for 3 years. No drug use. He designates his daughter, Cassandra Montoya, as his surrogate decision maker and he wishes to be a full code. Smoking status: Never smoker Second hand tobacco smoke exposure: Yes Alcohol intake: never Substance use: never Substance use type: does not use Gender identity (if verbalized by the patient): Male Spiritual care concerns: No Meds Home Medications and Allergies Home Medications Medication Instructions Recorded Confirmed Type blood sugar diagnostic #100 ea 10/17/20 07/02/21 Rx blood-glucose meter #1 ea 10/17/20 07/02/21 Rx lancets #100 ea 10/17/20 07/02/21 Rx mecobalamin (vitamin B12) 1,000 1,000 mcg SUBLINGUAL DAILY #90 11/27/20 07/02/21 Rx mcg disintegrating tablet tablet,sublingual furosemide 40 mg tablet 20 mg PO QAM #14 tablet 05/24/21 07/02/21 Rx insulin glargine 100 unit/mL (3 5 unit SUBCUT QAM #15 ml 07/02/21 07/02/21 Rx mL) subcutaneou
--- NOTE | 2021-07-26 08:30 | PM.IMHP ---
H&P: HPI History of Present Illness Date/Time: 07/26/21 08:30 Chief Complaint: LT DFU Narrative: 66-year-old returns to the [facility] for follow-up left diabetic foot ulcer with previous amputation. Using Sun and silver gel at home. 2 weeks s/p Amnioexcel graft application. No new concerns. Custom shoes and prosthesis in fabrication. Scheduled for pickup August. Review of Systems Review of Systems: All systems reviewed & are unremarkable except as noted in HPI and below Constitutional: Constitutional: Reports no additional constitutional complaints, Denies chills, Denies fever(s) and Denies headache(s) Eyes: Eyes: Reports no additional eye complaints and Denies change in vision ENT: Denies headache(s) and Denies sore throat Cardiovascular: Cardiovascular: Denies chest pain and Denies dyspnea Respiratory: Respiratory: Reports chest congestion, Reports cough and Denies dyspnea Gastrointestinal: Gastrointestinal: Denies diarrhea, Denies nausea and Denies vomiting Genitourinary: Genitourinary: Denies dysuria Musculoskeletal: Musculoskeletal: Reports deformity ( Left foot) and Reports numbness Integumentary/Breasts: Skin/Breast: Reports rash, Reports skin ulcer and Denies wounds Neurologic: Denies headache(s), Denies focal weakness and Denies numbness Psychiatric: Psychiatric: Reports no additional psychiatric complaints Endocrine: Endocrine: Reports no additional endocrine complaints Hematologic/Lymphatic: Hematologic/Lymphatic: Reports no additional hematologic/lymphatic complaints Allergic/Immunologic: Allergic/Immunologic: Reports no additional allergic/immunologic complaints [facility] Past Medical History Medical History Dehydration Diabetic foot ulcer with osteomyelitis Diabetic peripheral neuropathy Edema of lower extremity due to peripheral venous insufficiency Gastroesophageal reflux disease History of osteomyelitis 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 Uncontrolled diabetes mellitus Uncontrolled type 2 diabetes mellitus Surgical History Surgical History Amputation of left midfoot (~2014) As treatment of osteomyelitis, done in [place]. Status post left foot surgery Patient reports multiple debridements for osteomyelitis of the left foot prior to mid foot amputation. Family History Family History Father Renal cell carcinoma Social History Social History Social History: The patient lives in his own home in [place]. He has a daughter who lives in [place]. 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 Lifelong nonsmoker. He has not consumed alcohol for 3 years. No drug use. He designates his daughter, Cassandra Montoya, as his surrogate decision maker and he wishes to be a full code. Smoking status: Never smoker Second hand tobacco smoke exposure: Yes Alcohol intake: never Substance use: never Substance use type: does not use Gender identity (if verbalized by the patient): Male Spiritual care concerns: No Meds Home Medications and Allergies Home Medications Medication Instructions Recorded Confirmed Type blood sugar diagnostic #100 ea 10/17/20 07/02/21 Rx blood-glucose meter #1 ea 10/17/20 07/02/21 Rx lancets #100 ea 10/17/20 07/02/21 Rx mecobalamin (vitamin B12) 1,000 1,000 mcg SUBLINGUAL DAILY #90 11/27/20 07/02/21 Rx mcg disintegrating tablet tablet,sublingual furosemide 40 mg tablet 20 mg PO QAM #14 tablet 05/24/21 07/02/21 Rx insulin glargine 100 unit/mL (3 5 unit SUBCUT QAM #15 ml 07/02/21 07/02/21 Rx mL) subcutaneous pen lis
--- NOTE | 2021-08-06 08:46 | PM.IMHP ---
H&P: HPI History of Present Illness Date/Time: 08/06/21 08:46 Chief Complaint: Left diabetic foot ulcer Narrative: 66-year-old returns to the [facility] for follow-up left diabetic foot ulcer with previous amputation. Using Sun and silver gel at home. 2 weeks s/p Amnioexcel graft application. No new concerns. Custom shoes and prosthesis in fabrication. 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 Review of Systems Review of Systems: All systems reviewed & are unremarkable except as noted in HPI and below Constitutional: Constitutional: Reports no additional constitutional complaints, Denies chills, Denies fever(s) and Denies headache(s) Eyes: Eyes: Reports no additional eye complaints and Denies change in vision ENT: Denies headache(s) and Denies sore throat Cardiovascular: Cardiovascular: Denies chest pain and Denies dyspnea Respiratory: Respiratory: Reports chest congestion, Reports cough and Denies dyspnea Gastrointestinal: Gastrointestinal: Denies diarrhea, Denies nausea and Denies vomiting Genitourinary: Genitourinary: Denies dysuria Musculoskeletal: Musculoskeletal: Reports deformity ( Left foot) and Reports numbness Integumentary/Breasts: Skin/Breast: Reports rash, Reports skin ulcer and Denies wounds Neurologic: Denies headache(s), Denies focal weakness and Denies numbness Psychiatric: Psychiatric: Reports no additional psychiatric complaints Endocrine: Endocrine: Reports no additional endocrine complaints Hematologic/Lymphatic: Hematologic/Lymphatic: Reports no additional hematologic/lymphatic complaints Allergic/Immunologic: Allergic/Immunologic: Reports no additional allergic/immunologic complaints [facility] Past Medical History Medical History Dehydration Diabetic foot ulcer with osteomyelitis Diabetic peripheral neuropathy Edema of lower extremity due to peripheral venous insufficiency Gastroesophageal reflux disease History of osteomyelitis 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 Uncontrolled diabetes mellitus Uncontrolled type 2 diabetes mellitus Surgical History Surgical History Amputation of left midfoot (~2014) As treatment of osteomyelitis, done in [place]. Status post left foot surgery Patient reports multiple debridements for osteomyelitis of the left foot prior to mid foot amputation. Family History Family History Father Renal cell carcinoma Social History Social History Social History: The patient lives in his own home in [place]. He has a daughter who lives in [place]. 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 Lifelong nonsmoker. He has not consumed alcohol for 3 years. No drug use. He designates his daughter, Cassandra Montoya, as his surrogate decision maker and he wishes to be a full code. Smoking status: Never smoker Second hand tobacco smoke exposure: Yes Alcohol intake: never Substance use: never Substance use type: does not use Gender identity (if verbalized by the patient): Male Spiritual care concerns: No Meds Home Medications and Allergies Home Medications Medication Instructions Recorded Confirmed Type blood sugar diagnostic #100 ea 10/17/20 07/02/21 Rx blood-glucose meter #1 ea 10/17/20 07/02/21 Rx lancets #100 ea 10/17/20 07/02/21 Rx mecobalamin (vitamin B12) 1,000 1,000 mcg SUBLINGUAL DAILY #90 11/27/20 07/02/21 Rx mcg disintegrating tablet tablet,sublingual furosemide 40 mg tablet 20 mg PO QAM #14 tablet 05/24/21 07/02/21 Rx insulin glargine 100 unit/mL (3 5 unit SUBCUT QAM #15 ml 07/02/21 07/02/21 Rx m
--- NOTE | 2021-08-20 09:34 | PM.IMHP ---
H&P: HPI History of Present Illness Date/Time: 08/20/21 09:34 Chief Complaint: Left diabetic foot ulcer Narrative: 66-year-old returns to the [facility] for follow-up left diabetic foot ulcer with previous amputation. Using Sun and silver gel at home. 2 weeks s/p Amnioexcel graft application. No new concerns. Custom shoes and prosthesis in fabrication. 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 Review of Systems Review of Systems: All systems reviewed & are unremarkable except as noted in HPI and below Constitutional: Constitutional: Reports no additional constitutional complaints, Denies chills, Denies fever(s) and Denies headache(s) Eyes: Eyes: Reports no additional eye complaints and Denies change in vision ENT: Denies headache(s) and Denies sore throat Cardiovascular: Cardiovascular: Denies chest pain and Denies dyspnea Respiratory: Respiratory: Reports chest congestion, Reports cough and Denies dyspnea Gastrointestinal: Gastrointestinal: Denies diarrhea, Denies nausea and Denies vomiting Genitourinary: Genitourinary: Denies dysuria Musculoskeletal: Musculoskeletal: Reports deformity ( Left foot) and Reports numbness Integumentary/Breasts: Skin/Breast: Reports rash, Reports skin ulcer and Denies wounds Neurologic: Denies headache(s), Denies focal weakness and Denies numbness Psychiatric: Psychiatric: Reports no additional psychiatric complaints Endocrine: Endocrine: Reports no additional endocrine complaints Hematologic/Lymphatic: Hematologic/Lymphatic: Reports no additional hematologic/lymphatic complaints Allergic/Immunologic: Allergic/Immunologic: Reports no additional allergic/immunologic complaints [facility] Past Medical History Medical History Dehydration Diabetic foot ulcer with osteomyelitis Diabetic peripheral neuropathy Edema of lower extremity due to peripheral venous insufficiency Gastroesophageal reflux disease History of osteomyelitis 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 Uncontrolled diabetes mellitus Uncontrolled type 2 diabetes mellitus Surgical History Surgical History Amputation of left midfoot (~2014) As treatment of osteomyelitis, done in [place]. Status post left foot surgery Patient reports multiple debridements for osteomyelitis of the left foot prior to mid foot amputation. Family History Family History Father Renal cell carcinoma Social History Social History Social History: The patient lives in his own home in [place]. He has a daughter who lives in [place]. 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 Lifelong nonsmoker. He has not consumed alcohol for 3 years. No drug use. He designates his daughter, Cassandra Montoya, as his surrogate decision maker and he wishes to be a full code. Smoking status: Never smoker Second hand tobacco smoke exposure: Yes Alcohol intake: never Substance use: never Substance use type: does not use Gender identity (if verbalized by the patient): Male Spiritual care concerns: No Meds Home Medications and Allergies Home Medications Medication Instructions Recorded Confirmed Type blood sugar diagnostic #100 ea 10/17/20 07/02/21 Rx blood-glucose meter #1 ea 10/17/20 07/02/21 Rx lancets #100 ea 10/17/20 07/02/21 Rx mecobalamin (vitamin B12) 1,000 1,000 mcg SUBLINGUAL DAILY #90 11/27/20 07/02/21 Rx mcg disintegrating tablet tablet,sublingual furosemide 40 mg tablet 20 mg PO QAM #14 tablet 05/24/21 07/02/21 Rx insulin glargine 100 unit/mL (3 5 unit SUBCUT QAM #15 ml 07/02/21 07/02/21 Rx mL) subcutaneous
== END 2021-09-26 23:59 | disposition home or self-care (01) ==
LOC: ANHWOC 07:57
PROVIDERS: PCP Internal Medicine; Referring Provider Orthopaedic Surgery; Visit Provider Nurse Practitioner Family
DX: E11.621 Type 2 diabetes mellitus with foot ulcer (principal); E11.69 Type 2 diabetes mellitus with other specified complication; L97.429 Non-pressure chronic ulcer of left heel and midfoot with unspecified severity; L97.509 Non-pressure chronic ulcer of other part of unspecified foot with unspecified severity; M86.9 Osteomyelitis, unspecified
CPT/HCPCS: 15275; 99212; G0463; Q4137

== ENCOUNTER 2021-12-24 07:28 | Outpatient (RCR) | payer MEDICARE, BC, OTHER, SELFPAY ==
--- NOTE | 2021-10-04 11:23 | PM.IMHP ---
H&P: HPI History of Present Illness Date/Time: 10/04/21 11:23 Chief Complaint: New open wound left plantar stump Narrative: 66-year-old male returns to the wound clinic today due to complaints of a new open wound on the plantar aspect of the left foot status post initiation of custom orthotics and double upright brace. He denies fever, chills, night sweats, nausea, vomiting or diarrhea. He has used his new inserts for 2 weeks. He has not had pressure on the left stump prior to this time as he has been nonweightbearing with crutches. Review of Systems Review of Systems: All systems reviewed & are unremarkable except as noted in HPI and below Constitutional: Constitutional: Reports no additional constitutional complaints, Denies chills, Denies fever(s) and Denies headache(s) Eyes: Eyes: Reports no additional eye complaints and Denies change in vision ENT: Denies headache(s) and Denies sore throat Cardiovascular: Cardiovascular: Denies chest pain and Denies dyspnea Respiratory: Respiratory: Reports chest congestion, Reports cough and Denies dyspnea Gastrointestinal: Gastrointestinal: Denies diarrhea, Denies nausea and Denies vomiting Genitourinary: Genitourinary: Denies dysuria Musculoskeletal: Musculoskeletal: Reports deformity ( Left foot) and Reports numbness Integumentary/Breasts: Skin/Breast: Reports rash, Reports skin ulcer and Denies wounds Neurologic: Denies headache(s), Denies focal weakness and Denies numbness Psychiatric: Psychiatric: Reports no additional psychiatric complaints Endocrine: Endocrine: Reports no additional endocrine complaints Hematologic/Lymphatic: Hematologic/Lymphatic: Reports no additional hematologic/lymphatic complaints Allergic/Immunologic: Allergic/Immunologic: Reports no additional allergic/immunologic complaints [facility] Past Medical History Medical History Dehydration Diabetic foot ulcer with osteomyelitis Diabetic peripheral neuropathy Edema of lower extremity due to peripheral venous insufficiency Gastroesophageal reflux disease History of osteomyelitis 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 Ulcer of left foot due to type 2 diabetes mellitus Ulcer of right foot due to type 2 diabetes mellitus Pt. does not have Rt DFU Uncontrolled diabetes mellitus Uncontrolled type 2 diabetes mellitus Surgical History Surgical History (Updated 10/04/21 @ 13:46 by SELAM Perez) Amputation of left midfoot (~2014) As treatment of osteomyelitis, done in [place]. History of transmetatarsal amputation of foot Status post left foot surgery Patient reports multiple debridements for osteomyelitis of the left foot prior to mid foot amputation. Family History Family History Father Renal cell carcinoma Social History Social History Social History: The patient lives in his own home in [place]. He has a daughter who lives in [place]. 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 Lifelong nonsmoker. He has not consumed alcohol for 3 years. No drug use. He designates his daughter, Cassandra Montoya, as his surrogate decision maker and he wishes to be a full code. Smoking status: Never smoker Second hand tobacco smoke exposure: Yes Alcohol intake: never Substance use: never Substance use type: does not use Gender identity (if verbalized by the patient): Male Spiritual care concerns: No Meds Home Medications and Allergies Home Medications Medication Instructions Recorded Confirmed Type blood sugar diagnostic #100 ea 10/17/20 07/02/21 Rx blood-glucose meter #1 ea 10/17/20 07/02/21 Rx lancets #100 ea 10/17/20 07/02/21 Rx mec
--- NOTE | 2021-10-11 08:59 | PM.IMHP ---
H&P: HPI History of Present Illness Date/Time: 10/11/21 08:59 Chief Complaint: Recurrent open wound left plantar stump Narrative: 66-year-old male returns to the wound clinic today for reevaluation of recurrent wound on the plantar aspect of the left foot status post initiation of custom orthotics and double upright brace. He denies fever, chills, night sweats, nausea, vomiting or diarrhea. He has had minimal weight bearing in the last 1 week with daily dressing changes. Still awaiting new shoe to be fabricated. Review of Systems Review of Systems: All systems reviewed & are unremarkable except as noted in HPI and below Constitutional: Constitutional: Reports no additional constitutional complaints, Denies chills, Denies fever(s) and Denies headache(s) Eyes: Eyes: Reports no additional eye complaints and Denies change in vision ENT: Denies headache(s) and Denies sore throat Cardiovascular: Cardiovascular: Denies chest pain and Denies dyspnea Respiratory: Respiratory: Reports chest congestion, Reports cough and Denies dyspnea Gastrointestinal: Gastrointestinal: Denies diarrhea, Denies nausea and Denies vomiting Genitourinary: Genitourinary: Denies dysuria Musculoskeletal: Musculoskeletal: Reports deformity ( Left foot) and Reports numbness Integumentary/Breasts: Skin/Breast: Reports rash, Reports skin ulcer and Denies wounds Neurologic: Denies headache(s), Denies focal weakness and Denies numbness Psychiatric: Psychiatric: Reports no additional psychiatric complaints Endocrine: Endocrine: Reports no additional endocrine complaints Hematologic/Lymphatic: Hematologic/Lymphatic: Reports no additional hematologic/lymphatic complaints Allergic/Immunologic: Allergic/Immunologic: Reports no additional allergic/immunologic complaints [facility] Past Medical History Medical History Dehydration Diabetic foot ulcer with osteomyelitis Diabetic peripheral neuropathy Edema of lower extremity due to peripheral venous insufficiency Gastroesophageal reflux disease History of osteomyelitis 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 Ulcer of left foot due to type 2 diabetes mellitus Ulcer of right foot due to type 2 diabetes mellitus Pt. does not have Rt DFU Uncontrolled diabetes mellitus Uncontrolled type 2 diabetes mellitus Surgical History Surgical History Amputation of left midfoot (~2014) As treatment of osteomyelitis, done in [place]. History of transmetatarsal amputation of foot Status post left foot surgery Patient reports multiple debridements for osteomyelitis of the left foot prior to mid foot amputation. Family History Family History Father Renal cell carcinoma Social History Social History Social History: The patient lives in his own home in [place]. He has a daughter who lives in [place]. 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 Lifelong nonsmoker. He has not consumed alcohol for 3 years. No drug use. He designates his daughter, Cassandra Montoya, as his surrogate decision maker and he wishes to be a full code. Smoking status: Never smoker Second hand tobacco smoke exposure: Yes Alcohol intake: never Substance use: never Substance use type: does not use Gender identity (if verbalized by the patient): Male Spiritual care concerns: No Meds Home Medications and Allergies Home Medications Medication Instructions Recorded Confirmed Type blood sugar diagnostic (Blood #100 ea 10/17/20 07/02/21 Rx Glucose Test) blood-glucose meter #1 ea 10/17/20 07/02/21 Rx lancets #100 ea 10/17/20 07/02/21
--- NOTE | 2021-10-18 08:46 | PM.IMHP ---
H&P: HPI History of Present Illness Date/Time: 10/18/21 08:46 Chief Complaint: Recurrent open wound left plantar stump Narrative: 66-year-old male returns to the wound clinic today for reevaluation of recurrent wound on the plantar aspect of the left foot status post initiation of custom orthotics and double upright brace. He denies fever, chills, night sweats, nausea, vomiting or diarrhea. He has had minimal weight bearing in the last 1 week with daily dressing changes. Still awaiting new shoe to be fabricated. Review of Systems Review of Systems: All systems reviewed & are unremarkable except as noted in HPI and below Constitutional: Constitutional: Reports no additional constitutional complaints, Denies chills, Denies fever(s) and Denies headache(s) Eyes: Eyes: Reports no additional eye complaints and Denies change in vision ENT: Denies headache(s) and Denies sore throat Cardiovascular: Cardiovascular: Denies chest pain and Denies dyspnea Respiratory: Respiratory: Reports chest congestion, Reports cough and Denies dyspnea Gastrointestinal: Gastrointestinal: Denies diarrhea, Denies nausea and Denies vomiting Genitourinary: Genitourinary: Denies dysuria Musculoskeletal: Musculoskeletal: Reports deformity ( Left foot) and Reports numbness Integumentary/Breasts: Skin/Breast: Reports rash, Reports skin ulcer and Denies wounds Neurologic: Denies headache(s), Denies focal weakness and Denies numbness Psychiatric: Psychiatric: Reports no additional psychiatric complaints Endocrine: Endocrine: Reports no additional endocrine complaints Hematologic/Lymphatic: Hematologic/Lymphatic: Reports no additional hematologic/lymphatic complaints Allergic/Immunologic: Allergic/Immunologic: Reports no additional allergic/immunologic complaints [facility] Past Medical History Medical History Dehydration Diabetic foot ulcer with osteomyelitis Diabetic peripheral neuropathy Edema of lower extremity due to peripheral venous insufficiency Gastroesophageal reflux disease History of osteomyelitis 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 Ulcer of left foot due to type 2 diabetes mellitus Ulcer of right foot due to type 2 diabetes mellitus Pt. does not have Rt DFU Uncontrolled diabetes mellitus Uncontrolled type 2 diabetes mellitus Surgical History Surgical History Amputation of left midfoot (~2014) As treatment of osteomyelitis, done in [place]. History of transmetatarsal amputation of foot Status post left foot surgery Patient reports multiple debridements for osteomyelitis of the left foot prior to mid foot amputation. Family History Family History Father Renal cell carcinoma Social History Social History Social History: The patient lives in his own home in [place]. He has a daughter who lives in [place]. 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 Lifelong nonsmoker. He has not consumed alcohol for 3 years. No drug use. He designates his daughter, Cassandra Montoya, as his surrogate decision maker and he wishes to be a full code. Smoking status: Never smoker Second hand tobacco smoke exposure: Yes Alcohol intake: never Substance use: never Substance use type: does not use Gender identity (if verbalized by the patient): Male Spiritual care concerns: No Meds Home Medications and Allergies Home Medications Medication Instructions Recorded Confirmed Type blood sugar diagnostic (Blood #100 ea 10/17/20 07/02/21 Rx Glucose Test strips) blood-glucose meter #1 ea 10/17/20 07/02/21 Rx lancets #100 ea 10/17/20 02
--- NOTE | 2021-10-25 08:37 | PM.IMHP ---
H&P: HPI History of Present Illness Date/Time: 10/25/21 08:37 Chief Complaint: Recurrent open wound left plantar stump Narrative: 66-year-old male returns to the wound clinic today for reevaluation of recurrent wound on the plantar aspect of the left foot status post initiation of custom orthotics and double upright brace. He denies fever, chills, night sweats, nausea, vomiting or diarrhea. He has tolerated TCC well for the last one week. He is also one week s/p amnioexcel graft application. Review of Systems Review of Systems: All systems reviewed & are unremarkable except as noted in HPI and below Constitutional: Constitutional: Reports no additional constitutional complaints, Denies chills, Denies fever(s) and Denies headache(s) Eyes: Eyes: Reports no additional eye complaints and Denies change in vision ENT: Denies headache(s) and Denies sore throat Cardiovascular: Cardiovascular: Denies chest pain and Denies dyspnea Respiratory: Respiratory: Reports chest congestion, Reports cough and Denies dyspnea Gastrointestinal: Gastrointestinal: Denies diarrhea, Denies nausea and Denies vomiting Genitourinary: Genitourinary: Denies dysuria Musculoskeletal: Musculoskeletal: Reports deformity ( Left foot) and Reports numbness Integumentary/Breasts: Skin/Breast: Reports rash, Reports skin ulcer and Denies wounds Neurologic: Denies headache(s), Denies focal weakness and Denies numbness Psychiatric: Psychiatric: Reports no additional psychiatric complaints Endocrine: Endocrine: Reports no additional endocrine complaints Hematologic/Lymphatic: Hematologic/Lymphatic: Reports no additional hematologic/lymphatic complaints Allergic/Immunologic: Allergic/Immunologic: Reports no additional allergic/immunologic complaints [facility] Past Medical History Medical History Dehydration Diabetic foot ulcer with osteomyelitis Diabetic peripheral neuropathy Edema of lower extremity due to peripheral venous insufficiency Gastroesophageal reflux disease History of osteomyelitis 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 Ulcer of left foot due to type 2 diabetes mellitus Ulcer of right foot due to type 2 diabetes mellitus Pt. does not have Rt DFU Uncontrolled diabetes mellitus Uncontrolled type 2 diabetes mellitus Surgical History Surgical History Amputation of left midfoot (~2014) As treatment of osteomyelitis, done in [place]. History of transmetatarsal amputation of foot Status post left foot surgery Patient reports multiple debridements for osteomyelitis of the left foot prior to mid foot amputation. Family History Family History Father Renal cell carcinoma Social History Social History Social History: The patient lives in his own home in [place]. He has a daughter who lives in [place]. 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 Lifelong nonsmoker. He has not consumed alcohol for 3 years. No drug use. He designates his daughter, Cassandra Montoya, as his surrogate decision maker and he wishes to be a full code. Smoking status: Never smoker Second hand tobacco smoke exposure: Yes Alcohol intake: never Substance use: never Substance use type: does not use Gender identity (if verbalized by the patient): Male Spiritual care concerns: No Meds Home Medications and Allergies Home Medications Medication Instructions Recorded Confirmed Type blood sugar diagnostic (Blood #100 ea 10/17/20 07/02/21 Rx Glucose Test strips) blood-glucose meter #1 ea 10/17/20 07/02/21 Rx lancets #100 ea 10/17/20 07/02/21 Rx mecobalami
--- NOTE | 2021-11-01 08:59 | PM.IMHP ---
H&P: HPI History of Present Illness Date/Time: 11/01/21 08:59 Chief Complaint: Recurrent open wound left plantar stump Narrative: 66-year-old male returns to the wound clinic today for reevaluation of recurrent wound on the plantar aspect of the left foot status post initiation of custom orthotics and double upright brace. He denies fever, chills, night sweats, nausea, vomiting or diarrhea. He has tolerated TCC well for the last week. He is two weeks s/p Amnioexcel graft application. Review of Systems Review of Systems: All systems reviewed & are unremarkable except as noted in HPI and below Constitutional: Constitutional: Reports no additional constitutional complaints, Denies chills, Denies fever(s) and Denies headache(s) Eyes: Eyes: Reports no additional eye complaints and Denies change in vision ENT: Denies headache(s) and Denies sore throat Cardiovascular: Cardiovascular: Denies chest pain and Denies dyspnea Respiratory: Respiratory: Reports chest congestion, Reports cough and Denies dyspnea Gastrointestinal: Gastrointestinal: Denies diarrhea, Denies nausea and Denies vomiting Genitourinary: Genitourinary: Denies dysuria Musculoskeletal: Musculoskeletal: Reports deformity ( Left foot) and Reports numbness Integumentary/Breasts: Skin/Breast: Reports rash, Reports skin ulcer and Denies wounds Neurologic: Denies headache(s), Denies focal weakness and Denies numbness Psychiatric: Psychiatric: Reports no additional psychiatric complaints Endocrine: Endocrine: Reports no additional endocrine complaints Hematologic/Lymphatic: Hematologic/Lymphatic: Reports no additional hematologic/lymphatic complaints Allergic/Immunologic: Allergic/Immunologic: Reports no additional allergic/immunologic complaints [facility] Past Medical History Medical History Dehydration Diabetic foot ulcer with osteomyelitis Diabetic peripheral neuropathy Edema of lower extremity due to peripheral venous insufficiency Gastroesophageal reflux disease History of osteomyelitis 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 Ulcer of left foot due to type 2 diabetes mellitus Ulcer of right foot due to type 2 diabetes mellitus Pt. does not have Rt DFU Uncontrolled diabetes mellitus Uncontrolled type 2 diabetes mellitus Surgical History Surgical History Amputation of left midfoot (~2014) As treatment of osteomyelitis, done in [place]. History of transmetatarsal amputation of foot Status post left foot surgery Patient reports multiple debridements for osteomyelitis of the left foot prior to mid foot amputation. Family History Family History Father Renal cell carcinoma Social History Social History Social History: The patient lives in his own home in [place]. He has a daughter who lives in [place]. 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 Lifelong nonsmoker. He has not consumed alcohol for 3 years. No drug use. He designates his daughter, Cassandra Montoya, as his surrogate decision maker and he wishes to be a full code. Smoking status: Never smoker Second hand tobacco smoke exposure: Yes Alcohol intake: never Substance use: never Substance use type: does not use Gender identity (if verbalized by the patient): Male Spiritual care concerns: No Meds Home Medications and Allergies Home Medications Medication Instructions Recorded Confirmed Type blood sugar diagnostic (Blood #100 ea 10/17/20 07/02/21 Rx Glucose Test strips) blood-glucose meter #1 ea 10/17/20 07/02/21 Rx lancets #100 ea 10/17/20 07/02/21 Rx mecobalamin (vitam
--- NOTE | 2021-11-08 09:17 | PM.IMHP ---
H&P: HPI History of Present Illness Date/Time: 11/08/21 09:17 Chief Complaint: Left DFU s/p TMA Review of Systems Review of Systems: All systems reviewed & are unremarkable except as noted in HPI and below Constitutional: Constitutional: Reports no additional constitutional complaints, Denies chills, Denies fever(s) and Denies headache(s) Eyes: Eyes: Reports no additional eye complaints and Denies change in vision ENT: Denies headache(s) and Denies sore throat Cardiovascular: Cardiovascular: Denies chest pain and Denies dyspnea Respiratory: Respiratory: Reports chest congestion, Reports cough and Denies dyspnea Gastrointestinal: Gastrointestinal: Denies diarrhea, Denies nausea and Denies vomiting Genitourinary: Genitourinary: Denies dysuria Musculoskeletal: Musculoskeletal: Reports deformity ( Left foot) and Denies numbness Integumentary/Breasts: Skin/Breast: Reports rash, Reports skin ulcer and Denies wounds Neurologic: Denies confusion, Denies headache(s), Denies focal weakness and Denies numbness Psychiatric: Psychiatric: Reports no additional psychiatric complaints and Denies confusion Endocrine: Endocrine: Reports no additional endocrine complaints Hematologic/Lymphatic: Hematologic/Lymphatic: Reports no additional hematologic/lymphatic complaints Allergic/Immunologic: Allergic/Immunologic: Reports no additional allergic/immunologic complaints [facility] Past Medical History Medical History Dehydration Diabetic foot ulcer with osteomyelitis Diabetic peripheral neuropathy Edema of lower extremity due to peripheral venous insufficiency Gastroesophageal reflux disease History of osteomyelitis 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 Ulcer of left foot due to type 2 diabetes mellitus Ulcer of right foot due to type 2 diabetes mellitus Pt. does not have Rt DFU Uncontrolled diabetes mellitus Uncontrolled type 2 diabetes mellitus Surgical History Surgical History Amputation of left midfoot (~2014) As treatment of osteomyelitis, done in [place]. History of transmetatarsal amputation of foot Status post left foot surgery Patient reports multiple debridements for osteomyelitis of the left foot prior to mid foot amputation. Family History Family History Father Renal cell carcinoma Social History Social History Social History: The patient lives in his own home in [place]. He has a daughter who lives in [place]. 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 Lifelong nonsmoker. He has not consumed alcohol for 3 years. No drug use. He designates his daughter, Cassandra Montoya, as his surrogate decision maker and he wishes to be a full code. Smoking status: Never smoker Second hand tobacco smoke exposure: Yes Alcohol intake: never Substance use: never Substance use type: does not use Gender identity (if verbalized by the patient): Male Spiritual care concerns: No Meds Home Medications and Allergies Home Medications Medication Instructions Recorded Confirmed Type blood sugar diagnostic (Blood #100 ea 10/17/20 07/02/21 Rx Glucose Test strips) blood-glucose meter #1 ea 10/17/20 07/02/21 Rx lancets #100 ea 10/17/20 07/02/21 Rx mecobalamin (vitamin B12) 1,000 1,000 mcg sublingual DAILY #90 tabs 11/27/20 07/02/21 Rx mcg disintegrating tablet,sublingual furosemide 40 mg tablet 20 mg PO QAM #14 tabs 05/24/21 07/02/21 Rx insulin glargine 100 unit/mL (3 5 unit (0.05 mL) subcut QAM #15 mL 07/02/21 07/02/21 Rx mL) subcutaneous pen (Lantus Solostar U-100 Insulin) lisinopril 20 mg tablet
--- NOTE | 2021-11-15 08:31 | PM.PNORT ---
Progress Note: A&P Assessment and Plan (1) Ulcer of left foot due to type 2 diabetes mellitus: Code(s): E11.621 - Type 2 diabetes mellitus with foot ulcer; L97.529 - Non-pressure chronic ulcer of other part of left foot with unspecified severity Status: Acute Assessment and Plan: Continued improvement in dimensions/appearance of the wound bed with TCC and grafting. Patient currently awaiting custom shoe to be made by a different sports manager once done with casting. Recommended repeat TCC today and grafting. Follow up in 1 week for cast change. (2) Uncontrolled type 2 diabetes mellitus: Qualifiers: Glycemic state: with hyperglycemia Qualified Code(s): E11.65 - Type 2 diabetes mellitus with hyperglycemia Code(s): E11.65 - Type 2 diabetes mellitus with hyperglycemia Status: Resolved (3) Diabetic peripheral neuropathy: Code(s): E11.42 - Type 2 diabetes mellitus with diabetic polyneuropathy Status: Acute Subjective Subjective Date/Time Seen: 11/15/21 08:31 Principal diagnosis: LT DFU Interval history: [facility] clinic followup left foot. Total contact cast and grafting. No interim complaints. Review of Systems Review of Systems: All systems reviewed & are unremarkable except as noted in HPI and below Constitutional: Constitutional: Reports no additional constitutional complaints, Denies chills, Denies fever(s) and Denies headache(s) Eyes: Eyes: Reports no additional eye complaints and Denies change in vision ENT: Denies headache(s) and Denies sore throat Cardiovascular: Cardiovascular: Denies chest pain and Denies dyspnea Respiratory: Respiratory: Reports chest congestion, Reports cough and Denies dyspnea Gastrointestinal: Gastrointestinal: Denies diarrhea, Denies nausea and Denies vomiting Genitourinary: Genitourinary: Denies dysuria Musculoskeletal: Musculoskeletal: Reports deformity ( Left foot) and Denies numbness Integumentary/Breasts: Skin/Breast: Reports rash, Reports skin ulcer and Denies wounds Neurologic: Denies confusion, Denies headache(s), Denies focal weakness and Denies numbness Psychiatric: Psychiatric: Reports no additional psychiatric complaints and Denies confusion Endocrine: Endocrine: Reports no additional endocrine complaints Hematologic/Lymphatic: Hematologic/Lymphatic: Reports no additional hematologic/lymphatic complaints Allergic/Immunologic: Allergic/Immunologic: Reports no additional allergic/immunologic complaints Exam Const: General: healthy appearing; No in distress or confusion Nutritional Appearance: average body habitus Orientation/consciousness: patient oriented x3 and No confusion Limitations: no limitations HENMT: Head: normal to inspection, normocephalic and atraumatic Ears: hearing grossly normal bilaterally General nose exam: Normal external nose present Face and sinus: normal facial exam Mouth: Yes moist mucous membranes Teeth and gingiva: dentition normal Eyes: General: appearance normal, both eyes and all related structures Conjunctivae: conjunctivae normal Sclera: sclerae normal Pupils: Equal, round and reactive pupils present EOM: EOMs intact bilaterally Neck: Neck: normal visual inspection Chest: Chest palpation & inspection: normal inspection of the chest Resp: Effort & Inspection: normal respiratory effort and no audible wheezes Cardio: Jugular venous distension: no JVD Neuro: General: patient oriented x3 and No confusion Cranial nerves: Yes Equal, round and reactive pupils present Extrem: General: amputation noted Transmetatarsal: left Right lower extremity: foot Left lower extremity: ankle Details: abnormal to inspection (deformity, inversion. Minimal ROM of ankle. ) and foot Details: motor-sensory exam two point discrimination abnormal and light-touch abnormal; no tenderness, ROM of toes abnormal, ROM of toes normal and no unusual warmth Other: Calcaneal ulcer remains closed w
--- NOTE | 2021-11-22 08:43 | PM.PNORT ---
Progress Note: A&P Assessment and Plan (1) Ulcer of left foot due to type 2 diabetes mellitus: Code(s): E11.621 - Type 2 diabetes mellitus with foot ulcer; L97.529 - Non-pressure chronic ulcer of other part of left foot with unspecified severity Status: Acute Assessment and Plan: Left diabetic foot ulcer now fully healed. Patient scheduled for fitting for his orthotics and braces. Discussed daily skin and wound check. Reviewed activity limitations to prevent buildup of pressure left foot. Follow-up in 2 weeks with shoe and brace for evaluation. (2) Uncontrolled type 2 diabetes mellitus: Qualifiers: Glycemic state: with hyperglycemia Qualified Code(s): E11.65 - Type 2 diabetes mellitus with hyperglycemia Code(s): E11.65 - Type 2 diabetes mellitus with hyperglycemia Status: Resolved (3) Diabetic peripheral neuropathy: Code(s): E11.42 - Type 2 diabetes mellitus with diabetic polyneuropathy Status: Acute Subjective Subjective Date/Time Seen: 11/22/21 08:43 Principal diagnosis: LT DFU Interval history: patient presents for follow-up at the [facility]ound clinic followup left foot. Total contact cast and grafting. last graft application 1 week ago. No interim complaints. Review of Systems Review of Systems: All systems reviewed & are unremarkable except as noted in HPI and below Constitutional: Constitutional: Reports no additional constitutional complaints, Denies chills, Denies fever(s) and Denies headache(s) Eyes: Eyes: Reports no additional eye complaints and Denies change in vision ENT: Denies headache(s) and Denies sore throat Cardiovascular: Cardiovascular: Denies chest pain and Denies dyspnea Respiratory: Respiratory: Reports chest congestion, Reports cough and Denies dyspnea Gastrointestinal: Gastrointestinal: Denies diarrhea, Denies nausea and Denies vomiting Genitourinary: Genitourinary: Denies dysuria Musculoskeletal: Musculoskeletal: Reports deformity ( Left foot) and Denies numbness Integumentary/Breasts: Skin/Breast: Reports rash, Reports skin ulcer and Denies wounds Neurologic: Denies confusion, Denies headache(s), Denies focal weakness and Denies numbness Psychiatric: Psychiatric: Reports no additional psychiatric complaints and Denies confusion Endocrine: Endocrine: Reports no additional endocrine complaints Hematologic/Lymphatic: Hematologic/Lymphatic: Reports no additional hematologic/lymphatic complaints Allergic/Immunologic: Allergic/Immunologic: Reports no additional allergic/immunologic complaints Exam Const: General: healthy appearing; No in distress or confusion Nutritional Appearance: average body habitus Orientation/consciousness: patient oriented x3 and No confusion Limitations: no limitations HENMT: Head: normal to inspection, normocephalic and atraumatic Ears: hearing grossly normal bilaterally General nose exam: Normal external nose present Face and sinus: normal facial exam Mouth: Yes moist mucous membranes Teeth and gingiva: dentition normal Eyes: General: appearance normal, both eyes and all related structures Conjunctivae: conjunctivae normal Sclera: sclerae normal Pupils: Equal, round and reactive pupils present EOM: EOMs intact bilaterally Neck: Neck: normal visual inspection Chest: Chest palpation & inspection: normal inspection of the chest Resp: Effort & Inspection: normal respiratory effort and no audible wheezes Cardio: Jugular venous distension: no JVD Neuro: General: patient oriented x3 and No confusion Cranial nerves: Yes Equal, round and reactive pupils present Extrem: General: amputation noted Transmetatarsal: left Right lower extremity: foot Left lower extremity: ankle Details: abnormal to inspection (deformity, inversion. Minimal ROM of ankle. ) and foot Details: motor-sensory exam two point discrimination abnormal and light-touch abnormal; no tenderness, ROM of toes abnormal,
--- NOTE | 2021-12-03 09:13 | PM.PNORT ---
Progress Note: A&P Assessment and Plan (1) Ulcer of left foot due to type 2 diabetes mellitus: Code(s): E11.621 - Type 2 diabetes mellitus with foot ulcer; L97.529 - Non-pressure chronic ulcer of other part of left foot with unspecified severity Status: Acute Assessment and Plan: Left diabetic foot ulcer now fully healed. At risk for recurrent ulceration given his shoe wear status. He has a custom brace with 1 shoe. He now has a new shoe but unable to fit the brace both have custom orthotics. We discussed alternating his shoe wear and resting the foot in between with elevation. Daily skin checks and careful evaluation. Patient verbalizes understanding. Follow-up in 2 weeks for re-evaluation. Notify office for any changes immediately. (2) Uncontrolled type 2 diabetes mellitus: Qualifiers: Glycemic state: with hyperglycemia Qualified Code(s): E11.65 - Type 2 diabetes mellitus with hyperglycemia Code(s): E11.65 - Type 2 diabetes mellitus with hyperglycemia Status: Resolved (3) Diabetic peripheral neuropathy: Code(s): E11.42 - Type 2 diabetes mellitus with diabetic polyneuropathy Status: Acute Subjective Subjective Date/Time Seen: 12/03/21 09:13 Principal diagnosis: LT DFU Interval history: patient presents for follow-up at the [facility] clinic followup left foot. He has been out of the total contact cast for 3 weeks now. The 2nd shoe company will not switch over his brace. No interim complaints. Review of Systems Review of Systems: All systems reviewed & are unremarkable except as noted in HPI and below Constitutional: Constitutional: Reports no additional constitutional complaints, Denies chills, Denies fever(s) and Denies headache(s) Eyes: Eyes: Reports no additional eye complaints and Denies change in vision ENT: Denies headache(s) and Denies sore throat Cardiovascular: Cardiovascular: Denies chest pain and Denies dyspnea Respiratory: Respiratory: Reports chest congestion, Reports cough and Denies dyspnea Gastrointestinal: Gastrointestinal: Denies diarrhea, Denies nausea and Denies vomiting Genitourinary: Genitourinary: Denies dysuria Musculoskeletal: Musculoskeletal: Reports deformity ( Left foot) and Denies numbness Integumentary/Breasts: Skin/Breast: Reports rash, Reports skin ulcer and Denies wounds Neurologic: Denies confusion, Denies headache(s), Denies focal weakness and Denies numbness Psychiatric: Psychiatric: Reports no additional psychiatric complaints and Denies confusion Endocrine: Endocrine: Reports no additional endocrine complaints Hematologic/Lymphatic: Hematologic/Lymphatic: Reports no additional hematologic/lymphatic complaints Allergic/Immunologic: Allergic/Immunologic: Reports no additional allergic/immunologic complaints Exam Const: General: healthy appearing; No in distress or confusion Nutritional Appearance: average body habitus Orientation/consciousness: patient oriented x3 and No confusion Limitations: no limitations HENMT: Head: normal to inspection, normocephalic and atraumatic Ears: hearing grossly normal bilaterally General nose exam: Normal external nose present Face and sinus: normal facial exam Mouth: Yes moist mucous membranes Teeth and gingiva: dentition normal Eyes: General: appearance normal, both eyes and all related structures Conjunctivae: conjunctivae normal Sclera: sclerae normal Pupils: Equal, round and reactive pupils present EOM: EOMs intact bilaterally Neck: Neck: normal visual inspection Chest: Chest palpation & inspection: normal inspection of the chest Resp: Effort & Inspection: normal respiratory effort and no audible wheezes Cardio: Jugular venous distension: no JVD Neuro: General: patient oriented x3 and No confusion Cranial nerves: Yes Equal, round and reactive pupils present Extrem: General: amputation noted Transmetatarsal: left Right lower extremity: ez
--- NOTE | 2021-12-24 08:36 | PM.IMHP ---
H&P: HPI History of Present Illness Date/Time: 12/24/21 08:36 Chief Complaint: Left DFU s/p TMA Narrative: Patient follows up in the [facility] wound clinic for reevaluation of the left TMA. Patient has been alternating custom shoes/braces. No new breakdown of skin. No new concerns. Review of Systems Review of Systems: All systems reviewed & are unremarkable except as noted in HPI and below Constitutional: Constitutional: Reports no additional constitutional complaints, Denies chills, Denies fever(s) and Denies headache(s) Eyes: Eyes: Reports no additional eye complaints and Denies change in vision ENT: Denies headache(s) and Denies sore throat Cardiovascular: Cardiovascular: Denies chest pain and Denies dyspnea Respiratory: Respiratory: Reports chest congestion, Reports cough and Denies dyspnea Gastrointestinal: Gastrointestinal: Denies diarrhea, Denies nausea and Denies vomiting Genitourinary: Genitourinary: Denies dysuria Musculoskeletal: Musculoskeletal: Reports deformity ( Left foot) and Denies numbness Integumentary/Breasts: Skin/Breast: Reports rash, Reports skin ulcer and Denies wounds Neurologic: Denies confusion, Denies headache(s), Denies focal weakness and Denies numbness Psychiatric: Psychiatric: Reports no additional psychiatric complaints and Denies confusion Endocrine: Endocrine: Reports no additional endocrine complaints Hematologic/Lymphatic: Hematologic/Lymphatic: Reports no additional hematologic/lymphatic complaints Allergic/Immunologic: Allergic/Immunologic: Reports no additional allergic/immunologic complaints [facility] Past Medical History Medical History Dehydration Diabetic foot ulcer with osteomyelitis Diabetic peripheral neuropathy Edema of lower extremity due to peripheral venous insufficiency Gastroesophageal reflux disease History of osteomyelitis 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 Ulcer of left foot due to type 2 diabetes mellitus Ulcer of right foot due to type 2 diabetes mellitus Pt. does not have Rt DFU Uncontrolled diabetes mellitus Uncontrolled type 2 diabetes mellitus Surgical History Surgical History Amputation of left midfoot (~2014) As treatment of osteomyelitis, done in [place]. History of transmetatarsal amputation of foot Status post left foot surgery Patient reports multiple debridements for osteomyelitis of the left foot prior to mid foot amputation. Family History Family History Father Renal cell carcinoma Social History Social History Social History: The patient lives in his own home in [place]. He has a daughter who lives in [place]. 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 Lifelong nonsmoker. He has not consumed alcohol for 3 years. No drug use. He designates his daughter, Cassandra Montoya, as his surrogate decision maker and he wishes to be a full code. Smoking status: Never smoker Second hand tobacco smoke exposure: Yes Alcohol intake: never Substance use: never Substance use type: does not use Gender identity (if verbalized by the patient): Male Spiritual care concerns: No Meds Home Medications and Allergies Home Medications Medication Instructions Recorded Confirmed Type blood sugar diagnostic (Blood #100 ea 10/17/20 07/02/21 Rx Glucose Test strips) blood-glucose meter #1 ea 10/17/20 07/02/21 Rx lancets #100 ea 10/17/20 07/02/21 Rx mecobalamin (vitamin B12) 1,000 1,000 mcg sublingual DAILY #90 tabs 11/27/20 07/02/21 Rx mcg disintegrating tablet,sublingual furosemide 40 mg tablet 20 mg PO QAM #14 tabs 05/24/2106/18
== END 2022-01-02 23:59 | disposition home or self-care (01) ==
LOC: ANHWOC 07:28
PROVIDERS: PCP Internal Medicine; Referring Provider Nurse Practitioner Family; Visit Provider Nurse Practitioner Family
DX: E11.621 Type 2 diabetes mellitus with foot ulcer (principal); L97.529 Non-pressure chronic ulcer of other part of left foot with unspecified severity; E11.69 Type 2 diabetes mellitus with other specified complication; M86.9 Osteomyelitis, unspecified
CPT/HCPCS: 15275; 29445; 99212; 99213; G0463; Q4137

== ENCOUNTER 2022-08-26 13:55 | Outpatient (CLI) | payer MEDICARE, BC, OTHER, SELFPAY ==
[2022-08-26 19:11] LABS: Basophils Percent Auto 0.5 % (0.2-1.2); Eosinophils Absolute Auto 0.2 K/mm3 (0-0.3); Eosinophils Percent Auto 1.9 % (0-4.4); Hematocrit 31.6 % (42.0-52.0); Hemoglobin 10.1 g/dL (14.0-18.0); Immature Granulocyte Absolute 0.02 K/mm3 (0.00-0.031); Immature Granulocyte Percent A 0.3 % (0-0.5); Lymphocytes Absolute Auto 1.12 K/mm3 (0.9-3.2); Lymphocytes Percent Auto 14.3 % (18.3-44.2); Mean Corpuscular Hemoglobin 29.4 pg (26-34); Mean Corpuscular Volume 91.9 fl (80-100); Mean Platelet Volume 9.7 fl (7.4-10.4); Monocytes Absolute Auto 0.6 K/mm3 (0.1-0.6); Monocytes Percent Auto 7.9 % (2.6-8.5); Neutrophils Absolute Auto 5.9 K/mm3 (1.3-6.7); Neutrophils Percent Auto 75.1 % (45.5-73.1); Platelet Count Result 306 k/mm3 (150-375); Red Blood Count 3.44 M/mm3 (4.6-6.20); White Blood Count 7.8 K/mm3 (4.5-10.0)
[2022-08-26 19:20] LABS: Alanine Aminotransferase 18 U/L (6-50); Albumin Level 3.4 g/dL (3.5-5.1); Alkaline Phosphatase 121 U/L (38-126); Anion Gap 5 mmol/L (8-16); Aspartate Amino Transferase 24 U/L (17-59); Bilirubin,Total 0.8 mg/dL (0.2-1.3); Blood Urea Nitrogen 17 mg/dL (9-20); Calcium 8.3 mg/dL (8.4-10.2); Carbon Dioxide 28 mmol/L (22-30); Chloride 105 mmol/L (98-107); Cholesterol 169 mg/dL (0-200); Estimated Glomerular Filt Rate 55; Glucose 93 mg/dL (65-110); HDL Direct 31 mg/dL; Potassium 4.5 mmol/L (3.4-5.0); Sodium 138 mmol/L (137-145); Triglycerides 84 mg/dL (<150)
[2022-08-26 19:31] LABS: LDL Cholesterol Direct 115 mg/dL
[2022-08-26 19:38] LABS: Creatinine Urine 246.6 mg/dL
[2022-08-26 19:45] LABS: Prostate Specific Antigen 0.6 ng/mL (< OR = 4.0)
[2022-08-26 19:51] LABS: Vitamin D 25 Hydroxy 18.9 ng/mL
[2022-08-26 20:46] LABS: Hemoglobin A1C 6.2 % (<5.7)
[2022-08-26 23:33] LABS: Microalbumin Urine Random > 1140.0 mg/L (0-16.7)
[2022-08-27 09:36] LABS: Iron 33 ug/dL (49-181)
[2022-08-27 09:39] LABS: Percent Iron Saturation 13 % (20-50)
== END 2022-08-26 13:56 | disposition home or self-care (01) ==
LOC: ANHGOSHLAB 13:56
PROVIDERS: PCP Family Medicine; Visit Provider Family Medicine
DX: I10 Essential (primary) hypertension (principal); E53.8 Deficiency of other specified B group vitamins; Z00.00 Encounter for general adult medical examination without abnormal findings; E11.9 Type 2 diabetes mellitus without complications; E78.5 Hyperlipidemia, unspecified; Z12.5 Encounter for screening for malignant neoplasm of prostate; E55.9 Vitamin D deficiency, unspecified
CPT/HCPCS: 36415; 80053; 80061; 82043; 82306; 82607; 82728; 83036; 83540; 83550; 84153; 84443; 85025; G0103

== ENCOUNTER 2022-09-04 13:30 | Outpatient (CLI) | payer MEDICARE, BC, OTHER, SELFPAY ==
--- NOTE | ~2022-09-04 | US_ITS ---
US art doppler w press LE BI INDICATION: Peripheral vascular disease TECHNIQUE: Segmental pressures and plethysmographic and Doppler waveforms of the brachial and lower e xtremity arteries were obtained. COMPARISON: Venous ultrasound dated FINDINGS: Right and left brachial artery pressures of 150 mm Hg and 156 mm Hg, respectively, are concordant (no rmal difference <= 30 mmHg). The right ankle-brachial index (ANTONIO) is 1.12 (normal >= 0.9-1.0). The right great toe-brachial index (TBI) is 0.97 (normal >= 0.60). The left lower extremity artery pressures could not be performed due to deep venous thrombosis in the left lower extremity. IMPRESSION: 1. Normal right ankle and toe brachial indices. Reviewed, dictated and finalized at location A.
--- NOTE | ~2022-09-04 | US_ITS ---
EXAMINATION:US venous doppler LE LT INDICATION:History of DVT. TECHNIQUE: Multiple grayscale, color flow and Doppler images of the left lower extremity deep venous systems were obtained and reviewed. COMPARISON:Ultrasound dated 08/21/2020 FINDINGS: There is deep venous thrombosis of the left femoral, popliteal, posterior tibial, peroneal and gastrocnemius veins. There is normal flow in the left common femoral, profunda femoral and greate r saphenous veins. IMPRESSION: 1: Extensive deep venous thrombosis of the left lower extremity. Reviewed, dictated and finalized at location A.
== END 2022-09-04 13:31 | disposition home or self-care (01) ==
PROVIDERS: PCP Family Medicine; Visit Provider Family Medicine
DX: M79.89 Other specified soft tissue disorders (principal); Z86.718 Personal history of other venous thrombosis and embolism; I82.402 Acute embolism and thrombosis of unspecified deep veins of left lower extremity
CPT/HCPCS: 93923; 93971

== ENCOUNTER 2022-10-24 13:39 | Outpatient (CLI) | payer MEDICARE, BC, SELFPAY ==
--- NOTE | ~2022-10-24 | US_ITS ---
EXAMINATION: US venous doppler [facility] DATE: 10/24/2022 14:16 INDICATION: Left lower limb swelling TECHNIQUE: Bah scale images without and with compression and Doppler images of the left lower extrem ity veins were obtained. COMPARISON: 09/04/2022 FINDINGS: There is persistent thrombosis of the femoral vein, popliteal vein, peroneal trunk, and pos terior tibial veins. Gastrocnemius vein is now patent. IMPRESSION: 1. Persistent thrombosis of the femoral vein, popliteal vein, peroneal trunk, and posterior tibial ve ins. Reviewed, dictated and finalized at location F. IMPRESSION: 1. Persistent thrombosis of the femoral vein, popliteal vein, peroneal trunk, a nd posterior tibial veins.
== END 2022-10-24 13:40 | disposition home or self-care (01) ==
PROVIDERS: PCP Family Medicine; Visit Provider Nurse Practitioner Family
DX: I82.412 Acute embolism and thrombosis of left femoral vein (principal); I82.432 Acute embolism and thrombosis of left popliteal vein; I82.452 Acute embolism and thrombosis of left peroneal vein; I82.442 Acute embolism and thrombosis of left tibial vein; Z86.718 Personal history of other venous thrombosis and embolism
CPT/HCPCS: 93971

== ENCOUNTER 2022-12-16 08:30 | Outpatient (RCR) | payer MEDICARE, BC, SELFPAY ==
[2022-09-30 08:21] VITALS: BMI 26.5
--- NOTE | 2022-09-30 08:31 | PM.IMHP ---
H&P: HPI History of Present Illness Date/Time: 09/30/22 08:31 Chief Complaint: Left foot ulcer Narrative: [facility] evaluation for diabetic foot ulcer which started 2 weeks ago. Using Sun and silver gel with daily dressing changes. No fever chills or systemic complaints. Does have left leg swelling, diagnosed with DVT. Review of Systems Review of Systems: All systems reviewed & are unremarkable except as noted in HPI and below Constitutional: Constitutional: Reports no additional constitutional complaints, Denies chills, Denies fever(s) and Denies headache(s) Eyes: Eyes: Reports no additional eye complaints and Denies change in vision ENT: Denies headache(s) and Denies sore throat Cardiovascular: Cardiovascular: Denies chest pain and Denies dyspnea Respiratory: Respiratory: Reports chest congestion, Reports cough and Denies dyspnea Gastrointestinal: Gastrointestinal: Denies diarrhea, Denies nausea and Denies vomiting Genitourinary: Genitourinary: Denies dysuria Musculoskeletal: Musculoskeletal: Reports deformity ( Left foot) and Denies numbness Integumentary/Breasts: Skin/Breast: Reports rash, Reports skin ulcer and Denies wounds Neurologic: Denies confusion, Denies headache(s), Denies focal weakness and Denies numbness Psychiatric: Psychiatric: Reports no additional psychiatric complaints and Denies confusion Endocrine: Endocrine: Reports no additional endocrine complaints Hematologic/Lymphatic: Hematologic/Lymphatic: Reports no additional hematologic/lymphatic complaints Allergic/Immunologic: Allergic/Immunologic: Reports no additional allergic/immunologic complaints [facility] Past Medical History Medical History CKD (chronic kidney disease) stage 3, GFR 30-59 ml/min Diabetic foot ulcer with osteomyelitis (~08/2020) Diabetic peripheral neuropathy Edema of lower extremity due to peripheral venous insufficiency Gastroesophageal reflux disease History of deep venous thrombosis (DVT) of distal vein of left lower extremity (~2005) History of osteomyelitis Lower extremity edema Peripheral arterial disease Type 2 diabetes mellitus Ulcer of left foot due to type 2 diabetes mellitus Uncontrolled type 2 diabetes mellitus Vaccine counseling Surgical History Surgical History Amputation of left midfoot (~2014) As treatment of osteomyelitis, done in [place]. History of transmetatarsal amputation of foot (~08/2020) Status post left foot surgery Patient reports multiple debridements for osteomyelitis of the left foot prior to mid foot amputation. Family History Family History Father Renal cell carcinoma Social History Social History Social History: The patient lives in his own home in [place]. He has a daughter who lives in [place]. 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 Lifelong nonsmoker. He has not consumed alcohol for 3 years. No drug use. He designates his daughter, Cassandra Montoya, as his surrogate decision maker and he wishes to be a full code. Smoking status: Never smoker Second hand tobacco smoke exposure: Yes Alcohol intake: current Alcohol use details: seldom Substance use: never Substance use type: does not use Lack of Transportation: No Lack of Food: Never True Current Housing: I Have Housing Concerned About Future Housing: No Difficulty Paying Gas/Electric Bills: No Difficulty Paying for Meds: No Currently Unemployed: No Education: Associate Degree Difficulty w/ Childcare or Family Care: No Living arrangements: alone Occupation/Education: retired Gender identity (if verbalized by the patient): Male Spiritual care concerns: No Agree to
--- NOTE | 2022-10-21 08:29 | PM.IMHP ---
H&P: HPI History of Present Illness Date/Time: 10/21/22 08:29 Chief Complaint: Left foot ulcer Narrative: [facility] evaluation for diabetic foot ulcer which started 4 weeks ago. Using Sun and silver gel with daily dressing changes. No fever chills or systemic complaints. Does have left leg swelling, diagnosed with DVT. Review of Systems Review of Systems: All systems reviewed & are unremarkable except as noted in HPI and below Constitutional: Constitutional: Reports no additional constitutional complaints, Denies chills, Denies fever(s) and Denies headache(s) Eyes: Eyes: Reports no additional eye complaints and Denies change in vision ENT: Denies headache(s) and Denies sore throat Cardiovascular: Cardiovascular: Denies chest pain and Denies dyspnea Respiratory: Respiratory: Reports chest congestion, Reports cough and Denies dyspnea Gastrointestinal: Gastrointestinal: Denies diarrhea, Denies nausea and Denies vomiting Genitourinary: Genitourinary: Denies dysuria Musculoskeletal: Musculoskeletal: Reports deformity ( Left foot) and Denies numbness Integumentary/Breasts: Skin/Breast: Reports rash, Reports skin ulcer and Denies wounds Neurologic: Denies confusion, Denies headache(s), Denies focal weakness and Denies numbness Psychiatric: Psychiatric: Reports no additional psychiatric complaints and Denies confusion Endocrine: Endocrine: Reports no additional endocrine complaints Hematologic/Lymphatic: Hematologic/Lymphatic: Reports no additional hematologic/lymphatic complaints Allergic/Immunologic: Allergic/Immunologic: Reports no additional allergic/immunologic complaints [facility] Past Medical History Medical History CKD (chronic kidney disease) stage 3, GFR 30-59 ml/min Diabetic foot ulcer with osteomyelitis (~08/2020) Diabetic peripheral neuropathy Edema of lower extremity due to peripheral venous insufficiency Gastroesophageal reflux disease History of deep venous thrombosis (DVT) of distal vein of left lower extremity (~2005) History of osteomyelitis Lower extremity edema Peripheral arterial disease Type 2 diabetes mellitus Ulcer of left foot due to type 2 diabetes mellitus Uncontrolled type 2 diabetes mellitus Vaccine counseling Surgical History Surgical History Amputation of left midfoot (~2014) As treatment of osteomyelitis, done in [place]. History of transmetatarsal amputation of foot (~08/2020) Status post left foot surgery Patient reports multiple debridements for osteomyelitis of the left foot prior to mid foot amputation. Family History Family History Father Renal cell carcinoma Social History Social History Social History: The patient lives in his own home in [place]. He has a daughter who lives in [place]. 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 Lifelong nonsmoker. He has not consumed alcohol for 3 years. No drug use. He designates his daughter, Cassandra Montoya, as his surrogate decision maker and he wishes to be a full code. Smoking status: Never smoker Second hand tobacco smoke exposure: Yes Alcohol intake: current Alcohol use details: seldom Substance use: never Substance use type: does not use Lack of Transportation: No Lack of Food: Never True Current Housing: I Have Housing Concerned About Future Housing: No Difficulty Paying Gas/Electric Bills: No Difficulty Paying for Meds: No Currently Unemployed: No Education: Associate Degree Difficulty w/ Childcare or Family Care: No Living arrangements: alone Occupation/Education: retired Gender identity (if verbalized by the patient): Male Spiritual care concerns: No Agree to blood
--- NOTE | 2022-10-28 08:49 | PM.IMHP ---
H&P: HPI History of Present Illness Date/Time: 10/28/22 08:49 Chief Complaint: Left foot ulcer Narrative: [facility] evaluation for diabetic foot ulcer which started 5 weeks ago. Using Sun and silver gel with daily dressing changes. No fever chills or systemic complaints. Does have left leg swelling, diagnosed with DVT. On anticoagulation. Review of Systems Review of Systems: All systems reviewed & are unremarkable except as noted in HPI and below Constitutional: Constitutional: Reports no additional constitutional complaints, Denies chills, Denies fever(s) and Denies headache(s) Eyes: Eyes: Reports no additional eye complaints and Denies change in vision ENT: Denies headache(s) and Denies sore throat Cardiovascular: Cardiovascular: Denies chest pain and Denies dyspnea Respiratory: Respiratory: Reports chest congestion, Reports cough and Denies dyspnea Gastrointestinal: Gastrointestinal: Denies diarrhea, Denies nausea and Denies vomiting Genitourinary: Genitourinary: Denies dysuria Musculoskeletal: Musculoskeletal: Reports deformity ( Left foot) and Denies numbness Integumentary/Breasts: Skin/Breast: Reports rash, Reports skin ulcer and Denies wounds Neurologic: Denies confusion, Denies headache(s), Denies focal weakness and Denies numbness Psychiatric: Psychiatric: Reports no additional psychiatric complaints and Denies confusion Endocrine: Endocrine: Reports no additional endocrine complaints Hematologic/Lymphatic: Hematologic/Lymphatic: Reports no additional hematologic/lymphatic complaints Allergic/Immunologic: Allergic/Immunologic: Reports no additional allergic/immunologic complaints [facility] Past Medical History Medical History CKD (chronic kidney disease) stage 3, GFR 30-59 ml/min Diabetic foot ulcer with osteomyelitis (~08/2020) Diabetic peripheral neuropathy Edema of lower extremity due to peripheral venous insufficiency Gastroesophageal reflux disease History of deep venous thrombosis (DVT) of distal vein of left lower extremity (~2005) History of osteomyelitis Lower extremity edema Peripheral arterial disease Type 2 diabetes mellitus Ulcer of left foot due to type 2 diabetes mellitus Uncontrolled type 2 diabetes mellitus Vaccine counseling Surgical History Surgical History Amputation of left midfoot (~2014) As treatment of osteomyelitis, done in [place]. History of transmetatarsal amputation of foot (~08/2020) Status post left foot surgery Patient reports multiple debridements for osteomyelitis of the left foot prior to mid foot amputation. Family History Family History Father Renal cell carcinoma Social History Social History Social History: The patient lives in his own home in [place]. He has a daughter who lives in [place]. 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 Lifelong nonsmoker. He has not consumed alcohol for 3 years. No drug use. He designates his daughter, Cassandra Montoya, as his surrogate decision maker and he wishes to be a full code. Smoking status: Never smoker Second hand tobacco smoke exposure: Yes Alcohol intake: current Alcohol use details: seldom Substance use: never Substance use type: does not use Lack of Transportation: No Lack of Food: Never True Current Housing: I Have Housing Concerned About Future Housing: No Difficulty Paying Gas/Electric Bills: No Difficulty Paying for Meds: No Currently Unemployed: No Education: Associate Degree Difficulty w/ Childcare or Family Care: No Living arrangements: alone Occupation/Education: retired Gender identity (if verbalized by the patient): Male Spiritual care concerns:
--- NOTE | 2022-11-04 13:14 | W.PM.PROC2 ---
Procedure Note - Detailed Date of Procedure 11/04/22 Pre-op Diagnosis E11.621, L97.519, L97.529 [facility] diabetic foot ulcers Post-op Diagnosis Same Procedure Performed Excisional debridement of left foot diabetic ulcer including the muscle layer Surgeon Vini Ponce MD Transportation Officer none Anesthesia None Indications 67-year-old with peripheral neuropathy and left diabetic foot ulcer on the plantar aspect of the midfoot. Status post transmetatarsal amputation. Wound nonhealing with conservative measures. Indicated for debridement. Description of Procedure After informed consent the left foot was prepped with a alcohol prep solution. 15 blade knife used to sharply excise skin, subcutaneous tissue and muscle from the plantar aspect of the foot. Devitalized tissue sharply excised and passed off. Bleeding controlled with pressure. Irrigated after debridement. Sterile dressing applied. Estimated Blood Loss 1 Tourniquet Time 0 Packing Yes Pathology None sent Complications None Condition Stable Disposition Other [facility] Billing Surgery - Charge Forward: Surgery Billing ([id number])
--- NOTE | 2022-11-04 13:16 | PM.IMHP ---
H&P: HPI History of Present Illness Date/Time: 11/04/22 13:16 Chief Complaint: Left foot ulcer Narrative: [facility] evaluation for diabetic foot ulcer which started 6 weeks ago. Using Sun and silver gel with daily dressing changes. No fever chills or systemic complaints. Does have left leg swelling, diagnosed with DVT. On anticoagulation. Had repeat Doppler study done of the left leg which showed persistent clot of the femoral and popliteal veins. Previous ankle brace in disrepair and broken down. No longer stabilize the ankle and foot. Review of Systems Review of Systems: All systems reviewed & are unremarkable except as noted in HPI and below Constitutional: Constitutional: Reports no additional constitutional complaints, Denies chills, Denies fever(s) and Denies headache(s) Eyes: Eyes: Reports no additional eye complaints and Denies change in vision ENT: Denies headache(s) and Denies sore throat Cardiovascular: Cardiovascular: Denies chest pain and Denies dyspnea Respiratory: Respiratory: Reports chest congestion, Reports cough and Denies dyspnea Gastrointestinal: Gastrointestinal: Denies diarrhea, Denies nausea and Denies vomiting Genitourinary: Genitourinary: Denies dysuria Musculoskeletal: Musculoskeletal: Reports deformity ( Left foot) and Denies numbness Integumentary/Breasts: Skin/Breast: Reports rash, Reports skin ulcer and Denies wounds Neurologic: Denies confusion, Denies headache(s), Denies focal weakness and Denies numbness Psychiatric: Psychiatric: Reports no additional psychiatric complaints and Denies confusion Endocrine: Endocrine: Reports no additional endocrine complaints Hematologic/Lymphatic: Hematologic/Lymphatic: Reports no additional hematologic/lymphatic complaints Allergic/Immunologic: Allergic/Immunologic: Reports no additional allergic/immunologic complaints [facility] Past Medical History Medical History CKD (chronic kidney disease) stage 3, GFR 30-59 ml/min Diabetic foot ulcer with osteomyelitis (~08/2020) Diabetic peripheral neuropathy Edema of lower extremity due to peripheral venous insufficiency Gastroesophageal reflux disease History of deep venous thrombosis (DVT) of distal vein of left lower extremity (~2005) History of osteomyelitis Lower extremity edema Peripheral arterial disease Type 2 diabetes mellitus Ulcer of left foot due to type 2 diabetes mellitus Uncontrolled type 2 diabetes mellitus Vaccine counseling Surgical History Surgical History Amputation of left midfoot (~2014) As treatment of osteomyelitis, done in [place]. History of transmetatarsal amputation of foot (~08/2020) Status post left foot surgery Patient reports multiple debridements for osteomyelitis of the left foot prior to mid foot amputation. Family History Family History Father Renal cell carcinoma Social History Social History Social History: The patient lives in his own home in [place]. He has a daughter who lives in [place]. 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 Lifelong nonsmoker. He has not consumed alcohol for 3 years. No drug use. He designates his daughter, Cassandra Montoya, as his surrogate decision maker and he wishes to be a full code. Smoking status: Never smoker Second hand tobacco smoke exposure: Yes Alcohol intake: current Alcohol use details: seldom Substance use: never Substance use type: does not use Lack of Transportation: No Lack of Food: Never True Current Housing: I Have Housing Concerned About Future Housing: No Difficulty Paying Gas/Electric Bills: No Difficulty Paying for Meds: No Currently Unemployed: No Education: A
--- NOTE | 2022-12-02 09:12 | PM.IMHP ---
H&P: HPI History of Present Illness Date/Time: 12/02/22 09:12 Chief Complaint: Left diabetic foot ulcer Narrative: patient returns to [facility] in clinic for re-evaluation of left foot ulcer. Status post partial foot amputation. No interim complaints. Denies systemic problems including fever, chills, problems eating. [facility] Past Medical History Medical History CKD (chronic kidney disease) stage 3, GFR 30-59 ml/min Diabetic foot ulcer with osteomyelitis (~08/2020) Diabetic peripheral neuropathy Edema of lower extremity due to peripheral venous insufficiency Gastroesophageal reflux disease History of deep venous thrombosis (DVT) of distal vein of left lower extremity (~2005) History of osteomyelitis Lower extremity edema Peripheral arterial disease Type 2 diabetes mellitus Ulcer of left foot due to type 2 diabetes mellitus Uncontrolled type 2 diabetes mellitus Vaccine counseling Surgical History Surgical History Amputation of left midfoot (~2014) As treatment of osteomyelitis, done in [place]. History of transmetatarsal amputation of foot (~08/2020) Status post left foot surgery Patient reports multiple debridements for osteomyelitis of the left foot prior to mid foot amputation. Family History Family History Father Renal cell carcinoma Social History Social History Social History: The patient lives in his own home in [place]. He has a daughter who lives in [place]. 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 Lifelong nonsmoker. He has not consumed alcohol for 3 years. No drug use. He designates his daughter, Cassandra Montoya, as his surrogate decision maker and he wishes to be a full code. Smoking status: Never smoker Second hand tobacco smoke exposure: Yes Alcohol intake: current Alcohol use details: seldom Substance use: never Substance use type: does not use Lack of Transportation: No Lack of Food: Never True Current Housing: I Have Housing Concerned About Future Housing: No Difficulty Paying Gas/Electric Bills: No Difficulty Paying for Meds: No Currently Unemployed: No Education: Associate Degree Difficulty w/ Childcare or Family Care: No Living arrangements: alone Occupation/Education: retired Gender identity (if verbalized by the patient): Male Spiritual care concerns: No Agree to blood products: Yes Meds Home Medications and Allergies Home Medications Medication Instructions Recorded Confirmed Type blood sugar diagnostic (Blood #100 ea 10/17/20 09/30/22 Rx Glucose Test strips) blood-glucose meter #1 ea 10/17/20 09/30/22 Rx lancets #100 ea 10/17/20 09/30/22 Rx ergocalciferol (vitamin D2) 1,250 1,250 mcg PO WEEKLY #12 caps 08/27/22 09/30/22 Rx mcg (50,000 unit) capsule atorvastatin 10 mg tablet (Lipitor) 10 mg PO QHS #90 tabs 08/28/22 09/30/22 Rx ferrous sulfate 324 mg (65 mg 324 mg PO DAILY #90 tabs 08/28/22 09/30/22 Rx iron) tablet,delayed release metformin 500 mg tablet,extended 1,000 mg PO QPM #180 tabs 08/28/22 09/30/22 Rx release 24hr Vitamin Super B Complex 1 tab-cap PO DAILY 09/30/22 09/30/22 History cholecalciferol (vitamin D3) 25 1,000 unit PO DAILY 09/30/22 09/30/22 History mcg (1,000 unit) chewable tablet mecobalamin (vitamin B12) 1,000 500 mcg sublingual DAILY 09/30/22 09/30/22 History mcg disintegrating tablet,sublingual rosuvastatin 5 mg tablet 5 mg PO DAILY 09/30/22 09/30/22 History lisinopril 10 mg tablet 10 mg PO DAILY #90 tabs 11/05/22 Rx rivaroxaban 20 mg tablet (Xarelto) 20 mg PO DAILY #90 tabs 12/01/22 Rx Allergies Allergy/AdvReac Type Severity Reaction Status Date / Time metoclopramide [From Reglan] Allergy Int
== END 2022-12-29 23:59 | disposition home or self-care (01) ==
LOC: ANHWOC 08:30
PROVIDERS: PCP Family Medicine; Visit Provider Orthopaedic Surgery
DX: E11.621 Type 2 diabetes mellitus with foot ulcer (principal); L97.519 Non-pressure chronic ulcer of other part of right foot with unspecified severity; L97.529 Non-pressure chronic ulcer of other part of left foot with unspecified severity
CPT/HCPCS: 99213; G0463

== ENCOUNTER 2023-03-16 12:56 | Outpatient (CLI) | payer MEDICARE, BC, SELFPAY ==
--- NOTE | ~2023-03-16 | US_ITS ---
EXAMINATION:US venous doppler LE LT INDICATION:Chronic deep venous thrombosis of the left lower extremity TECHNIQUE: Multiple grayscale, color flow and Doppler images of the left lower extremity deep venous systems were obtained and reviewed. COMPARISON:10/24/2022 FINDINGS: There is chronic deep venous thrombosis of the left profunda femoral, femoral, popliteal, p osterior tibial and gastrocnemius veins. There is left inguinal lymphadenopathy, largest measuring 4. 3 x 2.4 x 0.9 cm. IMPRESSION: 1: Chronic deep venous thrombosis of the left lower extremity.. Reviewed, dictated and finalized at location A.
== END 2023-03-16 12:57 | disposition home or self-care (01) ==
LOC: ANHIMG 12:57
PROVIDERS: PCP Family Medicine; Visit Provider Internal Medicine Hematology & Oncology
DX: I82.5Z2 Chronic embolism and thrombosis of unspecified deep veins of left distal lower extremity (principal)
CPT/HCPCS: 93971

== ENCOUNTER 2023-03-17 07:16 | Outpatient (RCR) | payer MEDICARE, BC, SELFPAY ==
[2022-12-30 00:03] VITALS: BMI 26.5
--- NOTE | 2022-12-30 08:27 | PM.IMHP ---
H&P: HPI History of Present Illness Date/Time: 12/30/22 08:27 Chief Complaint: left diabetic foot ulcer, status post amputation Narrative: continues with Sun, silver gel and foam. Still waiting new shoe and brace. No new complaints. [facility] Past Medical History Medical History CKD (chronic kidney disease) stage 3, GFR 30-59 ml/min Diabetic foot ulcer with osteomyelitis (~08/2020) Diabetic peripheral neuropathy Edema of lower extremity due to peripheral venous insufficiency Gastroesophageal reflux disease History of deep venous thrombosis (DVT) of distal vein of left lower extremity (~2005) History of osteomyelitis Lower extremity edema Peripheral arterial disease Type 2 diabetes mellitus Ulcer of left foot due to type 2 diabetes mellitus Uncontrolled type 2 diabetes mellitus Vaccine counseling Surgical History Surgical History Amputation of left midfoot (~2014) As treatment of osteomyelitis, done in [place]. History of transmetatarsal amputation of foot (~08/2020) Status post left foot surgery Patient reports multiple debridements for osteomyelitis of the left foot prior to mid foot amputation. Family History Family History Father Renal cell carcinoma Social History Social History Social History: The patient lives in his own home in [place]. He has a daughter who lives in [place]. 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 Lifelong nonsmoker. He has not consumed alcohol for 3 years. No drug use. He designates his daughter, Cassandra Montoya, as his surrogate decision maker and he wishes to be a full code. Smoking status: Never smoker Second hand tobacco smoke exposure: Yes Alcohol intake: current Alcohol use details: seldom Substance use: never Substance use type: does not use Lack of Transportation: No Lack of Food: Never True Current Housing: I Have Housing Concerned About Future Housing: No Difficulty Paying Gas/Electric Bills: No Difficulty Paying for Meds: No Currently Unemployed: No Education: Associate Degree Difficulty w/ Childcare or Family Care: No Living arrangements: alone Occupation/Education: retired Gender identity (if verbalized by the patient): Male Spiritual care concerns: No Agree to blood products: Yes Meds Home Medications and Allergies Home Medications Medication Instructions Recorded Confirmed Type blood sugar diagnostic (Blood #100 ea 10/17/20 09/30/22 Rx Glucose Test strips) blood-glucose meter #1 ea 10/17/20 09/30/22 Rx lancets #100 ea 10/17/20 09/30/22 Rx ergocalciferol (vitamin D2) 1,250 1,250 mcg PO WEEKLY #12 caps 08/27/22 09/30/22 Rx mcg (50,000 unit) capsule atorvastatin 10 mg tablet (Lipitor) 10 mg PO QHS #90 tabs 08/28/22 09/30/22 Rx ferrous sulfate 324 mg (65 mg 324 mg PO DAILY #90 tabs 08/28/22 09/30/22 Rx iron) tablet,delayed release metformin 500 mg tablet,extended 1,000 mg PO QPM #180 tabs 08/28/22 09/30/22 Rx release 24hr Vitamin Super B Complex 1 tab-cap PO DAILY 09/30/22 09/30/22 History cholecalciferol (vitamin D3) 25 1,000 unit PO DAILY 09/30/22 09/30/22 History mcg (1,000 unit) chewable tablet mecobalamin (vitamin B12) 1,000 500 mcg sublingual DAILY 09/30/22 09/30/22 History mcg disintegrating tablet,sublingual rosuvastatin 5 mg tablet 5 mg PO DAILY 09/30/22 09/30/22 History lisinopril 10 mg tablet 10 mg PO DAILY #90 tabs 11/05/22 Rx rivaroxaban 20 mg tablet (Xarelto) 20 mg PO DAILY #90 tabs 12/01/22 Rx Allergies Allergy/AdvReac Type Severity Reaction Status Date / Time metoclopramide [From Reglan] Allergy Intermediate Irritable Verified 09/22/22 10:43 Exam Const: General: healthy appearing
--- NOTE | 2023-02-03 08:43 | PM.IMHP ---
H&P: HPI History of Present Illness Date/Time: 02/03/23 08:43 Chief Complaint: Chronic Left diabetic foot ulcer, status post amputation Narrative: Patient reports continued improvement in swelling of the LLE. Continues with treatment for DVT. Wound on the plantar foot with no new changes or concerns. No new complaints today. Review of Systems Review of Systems: All systems reviewed & are unremarkable except as noted in HPI and below Constitutional: Constitutional: Reports no additional constitutional complaints, Denies chills, Denies fever(s) and Denies headache(s) Eyes: Eyes: Reports no additional eye complaints and Denies change in vision ENT: Denies headache(s) and Denies sore throat Cardiovascular: Cardiovascular: Denies chest pain and Denies dyspnea Respiratory: Respiratory: Reports chest congestion, Reports cough and Denies dyspnea Gastrointestinal: Gastrointestinal: Denies diarrhea, Denies nausea and Denies vomiting Genitourinary: Genitourinary: Denies dysuria Musculoskeletal: Musculoskeletal: Reports deformity ( Left foot) and Denies numbness Integumentary/Breasts: Skin/Breast: Reports rash, Reports skin ulcer and Denies wounds Neurologic: Denies confusion, Denies headache(s), Denies focal weakness and Denies numbness Psychiatric: Psychiatric: Reports no additional psychiatric complaints and Denies confusion Endocrine: Endocrine: Reports no additional endocrine complaints Hematologic/Lymphatic: Hematologic/Lymphatic: Reports no additional hematologic/lymphatic complaints Allergic/Immunologic: Allergic/Immunologic: Reports no additional allergic/immunologic complaints [facility] Past Medical History Medical History CKD (chronic kidney disease) stage 3, GFR 30-59 ml/min Diabetic foot ulcer with osteomyelitis (~08/2020) Diabetic peripheral neuropathy Edema of lower extremity due to peripheral venous insufficiency Gastroesophageal reflux disease History of deep venous thrombosis (DVT) of distal vein of left lower extremity (~2005) History of osteomyelitis Lower extremity edema Peripheral arterial disease Type 2 diabetes mellitus Ulcer of left foot due to type 2 diabetes mellitus Uncontrolled type 2 diabetes mellitus Vaccine counseling Surgical History Surgical History Amputation of left midfoot (~2014) As treatment of osteomyelitis, done in [place]. History of transmetatarsal amputation of foot (~08/2020) Status post left foot surgery Patient reports multiple debridements for osteomyelitis of the left foot prior to mid foot amputation. Family History Family History Father Renal cell carcinoma Social History Social History Social History: The patient lives in his own home in [place]. He has a daughter who lives in [place]. 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 Lifelong nonsmoker. He has not consumed alcohol for 3 years. No drug use. He designates his daughter, Cassandra Montoya, as his surrogate decision maker and he wishes to be a full code. Smoking status: Never smoker Second hand tobacco smoke exposure: Yes Alcohol intake: current Alcohol use details: seldom Substance use: never Substance use type: does not use Lack of Transportation: No Lack of Food: Never True Current Housing: I Have Housing Concerned About Future Housing: No Difficulty Paying Gas/Electric Bills: No Difficulty Paying for Meds: No Currently Unemployed: No Education: Associate Degree Difficulty w/ Childcare or Family Care: No Living arrangements: alone Occupation/Education: retired Gender identity (if verbalized by the patient): Male Spiritual care concerns: No Agree to blood products: Yes Meds Home
--- NOTE | 2023-02-24 08:45 | PM.PNORT ---
Subjective Subjective Date/Time Seen: 02/24/23 08:45 Objective Data Meds/Results Medications: Active Medications Generic Name Dose Route Start Last Admin Trade Name Freq PRN Reason Stop Dose Admin Clotrimazole 1 applic 02/03/23 08:30 Betamethasone/Clotrimazole Cr 15 Gm Tube TOPICAL 05/05/23 23:55 PRN PRN Wound Care Silver Nitrate 1 applic 12/30/22 13:08 Silvergel (Elta) 45 Ml TOPICAL 04/01/23 23:55 PRN PRN Wound Care Wound Care/Dressing Products 1 each 12/30/22 13:09 Foam Bandage (Mepilex 4x4) Bandage TOPICAL 04/01/23 23:55 PRN PRN Wound Care
--- NOTE | 2023-02-24 08:45 | PM.IMHP ---
H&P: HPI History of Present Illness Date/Time: 02/24/23 08:45 Chief Complaint: Chronic Left diabetic foot ulcer, status post amputation Narrative: Patient reports continued improvement in swelling of the LLE. Continues with treatment for DVT. Wound on the plantar foot with no new changes or concerns. No new complaints today. Review of Systems Review of Systems: All systems reviewed & are unremarkable except as noted in HPI and below Constitutional: Constitutional: Reports no additional constitutional complaints, Denies chills, Denies fever(s) and Denies headache(s) Eyes: Eyes: Reports no additional eye complaints and Denies change in vision ENT: Denies headache(s) and Denies sore throat Cardiovascular: Cardiovascular: Denies chest pain and Denies dyspnea Respiratory: Respiratory: Reports chest congestion, Reports cough and Denies dyspnea Gastrointestinal: Gastrointestinal: Denies diarrhea, Denies nausea and Denies vomiting Genitourinary: Genitourinary: Denies dysuria Musculoskeletal: Musculoskeletal: Reports deformity ( Left foot) and Denies numbness Integumentary/Breasts: Skin/Breast: Reports rash, Reports skin ulcer and Denies wounds Neurologic: Denies confusion, Denies headache(s), Denies focal weakness and Denies numbness Psychiatric: Psychiatric: Reports no additional psychiatric complaints and Denies confusion Endocrine: Endocrine: Reports no additional endocrine complaints Hematologic/Lymphatic: Hematologic/Lymphatic: Reports no additional hematologic/lymphatic complaints Allergic/Immunologic: Allergic/Immunologic: Reports no additional allergic/immunologic complaints [facility] Past Medical History Medical History CKD (chronic kidney disease) stage 3, GFR 30-59 ml/min Diabetic foot ulcer with osteomyelitis (~08/2020) Diabetic peripheral neuropathy Edema of lower extremity due to peripheral venous insufficiency Gastroesophageal reflux disease History of deep venous thrombosis (DVT) of distal vein of left lower extremity (~2005) History of osteomyelitis Lower extremity edema Peripheral arterial disease Type 2 diabetes mellitus Ulcer of left foot due to type 2 diabetes mellitus Uncontrolled type 2 diabetes mellitus Vaccine counseling Surgical History Surgical History Amputation of left midfoot (~2014) As treatment of osteomyelitis, done in [place]. History of transmetatarsal amputation of foot (~08/2020) Status post left foot surgery Patient reports multiple debridements for osteomyelitis of the left foot prior to mid foot amputation. Family History Family History Father Renal cell carcinoma Social History Social History Social History: The patient lives in his own home in [place]. He has a daughter who lives in [place]. 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 Lifelong nonsmoker. He has not consumed alcohol for 3 years. No drug use. He designates his daughter, Cassandra Montoya, as his surrogate decision maker and he wishes to be a full code. Smoking status: Never smoker Second hand tobacco smoke exposure: Yes Alcohol intake: current Alcohol use details: seldom Substance use: never Substance use type: does not use Lack of Transportation: No Lack of Food: Never True Current Housing: I Have Housing Concerned About Future Housing: No Difficulty Paying Gas/Electric Bills: No Difficulty Paying for Meds: No Currently Unemployed: No Education: Associate Degree Difficulty w/ Childcare or Family Care: No Living arrangements: alone Occupation/Education: retired Gender identity (if verbalized by the patient): Male Spiritual care concerns: No Agree to blood products: Yes Meds Home
--- NOTE | 2023-03-17 08:56 | PM.IMHP ---
H&P: HPI History of Present Illness Date/Time: 03/17/23 08:56 Chief Complaint: Chronic Left diabetic foot ulcer, status post amputation Narrative: Patient reports continued improvement in swelling of the LLE. Continues with treatment for DVT. New doppler performed yesterday. Wound on the plantar foot with no new changes or concerns. No new complaints today. Review of Systems Review of Systems: All systems reviewed & are unremarkable except as noted in HPI and below Constitutional: Constitutional: Reports no additional constitutional complaints, Denies chills, Denies fever(s) and Denies headache(s) Eyes: Eyes: Reports no additional eye complaints and Denies change in vision ENT: Denies headache(s) and Denies sore throat Cardiovascular: Cardiovascular: Denies chest pain and Denies dyspnea Respiratory: Respiratory: Reports chest congestion, Reports cough and Denies dyspnea Gastrointestinal: Gastrointestinal: Denies diarrhea, Denies nausea and Denies vomiting Genitourinary: Genitourinary: Denies dysuria Musculoskeletal: Musculoskeletal: Reports deformity ( Left foot) and Denies numbness Integumentary/Breasts: Skin/Breast: Reports rash, Reports skin ulcer and Denies wounds Neurologic: Denies confusion, Denies headache(s), Denies focal weakness and Denies numbness Psychiatric: Psychiatric: Reports no additional psychiatric complaints and Denies confusion Endocrine: Endocrine: Reports no additional endocrine complaints Hematologic/Lymphatic: Hematologic/Lymphatic: Reports no additional hematologic/lymphatic complaints Allergic/Immunologic: Allergic/Immunologic: Reports no additional allergic/immunologic complaints [facility] Past Medical History Medical History CKD (chronic kidney disease) stage 3, GFR 30-59 ml/min Diabetic foot ulcer with osteomyelitis (~08/2020) Diabetic peripheral neuropathy Edema of lower extremity due to peripheral venous insufficiency Gastroesophageal reflux disease History of deep venous thrombosis (DVT) of distal vein of left lower extremity (~2005) History of osteomyelitis Lower extremity edema Peripheral arterial disease Type 2 diabetes mellitus Ulcer of left foot due to type 2 diabetes mellitus Uncontrolled type 2 diabetes mellitus Vaccine counseling Surgical History Surgical History Amputation of left midfoot (~2014) As treatment of osteomyelitis, done in [place]. History of transmetatarsal amputation of foot (~08/2020) Status post left foot surgery Patient reports multiple debridements for osteomyelitis of the left foot prior to mid foot amputation. Family History Family History Father Renal cell carcinoma Social History Social History Social History: The patient lives in his own home in [place]. He has a daughter who lives in [place]. 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 Lifelong nonsmoker. He has not consumed alcohol for 3 years. No drug use. He designates his daughter, Cassandra Montoya, as his surrogate decision maker and he wishes to be a full code. Smoking status: Never smoker Second hand tobacco smoke exposure: Yes Alcohol intake: current Alcohol use details: seldom Substance use: never Substance use type: does not use Lack of Transportation: No Lack of Food: Never True Current Housing: I Have Housing Concerned About Future Housing: No Difficulty Paying Gas/Electric Bills: No Difficulty Paying for Meds: No Currently Unemployed: No Education: Associate Degree Difficulty w/ Childcare or Family Care: No Living arrangements: alone Occupation/Education: retired Gender identity (if verbalized by the patient): Male Spiritual care concerns: No Agree to blood
== END 2023-03-30 23:59 | disposition home or self-care (01) ==
LOC: ANHWOC 07:16
PROVIDERS: PCP Family Medicine; Visit Provider Orthopaedic Surgery
DX: E11.621 Type 2 diabetes mellitus with foot ulcer (principal); L97.519 Non-pressure chronic ulcer of other part of right foot with unspecified severity; L97.529 Non-pressure chronic ulcer of other part of left foot with unspecified severity; N18.30 Chronic kidney disease, stage 3 unspecified; E11.22 Type 2 diabetes mellitus with diabetic chronic kidney disease; I82.502 Chronic embolism and thrombosis of unspecified deep veins of left lower extremity
CPT/HCPCS: 99213; A9270; G0463

== ENCOUNTER 2023-03-26 12:19 | Outpatient (CLI) | payer MEDICARE, BC, OTHER, SELFPAY ==
[2023-03-26 12:31] LABS: Basophils Percent Auto 0.5 % (0.2-1.2); Eosinophils Absolute Auto 0.2 K/mm3 (0-0.3); Eosinophils Percent Auto 2.8 % (0-4.4); Hematocrit 32.7 % (42.0-52.0); Hemoglobin 11.2 g/dL (14.0-18.0); Immature Granulocyte Absolute 0.03 K/mm3 (0.00-0.031); Immature Granulocyte Percent A 0.4 % (0-0.5); Lymphocytes Absolute Auto 1.92 K/mm3 (0.9-3.2); Lymphocytes Percent Auto 23.7 % (18.3-44.2); Mean Corpuscular HGB Conc 34.3 g/dl (32-36); Mean Corpuscular Hemoglobin 32.1 pg (26-34); Mean Corpuscular Volume 93.7 fl (80-100); Mean Platelet Volume 8.8 fl (7.4-10.4); Monocytes Absolute Auto 0.5 K/mm3 (0.1-0.6); Monocytes Percent Auto 6.4 % (2.6-8.5); Neutrophils Absolute Auto 5.4 K/mm3 (1.3-6.7); Neutrophils Percent Auto 66.2 % (45.5-73.1); Platelet Count Result 250 k/mm3 (150-375); Red Blood Count 3.49 M/mm3 (4.6-6.20); Red Cell Distribution Width 12.4 % (11.5-14.5); White Blood Count 8.1 K/mm3 (4.5-10.0)
[2023-03-26 16:36] LABS: Alanine Aminotransferase 20 U/L (6-50); Albumin Level 3.9 g/dL (3.5-5.1); Alkaline Phosphatase 93 U/L (38-126); Anion Gap 6 mmol/L (8-16); Aspartate Amino Transferase 24 U/L (17-59); Bilirubin,Total 0.6 mg/dL (0.2-1.3); Blood Urea Nitrogen 20 mg/dL (9-20); Calcium 9.1 mg/dL (8.4-10.2); Carbon Dioxide 28 mmol/L (22-30); Chloride 105 mmol/L (98-107); Estimated Glomerular Filt Rate 43; Glucose 81 mg/dL (65-110); Lactate Dehydrogenase 188 U/L (120-246); Potassium 4.3 mmol/L (3.4-5.0); Sodium 139 mmol/L (137-145)
== END 2023-03-26 12:20 | disposition home or self-care (01) ==
LOC: ANHLAB 12:19
PROVIDERS: PCP Family Medicine; Visit Provider Internal Medicine Hematology & Oncology
DX: I82.5Z2 Chronic embolism and thrombosis of unspecified deep veins of left distal lower extremity (principal)
CPT/HCPCS: 36415; 80053; 83615; 85025

== ENCOUNTER 2023-07-07 07:39 | Outpatient (RCR) | payer MEDICARE, BC, SELFPAY ==
[2023-03-31 00:03] VITALS: BMI 26.5
--- NOTE | 2023-04-14 09:18 | PM.IMHP ---
H&P: HPI History of Present Illness Date/Time: 04/14/23 09:18 Chief Complaint: Chronic Left diabetic foot ulcer, status post amputation Narrative: Patient reports continued improvement in swelling of the LLE. Continues with treatment for DVT. Wound on the plantar foot with no new changes or concerns. No new complaints today. Review of Systems Review of Systems: All systems reviewed & are unremarkable except as noted in HPI and below Constitutional: Constitutional: Reports no additional constitutional complaints, Denies chills, Denies fever(s) and Denies headache(s) Eyes: Eyes: Reports no additional eye complaints and Denies change in vision ENT: Denies headache(s) and Denies sore throat Cardiovascular: Cardiovascular: Denies chest pain and Denies dyspnea Respiratory: Respiratory: Reports chest congestion, Reports cough and Denies dyspnea Gastrointestinal: Gastrointestinal: Denies diarrhea, Denies nausea and Denies vomiting Genitourinary: Genitourinary: Denies dysuria Musculoskeletal: Musculoskeletal: Reports deformity ( Left foot) and Denies numbness Integumentary/Breasts: Skin/Breast: Reports rash, Reports skin ulcer and Denies wounds Neurologic: Denies confusion, Denies headache(s), Denies focal weakness and Denies numbness Psychiatric: Psychiatric: Reports no additional psychiatric complaints and Denies confusion Endocrine: Endocrine: Reports no additional endocrine complaints Hematologic/Lymphatic: Hematologic/Lymphatic: Reports no additional hematologic/lymphatic complaints Allergic/Immunologic: Allergic/Immunologic: Reports no additional allergic/immunologic complaints [facility] Past Medical History Medical History CKD (chronic kidney disease) stage 3, GFR 30-59 ml/min Diabetic foot ulcer with osteomyelitis (~08/2020) Diabetic peripheral neuropathy Edema of lower extremity due to peripheral venous insufficiency Gastroesophageal reflux disease History of deep venous thrombosis (DVT) of distal vein of left lower extremity (~2005) History of osteomyelitis Lower extremity edema Peripheral arterial disease Type 2 diabetes mellitus Ulcer of left foot due to type 2 diabetes mellitus Uncontrolled type 2 diabetes mellitus Vaccine counseling Surgical History Surgical History Amputation of left midfoot (~2014) As treatment of osteomyelitis, done in [place]. History of transmetatarsal amputation of foot (~08/2020) Status post left foot surgery Patient reports multiple debridements for osteomyelitis of the left foot prior to mid foot amputation. Family History Family History Father Renal cell carcinoma Social History Social History Social History: The patient lives in his own home in [place]. He has a daughter who lives in [place]. 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 Lifelong nonsmoker. He has not consumed alcohol for 3 years. No drug use. He designates his daughter, Cassandra Monotya, as his surrogate decision maker and he wishes to be a full code. Smoking status: Never smoker Second hand tobacco smoke exposure: Yes Alcohol intake: current Alcohol use details: seldom Substance use: never Substance use type: does not use Lack of Transportation: No Lack of Food: Never True Current Housing: I Have Housing Concerned About Future Housing: No Difficulty Paying Gas/Electric Bills: No Difficulty Paying for Meds: No Currently Unemployed: No Education: Associate Degree Difficulty w/ Childcare or Family Care: No Living arrangements: alone Occupation/Education: retired Gender identity (if verbalized by the patient): Male Spiritual care concerns: No Agree to blood products: Yes Meds
--- NOTE | 2023-05-05 08:46 | PM.PNORT ---
Progress Note: A&P Assessment and Plan (1) Ulcer of left foot due to type 2 diabetes mellitus: Code(s): E11.621 - Type 2 diabetes mellitus with foot ulcer; L97.529 - Non-pressure chronic ulcer of other part of left foot with unspecified severity Status: Acute Assessment and Plan: Left diabetic foot ulcer stable. continue with silver gel and Sun daily. Patient scheduled to have new shoes fabricated. Discussed blood sugar control and offloading. Follow up in 1 month for reassessment. (2) Uncontrolled type 2 diabetes mellitus: Qualifiers: Glycemic state: with hyperglycemia Qualified Code(s): E11.65 - Type 2 diabetes mellitus with hyperglycemia Code(s): E11.65 - Type 2 diabetes mellitus with hyperglycemia Status: Resolved (3) Diabetic peripheral neuropathy: Code(s): E11.42 - Type 2 diabetes mellitus with diabetic polyneuropathy Status: Acute Subjective Subjective Date/Time Seen: 05/05/23 08:46 Principal diagnosis: LT DFU Interval history: Patient presents for follow-up at the [facility] followup left foot. No interim complaints. In double upright brace with shoe. Denies fever, chills, systemic complaints Review of Systems Review of Systems: All systems reviewed & are unremarkable except as noted in HPI and below Constitutional: Constitutional: Reports no additional constitutional complaints, Denies chills, Denies fever(s) and Denies headache(s) Eyes: Eyes: Reports no additional eye complaints and Denies change in vision ENT: Denies headache(s) and Denies sore throat Cardiovascular: Cardiovascular: Denies chest pain and Denies dyspnea Respiratory: Respiratory: Reports chest congestion, Reports cough and Denies dyspnea Gastrointestinal: Gastrointestinal: Denies diarrhea, Denies nausea and Denies vomiting Genitourinary: Genitourinary: Denies dysuria Musculoskeletal: Musculoskeletal: Reports deformity ( Left foot) and Denies numbness Integumentary/Breasts: Skin/Breast: Reports rash, Reports skin ulcer and Denies wounds Neurologic: Denies confusion, Denies headache(s), Denies focal weakness and Denies numbness Psychiatric: Psychiatric: Reports no additional psychiatric complaints and Denies confusion Endocrine: Endocrine: Reports no additional endocrine complaints Hematologic/Lymphatic: Hematologic/Lymphatic: Reports no additional hematologic/lymphatic complaints Allergic/Immunologic: Allergic/Immunologic: Reports no additional allergic/immunologic complaints Exam Const: General: healthy appearing and average body habitus; No in distress or confusion Orientation/consciousness: patient oriented x3 and No confusion Extrem: General: amputation noted Transmetatarsal: left Right lower extremity: foot Left lower extremity: lower leg Details: pitting edema Details: 2+, ankle Details: abnormal to inspection (deformity, inversion. Minimal ROM of ankle. ) and foot Details: motor-sensory exam two point discrimination abnormal and light-touch abnormal; no tenderness, ROM of toes abnormal, ROM of toes normal and no unusual warmth Other: Midfoot ulcer-plantar lateral aspect of the midfoot 2.8x1.4x0. cm. Unable to probe to bone. No signs of active infection. No surrounding cellulitis. No erythema or warmth. No devitalized skin, subcutaneous tissue muscle noted surrounding the wound. No Callus bottom foot and heel. Previous midfoot amputation noted. Left leg edema. Psych: Appearance: grossly normal Mental Status: mental status grossly normal Affect: normal affect [facility]illing [facility] Follow-up Hospital Follow-up: [id number] [facility] Pt Lvl 3
--- NOTE | 2023-06-02 09:33 | W.PM.PROC2 ---
Procedure Note - Detailed Date of Procedure 06/02/23 Pre-op Diagnosis left foot diabetic ulcer Post-op Diagnosis Same Procedure Performed excisional debridement left foot to muscle Surgeon Vini Ponce MD Anesthesia None Indications 68 with peripheral neuropathy and diabetes. Left plantar diabetic foot ulcer with devitalized tissue. Findings 3 x 2 cm ulcer with devitalized surrounding tissue Description of Procedure informed consent given. Alcohol prep solution. 15 blade knife used to sharply excise skin, subcutaneous tissue, muscle from the left plantar foot ulcer. Debridement proceeded to viable tissue. Ulcer measured 3 x 2 cm with 5 mm depth. Hemostasis controlled with silver nitrate. Sterile dressing applied. Estimated Blood Loss 1 Drains No Packing Yes Pathology None sent Complications None Condition Stable Disposition No change [facility] Billing Surgery - Charge Forward: Surgery Billing ([id number])
--- NOTE | 2023-06-02 09:36 | PM.IMHP ---
H&P: HPI History of Present Illness Date/Time: 06/02/23 09:36 Chief Complaint: left diabetic foot ulcer Narrative: patient returns to [facility] for left foot. Ulcer plantar left foot. continues with Sun, silver gel and foam. Noted increased devitalized skin around the wound. Still waiting new shoe and brace. Review of Systems Review of Systems: All systems reviewed & are unremarkable except as noted in HPI and below Constitutional: Constitutional: Reports no additional constitutional complaints, Denies chills, Denies fever(s) and Denies headache(s) Eyes: Eyes: Reports no additional eye complaints and Denies change in vision ENT: Denies headache(s) and Denies sore throat Cardiovascular: Cardiovascular: Denies chest pain and Denies dyspnea Respiratory: Respiratory: Reports chest congestion, Reports cough and Denies dyspnea Gastrointestinal: Gastrointestinal: Denies diarrhea, Denies nausea and Denies vomiting Genitourinary: Genitourinary: Denies dysuria Musculoskeletal: Musculoskeletal: Reports deformity ( Left foot) and Denies numbness Integumentary/Breasts: Skin/Breast: Reports rash, Reports skin ulcer and Denies wounds Neurologic: Denies confusion, Denies headache(s), Denies focal weakness and Denies numbness Psychiatric: Psychiatric: Reports no additional psychiatric complaints and Denies confusion Endocrine: Endocrine: Reports no additional endocrine complaints Hematologic/Lymphatic: Hematologic/Lymphatic: Reports no additional hematologic/lymphatic complaints Allergic/Immunologic: Allergic/Immunologic: Reports no additional allergic/immunologic complaints [facility] Past Medical History Medical History CKD (chronic kidney disease) stage 3, GFR 30-59 ml/min Diabetic foot ulcer with osteomyelitis (~08/2020) Diabetic peripheral neuropathy Edema of lower extremity due to peripheral venous insufficiency Gastroesophageal reflux disease History of deep venous thrombosis (DVT) of distal vein of left lower extremity (~2005) History of osteomyelitis Lower extremity edema Peripheral arterial disease Type 2 diabetes mellitus Ulcer of left foot due to type 2 diabetes mellitus Uncontrolled type 2 diabetes mellitus Vaccine counseling Surgical History Surgical History Amputation of left midfoot (~2014) As treatment of osteomyelitis, done in [place]. History of transmetatarsal amputation of foot (~08/2020) Status post left foot surgery Patient reports multiple debridements for osteomyelitis of the left foot prior to mid foot amputation. Family History Family History Father Renal cell carcinoma Social History Social History Social History: The patient lives in his own home in [place]. He has a daughter who lives in [place]. 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 Lifelong nonsmoker. He has not consumed alcohol for 3 years. No drug use. He designates his daughter, Cassandra Montoya, as his surrogate decision maker and he wishes to be a full code. Smoking status: Never smoker Second hand tobacco smoke exposure: Yes Alcohol intake: current Alcohol use details: seldom Substance use: never Substance use type: does not use Lack of Transportation: No Lack of Food: Never True Current Housing: I Have Housing Concerned About Future Housing: No Difficulty Paying Gas/Electric Bills: No Difficulty Paying for Meds: No Currently Unemployed: No Education: Associate Degree Difficulty w/ Childcare or Family Care: No Living arrangements: alone Occupation/Education: retired Gender identity (if verbalized by the patient): Male Spiritual care concerns: No Agree to blood p
--- NOTE | 2023-07-07 08:50 | PM.IMHP ---
H&P: HPI History of Present Illness Date/Time: 07/07/23 08:50 Chief Complaint: Left diabetic foot ulcer Narrative: Patient returns to [facility] for left foot. Ulcer plantar left foot. continues with Sun, silver gel and foam. No interim complaints. Still waiting new shoe and brace. scheduled next month for new brace, scheduled this week for re-evaluation blood clot Review of Systems Review of Systems: All systems reviewed & are unremarkable except as noted in HPI and below Constitutional: Constitutional: Reports no additional constitutional complaints, Denies chills, Denies fever(s) and Denies headache(s) Eyes: Eyes: Reports no additional eye complaints and Denies change in vision ENT: Denies headache(s) and Denies sore throat Cardiovascular: Cardiovascular: Denies chest pain and Denies dyspnea Respiratory: Respiratory: Reports chest congestion, Reports cough and Denies dyspnea Gastrointestinal: Gastrointestinal: Denies diarrhea, Denies nausea and Denies vomiting Genitourinary: Genitourinary: Denies dysuria Musculoskeletal: Musculoskeletal: Reports deformity ( Left foot) and Denies numbness Integumentary/Breasts: Skin/Breast: Reports rash, Reports skin ulcer and Denies wounds Neurologic: Denies confusion, Denies headache(s), Denies focal weakness and Denies numbness Psychiatric: Psychiatric: Reports no additional psychiatric complaints and Denies confusion Endocrine: Endocrine: Reports no additional endocrine complaints Hematologic/Lymphatic: Hematologic/Lymphatic: Reports no additional hematologic/lymphatic complaints Allergic/Immunologic: Allergic/Immunologic: Reports no additional allergic/immunologic complaints [facility] Past Medical History Medical History CKD (chronic kidney disease) stage 3, GFR 30-59 ml/min Diabetic foot ulcer with osteomyelitis (~08/2020) Diabetic peripheral neuropathy Edema of lower extremity due to peripheral venous insufficiency Gastroesophageal reflux disease History of deep venous thrombosis (DVT) of distal vein of left lower extremity (~2005) History of osteomyelitis Lower extremity edema Peripheral arterial disease Type 2 diabetes mellitus Ulcer of left foot due to type 2 diabetes mellitus Uncontrolled type 2 diabetes mellitus Vaccine counseling Surgical History Surgical History Amputation of left midfoot (~2014) As treatment of osteomyelitis, done in [place]. History of transmetatarsal amputation of foot (~08/2020) Status post left foot surgery Patient reports multiple debridements for osteomyelitis of the left foot prior to mid foot amputation. Family History Family History Father Renal cell carcinoma Social History Social History Social History: The patient lives in his own home in [place]. He has a daughter who lives in [place]. 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 Lifelong nonsmoker. He has not consumed alcohol for 3 years. No drug use. He designates his daughter, Cassandra Montoya, as his surrogate decision maker and he wishes to be a full code. Smoking status: Never smoker Second hand tobacco smoke exposure: Yes Alcohol intake: current Alcohol use details: seldom Substance use: never Substance use type: does not use Lack of Transportation: No Lack of Food: Never True Current Housing: I Have Housing Concerned About Future Housing: No Difficulty Paying Gas/Electric Bills: No Difficulty Paying for Meds: No Currently Unemployed: No Education: Associate Degree Difficulty w/ Childcare or Family Care: No Living arrangements: alone Occupation/Education: retired Gender identity (if verbalized by the patient): M
== END 2023-07-13 23:59 | disposition home or self-care (01) ==
LOC: ANHWOC 07:39
PROVIDERS: PCP Family Medicine; Visit Provider Orthopaedic Surgery
DX: E11.621 Type 2 diabetes mellitus with foot ulcer (principal); L97.519 Non-pressure chronic ulcer of other part of right foot with unspecified severity; L97.529 Non-pressure chronic ulcer of other part of left foot with unspecified severity
CPT/HCPCS: 99213; 99214; G0463

== ENCOUNTER 2023-07-08 11:10 | Outpatient (CLI) | payer MEDICARE, BC, SELFPAY ==
[2023-07-08 11:30] LABS: Basophils Percent Auto 0.4 % (0.2-1.2); Eosinophils Absolute Auto 0.2 K/mm3 (0-0.3); Eosinophils Percent Auto 2.3 % (0-4.4); Hematocrit 32.1 % (42.0-52.0); Hemoglobin 10.8 g/dL (14.0-18.0); Immature Granulocyte Absolute 0.01 K/mm3 (0.00-0.031); Immature Granulocyte Percent A 0.1 % (0-0.5); Lymphocytes Absolute Auto 1.55 K/mm3 (0.9-3.2); Lymphocytes Percent Auto 21.9 % (18.3-44.2); Mean Corpuscular HGB Conc 33.6 g/dl (32-36); Mean Corpuscular Hemoglobin 31.7 pg (26-34); Mean Corpuscular Volume 94.1 fl (80-100); Mean Platelet Volume 8.9 fl (7.4-10.4); Monocytes Absolute Auto 0.5 K/mm3 (0.1-0.6); Monocytes Percent Auto 6.9 % (2.6-8.5); Neutrophils Absolute Auto 4.8 K/mm3 (1.3-6.7); Neutrophils Percent Auto 68.4 % (45.5-73.1); Platelet Count Result 200 k/mm3 (150-375); Red Blood Count 3.41 M/mm3 (4.6-6.20); White Blood Count 7.1 K/mm3 (4.5-10.0)
[2023-07-08 16:26] LABS: Iron 85 ug/dL (49-181)
[2023-07-08 16:32] LABS: Anion Gap 5 mmol/L (8-16); Blood Urea Nitrogen 21 mg/dL (9-20); Calcium 8.8 mg/dL (8.4-10.2); Carbon Dioxide 25 mmol/L (22-30); Chloride 108 mmol/L (98-107); Estimated Glomerular Filt Rate 55; Glucose 140 mg/dL (65-110); Potassium 4.1 mmol/L (3.4-5.0); Sodium 138 mmol/L (137-145)
[2023-07-08 16:35] LABS: Percent Iron Saturation 33 % (20-50)
[2023-07-08 17:41] LABS: Folic Acid 10.4 ng/mL (2.76->20)
== END 2023-07-08 11:11 | disposition home or self-care (01) ==
LOC: ANHLAB 11:10
PROVIDERS: PCP Family Medicine; Visit Provider Internal Medicine Hematology & Oncology
DX: D64.9 Anemia, unspecified (principal)
CPT/HCPCS: 36415; 80048; 82607; 82728; 82746; 83540; 83550; 85025

== ENCOUNTER 2023-10-27 07:33 | Outpatient (RCR) | payer MEDICARE, BC, OTHER, SELFPAY ==
[2023-07-14 00:03] VITALS: BMI 26.5
--- NOTE | 2023-08-04 09:35 | PM.IMHP ---
H&P: HPI History of Present Illness Date/Time: 08/04/23 09:35 Chief Complaint: Left diabetic foot ulcer Narrative: Patient returns to [facility] for left foot. Ulcer plantar left foot. continues with Sun, silver gel and foam. No interim complaints. Still waiting new shoe and brace. Review of Systems Review of Systems: All systems reviewed & are unremarkable except as noted in HPI and below Constitutional: Constitutional: Reports no additional constitutional complaints, Denies chills, Denies fever(s) and Denies headache(s) Eyes: Eyes: Reports no additional eye complaints and Denies change in vision ENT: Denies headache(s) and Denies sore throat Cardiovascular: Cardiovascular: Denies chest pain and Denies dyspnea Respiratory: Respiratory: Reports chest congestion, Reports cough and Denies dyspnea Gastrointestinal: Gastrointestinal: Denies diarrhea, Denies nausea and Denies vomiting Genitourinary: Genitourinary: Denies dysuria Musculoskeletal: Musculoskeletal: Reports deformity ( Left foot) and Denies numbness Integumentary/Breasts: Skin/Breast: Reports rash, Reports skin ulcer and Denies wounds Neurologic: Denies confusion, Denies headache(s), Denies focal weakness and Denies numbness Psychiatric: Psychiatric: Reports no additional psychiatric complaints and Denies confusion Endocrine: Endocrine: Reports no additional endocrine complaints Hematologic/Lymphatic: Hematologic/Lymphatic: Reports no additional hematologic/lymphatic complaints Allergic/Immunologic: Allergic/Immunologic: Reports no additional allergic/immunologic complaints [facility] Past Medical History Medical History CKD (chronic kidney disease) stage 3, GFR 30-59 ml/min Diabetic foot ulcer with osteomyelitis (~08/2020) Diabetic peripheral neuropathy Edema of lower extremity due to peripheral venous insufficiency Gastroesophageal reflux disease History of deep venous thrombosis (DVT) of distal vein of left lower extremity (~2005) History of osteomyelitis Lower extremity edema Peripheral arterial disease Type 2 diabetes mellitus Ulcer of left foot due to type 2 diabetes mellitus Uncontrolled type 2 diabetes mellitus Vaccine counseling Surgical History Surgical History Amputation of left midfoot (~2014) As treatment of osteomyelitis, done in [place]. History of transmetatarsal amputation of foot (~08/2020) Status post left foot surgery Patient reports multiple debridements for osteomyelitis of the left foot prior to mid foot amputation. Family History Family History Father Renal cell carcinoma Social History Social History Social History: The patient lives in his own home in [place]. He has a daughter who lives in [place]. 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 Lifelong nonsmoker. He has not consumed alcohol for 3 years. No drug use. He designates his daughter, Cassandra Montoya, as his surrogate decision maker and he wishes to be a full code. Smoking status: Never smoker Second hand tobacco smoke exposure: Yes Alcohol intake: current Alcohol use details: seldom Substance use: never Substance use type: does not use Lack of Transportation: No Lack of Food: Never True Current Housing: I Have Housing Concerned About Future Housing: No Difficulty Paying Gas/Electric Bills: No Difficulty Paying for Meds: No Currently Unemployed: No Education: Associate Degree Difficulty w/ Childcare or Family Care: No Living arrangements: alone Occupation/Education: retired Gender identity (if verbalized by the patient): Male Spiritual care concerns: No Agree to blood products: Yes Meds Home Me
--- NOTE | 2023-08-18 09:19 | PM.IMHP ---
H&P: HPI History of Present Illness Date/Time: 08/18/23 09:19 Chief Complaint: Left diabetic foot ulcer Narrative: Patient returns to [facility] for left foot. Ulcer plantar left foot. Continues with Sun, silver gel and foam. No interim complaints. Review of Systems Review of Systems: All systems reviewed & are unremarkable except as noted in HPI and below Constitutional: Constitutional: Reports no additional constitutional complaints, Denies chills, Denies fever(s) and Denies headache(s) Eyes: Eyes: Reports no additional eye complaints and Denies change in vision ENT: Denies headache(s) and Denies sore throat Cardiovascular: Cardiovascular: Denies chest pain and Denies dyspnea Respiratory: Respiratory: Reports chest congestion, Reports cough and Denies dyspnea Gastrointestinal: Gastrointestinal: Denies diarrhea, Denies nausea and Denies vomiting Genitourinary: Genitourinary: Denies dysuria Musculoskeletal: Musculoskeletal: Reports deformity ( Left foot) and Denies numbness Integumentary/Breasts: Skin/Breast: Reports rash, Reports skin ulcer and Denies wounds Neurologic: Denies confusion, Denies headache(s), Denies focal weakness and Denies numbness Psychiatric: Psychiatric: Reports no additional psychiatric complaints and Denies confusion Endocrine: Endocrine: Reports no additional endocrine complaints Hematologic/Lymphatic: Hematologic/Lymphatic: Reports no additional hematologic/lymphatic complaints Allergic/Immunologic: Allergic/Immunologic: Reports no additional allergic/immunologic complaints [facility] Past Medical History Medical History CKD (chronic kidney disease) stage 3, GFR 30-59 ml/min Diabetic foot ulcer with osteomyelitis (~08/2020) Diabetic peripheral neuropathy Edema of lower extremity due to peripheral venous insufficiency Gastroesophageal reflux disease History of deep venous thrombosis (DVT) of distal vein of left lower extremity (~2005) History of osteomyelitis Lower extremity edema Peripheral arterial disease Type 2 diabetes mellitus Ulcer of left foot due to type 2 diabetes mellitus Uncontrolled type 2 diabetes mellitus Vaccine counseling Surgical History Surgical History Amputation of left midfoot (~2014) As treatment of osteomyelitis, done in [place]. History of transmetatarsal amputation of foot (~08/2020) Status post left foot surgery Patient reports multiple debridements for osteomyelitis of the left foot prior to mid foot amputation. Family History Family History Father Renal cell carcinoma Social History Social History Social History: The patient lives in his own home in [place]. He has a daughter who lives in [place]. 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 Lifelong nonsmoker. He has not consumed alcohol for 3 years. No drug use. He designates his daughter, Cassandra Montoya, as his surrogate decision maker and he wishes to be a full code. Smoking status: Never smoker Second hand tobacco smoke exposure: Yes Alcohol intake: current Alcohol use details: seldom Substance use: never Substance use type: does not use Lack of Transportation: No Lack of Food: Never True Current Housing: I Have Housing Concerned About Future Housing: No Difficulty Paying Gas/Electric Bills: No Difficulty Paying for Meds: No Currently Unemployed: No Education: Associate Degree Difficulty w/ Childcare or Family Care: No Living arrangements: alone Occupation/Education: retired Gender identity (if verbalized by the patient): Male Spiritual care concerns: No Agree to blood products: Yes Meds Home Medications and Allergies Home Medic
--- NOTE | 2023-09-01 10:34 | PM.IMHP ---
H&P: HPI History of Present Illness Date/Time: 09/01/23 10:34 Chief Complaint: Left diabetic foot ulcer Narrative: Patient returns to [facility] for left foot. 2 weeks s/p graft application to ulcer plantar left foot. Continues with Sun, silver gel and foam. No interim complaints. Review of Systems Review of Systems: All systems reviewed & are unremarkable except as noted in HPI and below Constitutional: Constitutional: Reports no additional constitutional complaints, Denies chills, Denies fever(s) and Denies headache(s) Eyes: Eyes: Reports no additional eye complaints and Denies change in vision ENT: Denies headache(s) and Denies sore throat Cardiovascular: Cardiovascular: Denies chest pain and Denies dyspnea Respiratory: Respiratory: Reports chest congestion, Reports cough and Denies dyspnea Gastrointestinal: Gastrointestinal: Denies diarrhea, Denies nausea and Denies vomiting Genitourinary: Genitourinary: Denies dysuria Musculoskeletal: Musculoskeletal: Reports deformity ( Left foot) and Denies numbness Integumentary/Breasts: Skin/Breast: Reports rash, Reports skin ulcer and Denies wounds Neurologic: Denies confusion, Denies headache(s), Denies focal weakness and Denies numbness Psychiatric: Psychiatric: Reports no additional psychiatric complaints and Denies confusion Endocrine: Endocrine: Reports no additional endocrine complaints Hematologic/Lymphatic: Hematologic/Lymphatic: Reports no additional hematologic/lymphatic complaints Allergic/Immunologic: Allergic/Immunologic: Reports no additional allergic/immunologic complaints [facility] Past Medical History Medical History CKD (chronic kidney disease) stage 3, GFR 30-59 ml/min Diabetic foot ulcer with osteomyelitis (~08/2020) Diabetic peripheral neuropathy Edema of lower extremity due to peripheral venous insufficiency Gastroesophageal reflux disease History of deep venous thrombosis (DVT) of distal vein of left lower extremity (~2005) History of osteomyelitis Lower extremity edema Peripheral arterial disease Type 2 diabetes mellitus Ulcer of left foot due to type 2 diabetes mellitus Uncontrolled type 2 diabetes mellitus Vaccine counseling Surgical History Surgical History Amputation of left midfoot (~2014) As treatment of osteomyelitis, done in [place]. History of transmetatarsal amputation of foot (~08/2020) Status post left foot surgery Patient reports multiple debridements for osteomyelitis of the left foot prior to mid foot amputation. Family History Family History Father Renal cell carcinoma Social History Social History Social History: The patient lives in his own home in [place]. He has a daughter who lives in [place]. 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 Lifelong nonsmoker. He has not consumed alcohol for 3 years. No drug use. He designates his daughter, Cassandra Montoya, as his surrogate decision maker and he wishes to be a full code. Smoking status: Never smoker Second hand tobacco smoke exposure: Yes Alcohol intake: current Alcohol use details: seldom Substance use: never Substance use type: does not use Lack of Transportation: No Lack of Food: Never True Current Housing: I Have Housing Concerned About Future Housing: No Difficulty Paying Gas/Electric Bills: No Difficulty Paying for Meds: No Currently Unemployed: No Education: Associate Degree Difficulty w/ Childcare or Family Care: No Living arrangements: alone Occupation/Education: retired Gender identity (if verbalized by the patient): Male Spiritual care concerns: No Agree to blood products: Yes Meds Home Medic
--- NOTE | 2023-09-15 08:32 | PM.IMHP ---
H&P: HPI History of Present Illness Date/Time: 09/15/23 08:32 Chief Complaint: Left diabetic foot ulcer Narrative: Patient returns to [facility] for left foot. 2 weeks s/p graft application to ulcer plantar left foot. Continues with Sun, silver gel and foam. No interim complaints. Review of Systems Review of Systems: All systems reviewed & are unremarkable except as noted in HPI and below Constitutional: Constitutional: Reports no additional constitutional complaints, Denies chills, Denies fever(s) and Denies headache(s) Eyes: Eyes: Reports no additional eye complaints and Denies change in vision ENT: Denies headache(s) and Denies sore throat Cardiovascular: Cardiovascular: Denies chest pain and Denies dyspnea Respiratory: Respiratory: Reports chest congestion, Reports cough and Denies dyspnea Gastrointestinal: Gastrointestinal: Denies diarrhea, Denies nausea and Denies vomiting Genitourinary: Genitourinary: Denies dysuria Musculoskeletal: Musculoskeletal: Reports deformity ( Left foot) and Denies numbness Integumentary/Breasts: Skin/Breast: Reports rash, Reports skin ulcer and Denies wounds Neurologic: Denies confusion, Denies headache(s), Denies focal weakness and Denies numbness Psychiatric: Psychiatric: Reports no additional psychiatric complaints and Denies confusion Endocrine: Endocrine: Reports no additional endocrine complaints Hematologic/Lymphatic: Hematologic/Lymphatic: Reports no additional hematologic/lymphatic complaints Allergic/Immunologic: Allergic/Immunologic: Reports no additional allergic/immunologic complaints [facility] Past Medical History Medical History CKD (chronic kidney disease) stage 3, GFR 30-59 ml/min Diabetic foot ulcer with osteomyelitis (~08/2020) Diabetic peripheral neuropathy Edema of lower extremity due to peripheral venous insufficiency Gastroesophageal reflux disease History of deep venous thrombosis (DVT) of distal vein of left lower extremity (~2005) History of osteomyelitis Lower extremity edema Peripheral arterial disease Type 2 diabetes mellitus Ulcer of left foot due to type 2 diabetes mellitus Uncontrolled type 2 diabetes mellitus Vaccine counseling Surgical History Surgical History Amputation of left midfoot (~2014) As treatment of osteomyelitis, done in [place]. History of transmetatarsal amputation of foot (~08/2020) Status post left foot surgery Patient reports multiple debridements for osteomyelitis of the left foot prior to mid foot amputation. Family History Family History Father Renal cell carcinoma Social History Social History Social History: The patient lives in his own home in [place]. He has a daughter who lives in [place]. 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 Lifelong nonsmoker. He has not consumed alcohol for 3 years. No drug use. He designates his daughter, Cassandra Montoya, as his surrogate decision maker and he wishes to be a full code. Smoking status: Never smoker Second hand tobacco smoke exposure: Yes Alcohol intake: current Alcohol use details: seldom Substance use: never Substance use type: does not use Lack of Transportation: No Lack of Food: Never True Current Housing: I Have Housing Concerned About Future Housing: No Difficulty Paying Gas/Electric Bills: No Difficulty Paying for Meds: No Currently Unemployed: No Education: Associate Degree Difficulty w/ Childcare or Family Care: No Living arrangements: alone Occupation/Education: retired Gender identity (if verbalized by the patient): Male Spiritual care concerns: No Agree to blood products: Yes Meds Home Medic
--- NOTE | 2023-09-29 08:57 | P.PNOP_ITS ---
Subjective Subjective Date/Time Seen: 09/29/23 08:57
--- NOTE | 2023-09-29 08:57 | PM.PNORT ---
Subjective Subjective Date/Time Seen: 09/29/23 08:57
--- NOTE | 2023-09-29 08:58 | PM.IMHP ---
H&P: HPI History of Present Illness Date/Time: 09/29/23 08:58 Chief Complaint: Left diabetic foot ulcer Narrative: Patient returns to [facility] for left foot. 2 weeks s/p graft application to ulcer plantar left foot. Continues with Sun, silver gel and foam in the interim. No interim complaints. Review of Systems Review of Systems: All systems reviewed & are unremarkable except as noted in HPI and below Constitutional: Constitutional: Reports no additional constitutional complaints, Denies chills, Denies fever(s) and Denies headache(s) Eyes: Eyes: Reports no additional eye complaints and Denies change in vision ENT: Denies headache(s) and Denies sore throat Cardiovascular: Cardiovascular: Denies chest pain and Denies dyspnea Respiratory: Respiratory: Reports chest congestion, Reports cough and Denies dyspnea Gastrointestinal: Gastrointestinal: Denies diarrhea, Denies nausea and Denies vomiting Genitourinary: Genitourinary: Denies dysuria Musculoskeletal: Musculoskeletal: Reports deformity ( Left foot) and Denies numbness Integumentary/Breasts: Skin/Breast: Reports rash, Reports skin ulcer and Denies wounds Neurologic: Denies confusion, Denies headache(s), Denies focal weakness and Denies numbness Psychiatric: Psychiatric: Reports no additional psychiatric complaints and Denies confusion Endocrine: Endocrine: Reports no additional endocrine complaints Hematologic/Lymphatic: Hematologic/Lymphatic: Reports no additional hematologic/lymphatic complaints Allergic/Immunologic: Allergic/Immunologic: Reports no additional allergic/immunologic complaints [facility] Past Medical History Medical History CKD (chronic kidney disease) stage 3, GFR 30-59 ml/min Diabetic foot ulcer with osteomyelitis (~08/2020) Diabetic peripheral neuropathy Edema of lower extremity due to peripheral venous insufficiency Gastroesophageal reflux disease History of deep venous thrombosis (DVT) of distal vein of left lower extremity (~2005) History of osteomyelitis Lower extremity edema Peripheral arterial disease Type 2 diabetes mellitus Ulcer of left foot due to type 2 diabetes mellitus Uncontrolled type 2 diabetes mellitus Vaccine counseling Surgical History Surgical History Amputation of left midfoot (~2014) As treatment of osteomyelitis, done in [place]. History of transmetatarsal amputation of foot (~08/2020) Status post left foot surgery Patient reports multiple debridements for osteomyelitis of the left foot prior to mid foot amputation. Family History Family History Father Renal cell carcinoma Social History Social History Social History: The patient lives in his own home in [place]. He has a daughter who lives in [place]. 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 Lifelong nonsmoker. He has not consumed alcohol for 3 years. No drug use. He designates his daughter, Cassandra Montoya, as his surrogate decision maker and he wishes to be a full code. Smoking status: Never smoker Second hand tobacco smoke exposure: Yes Alcohol intake: current Alcohol use details: seldom Substance use: never Substance use type: does not use Lack of Transportation: No Lack of Food: Never True Current Housing: I Have Housing Concerned About Future Housing: No Difficulty Paying Gas/Electric Bills: No Difficulty Paying for Meds: No Currently Unemployed: No Education: Associate Degree Difficulty w/ Childcare or Family Care: No Living arrangements: alone Occupation/Education: retired Gender identity (if verbalized by the patient): Male Spiritual care concerns: No Agree to blood products: Yes M
--- NOTE | 2023-10-13 09:36 | PM.PNORT ---
Progress Note: A&P Assessment and Plan (1) Ulcer of left foot due to type 2 diabetes mellitus: Code(s): E11.621 - Type 2 diabetes mellitus with foot ulcer; L97.529 - Non-pressure chronic ulcer of other part of left foot with unspecified severity Status: Acute Assessment and Plan: Discussed nonoperative and operative treatment options with the patient. Risks and benefits of each as well as alternatives were reviewed. All of the patient's questions were answered. Patient indicated for repeat graft application. Graft applied under sterile conditions. Tolerated well. Keep dressing in place until Thursday. Then begin daily dressing changes again. Follow up in 2 weeks for repeat graft application. (2) Uncontrolled type 2 diabetes mellitus: Qualifiers: Glycemic state: with hyperglycemia Qualified Code(s): E11.65 - Type 2 diabetes mellitus with hyperglycemia Code(s): E11.65 - Type 2 diabetes mellitus with hyperglycemia Status: Resolved (3) Diabetic peripheral neuropathy: Code(s): E11.42 - Type 2 diabetes mellitus with diabetic polyneuropathy Status: Acute (4) History of transmetatarsal amputation of foot: Onset Date: ~08/2020 Code(s): Z89.439 - Acquired absence of unspecified foot Status: Acute Assessment and Plan: New brace in place. Patient tolerating well. (5) Chronic deep vein thrombosis (DVT) of left lower extremity: Qualifiers: Affected thrombotic vein of extremity: femoral Qualified Code(s): I82.512 - Chronic embolism and thrombosis of left femoral vein Code(s): I82.502 - Chronic embolism and thrombosis of unspecified deep veins of left lower extremity Status: Acute Subjective Subjective Date/Time Seen: 10/13/23 09:36 Principal diagnosis: LT DFU Interval history: Patient presents for follow-up at the [facility] followup left foot. No interim complaints. In double upright brace with shoe. Denies fever, chills, systemic complaints Review of Systems Review of Systems: All systems reviewed & are unremarkable except as noted in HPI and below Constitutional: Constitutional: Reports no additional constitutional complaints, Denies chills, Denies fever(s) and Denies headache(s) Eyes: Eyes: Reports no additional eye complaints and Denies change in vision ENT: Denies headache(s) and Denies sore throat Cardiovascular: Cardiovascular: Denies chest pain and Denies dyspnea Respiratory: Respiratory: Reports chest congestion, Reports cough and Denies dyspnea Gastrointestinal: Gastrointestinal: Denies diarrhea, Denies nausea and Denies vomiting Genitourinary: Genitourinary: Denies dysuria Musculoskeletal: Musculoskeletal: Reports deformity ( Left foot) and Denies numbness Integumentary/Breasts: Skin/Breast: Reports rash, Reports skin ulcer and Denies wounds Neurologic: Denies confusion, Denies headache(s), Denies focal weakness and Denies numbness Psychiatric: Psychiatric: Reports no additional psychiatric complaints and Denies confusion Endocrine: Endocrine: Reports no additional endocrine complaints Hematologic/Lymphatic: Hematologic/Lymphatic: Reports no additional hematologic/lymphatic complaints Allergic/Immunologic: Allergic/Immunologic: Reports no additional allergic/immunologic complaints Exam Const: General: healthy appearing and average body habitus; No in distress or confusion Orientation/consciousness: patient oriented x3 and No confusion Extrem: General: amputation noted Transmetatarsal: left Right lower extremity: foot Left lower extremity: lower leg Details: pitting edema Details: 2+, ankle Details: abnormal to inspection (deformity, inversion. Minimal ROM of ankle. ) and foot Details: motor-sensory exam two point discrimination abnormal and light-touch abnormal; no tenderness, ROM of toes abnormal, ROM of toes normal and no unusual warmth Other: Midfoot ulcer-plantar lateral aspe
--- NOTE | 2023-10-27 09:18 | PM.IMHP ---
H&P: HPI History of Present Illness Date/Time: 10/27/23 09:18 Chief Complaint: Left diabetic foot ulcer Narrative: Patient returns to [facility] for left foot. 2 weeks s/p graft application to ulcer plantar left foot. Continues with Sun, silver gel and foam in the interim. No interim complaints. Review of Systems Review of Systems: All systems reviewed & are unremarkable except as noted in HPI and below Constitutional: Constitutional: Reports no additional constitutional complaints, Denies chills, Denies fever(s) and Denies headache(s) Eyes: Eyes: Reports no additional eye complaints and Denies change in vision ENT: Denies headache(s) and Denies sore throat Cardiovascular: Cardiovascular: Denies chest pain and Denies dyspnea Respiratory: Respiratory: Reports chest congestion, Reports cough and Denies dyspnea Gastrointestinal: Gastrointestinal: Denies diarrhea, Denies nausea and Denies vomiting Genitourinary: Genitourinary: Denies dysuria Musculoskeletal: Musculoskeletal: Reports deformity ( Left foot) and Denies numbness Integumentary/Breasts: Skin/Breast: Reports rash, Reports skin ulcer and Denies wounds Neurologic: Denies confusion, Denies headache(s), Denies focal weakness and Denies numbness Psychiatric: Psychiatric: Reports no additional psychiatric complaints and Denies confusion Endocrine: Endocrine: Reports no additional endocrine complaints Hematologic/Lymphatic: Hematologic/Lymphatic: Reports no additional hematologic/lymphatic complaints Allergic/Immunologic: Allergic/Immunologic: Reports no additional allergic/immunologic complaints [facility] Past Medical History Medical History CKD (chronic kidney disease) stage 3, GFR 30-59 ml/min Diabetic foot ulcer with osteomyelitis (~08/2020) Diabetic peripheral neuropathy Edema of lower extremity due to peripheral venous insufficiency Gastroesophageal reflux disease History of deep venous thrombosis (DVT) of distal vein of left lower extremity (~2005) History of osteomyelitis Lower extremity edema Peripheral arterial disease Type 2 diabetes mellitus Ulcer of left foot due to type 2 diabetes mellitus Uncontrolled type 2 diabetes mellitus Vaccine counseling Surgical History Surgical History Amputation of left midfoot (~2014) As treatment of osteomyelitis, done in [place]. History of transmetatarsal amputation of foot (~08/2020) Status post left foot surgery Patient reports multiple debridements for osteomyelitis of the left foot prior to mid foot amputation. Family History Family History Father Renal cell carcinoma Social History Social History Social History: The patient lives in his own home in [place]. He has a daughter who lives in [place]. 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 Lifelong nonsmoker. He has not consumed alcohol for 3 years. No drug use. He designates his daughter, Cassandra Montoya, as his surrogate decision maker and he wishes to be a full code. Smoking status: Never smoker Second hand tobacco smoke exposure: Yes Alcohol intake: current Alcohol use details: seldom Substance use: never Substance use type: does not use Lack of Transportation: No Lack of Food: Never True Current Housing: I Have Housing Concerned About Future Housing: No Difficulty Paying Gas/Electric Bills: No Difficulty Paying for Meds: No Currently Unemployed: No Education: Associate Degree Difficulty w/ Childcare or Family Care: No Living arrangements: alone Occupation/Education: retired Gender identity (if verbalized by the patient): Male Spiritual care concerns: No Agree to blood products: Yes M
== END 2023-11-02 23:59 | disposition home or self-care (01) ==
LOC: ANHWOC 07:33
PROVIDERS: PCP Family Medicine; Visit Provider Orthopaedic Surgery
DX: E11.621 Type 2 diabetes mellitus with foot ulcer (principal); L97.519 Non-pressure chronic ulcer of other part of right foot with unspecified severity; L97.529 Non-pressure chronic ulcer of other part of left foot with unspecified severity
CPT/HCPCS: 15275; 99214; G0463; Q4137

== ENCOUNTER 2024-01-12 07:38 | Outpatient (RCR) | payer MEDICARE, BC, OTHER, SELFPAY ==
[2023-11-03 00:05] VITALS: BMI 26.5
--- NOTE | 2023-11-10 08:58 | PM.IMHP ---
H&P: HPI History of Present Illness Date/Time: 11/10/23 08:58 Chief Complaint: Left diabetic foot ulcer Narrative: Patient returns to [facility] for left foot. 2 weeks s/p graft application to ulcer plantar left foot. Continues with Sun, silver gel and foam in the interim. No interim complaints. Review of Systems Review of Systems: All systems reviewed & are unremarkable except as noted in HPI and below Constitutional: Constitutional: Reports no additional constitutional complaints, Denies chills, Denies fever(s) and Denies headache(s) Eyes: Eyes: Reports no additional eye complaints and Denies change in vision ENT: Denies headache(s) and Denies sore throat Cardiovascular: Cardiovascular: Denies chest pain and Denies dyspnea Respiratory: Respiratory: Reports chest congestion, Reports cough and Denies dyspnea Gastrointestinal: Gastrointestinal: Denies diarrhea, Denies nausea and Denies vomiting Genitourinary: Genitourinary: Denies dysuria Musculoskeletal: Musculoskeletal: Reports deformity ( Left foot) and Denies numbness Integumentary/Breasts: Skin/Breast: Reports rash, Reports skin ulcer and Denies wounds Neurologic: Denies confusion, Denies headache(s), Denies focal weakness and Denies numbness Psychiatric: Psychiatric: Reports no additional psychiatric complaints and Denies confusion Endocrine: Endocrine: Reports no additional endocrine complaints Hematologic/Lymphatic: Hematologic/Lymphatic: Reports no additional hematologic/lymphatic complaints Allergic/Immunologic: Allergic/Immunologic: Reports no additional allergic/immunologic complaints [facility] Past Medical History Medical History CKD (chronic kidney disease) stage 3, GFR 30-59 ml/min Diabetic foot ulcer with osteomyelitis (~08/2020) Diabetic peripheral neuropathy Edema of lower extremity due to peripheral venous insufficiency Gastroesophageal reflux disease History of deep venous thrombosis (DVT) of distal vein of left lower extremity (~2005) History of osteomyelitis Lower extremity edema Peripheral arterial disease Type 2 diabetes mellitus Ulcer of left foot due to type 2 diabetes mellitus Uncontrolled type 2 diabetes mellitus Vaccine counseling Surgical History Surgical History Amputation of left midfoot (~2014) As treatment of osteomyelitis, done in [place]. History of transmetatarsal amputation of foot (~08/2020) Status post left foot surgery Patient reports multiple debridements for osteomyelitis of the left foot prior to mid foot amputation. Family History Family History Father Renal cell carcinoma Social History Social History Social History: The patient lives in his own home in [place]. He has a daughter who lives in [place]. 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 Lifelong nonsmoker. He has not consumed alcohol for 3 years. No drug use. He designates his daughter, Cassandra Montoya, as his surrogate decision maker and he wishes to be a full code. Smoking status: Never smoker Second hand tobacco smoke exposure: Yes Alcohol intake: current Alcohol use details: seldom Substance use: never Substance use type: does not use Lack of Transportation: No Lack of Food: Never True Current Housing: I Have Housing Concerned About Future Housing: No Difficulty Paying Gas/Electric Bills: No Difficulty Paying for Meds: No Currently Unemployed: No Education: Associate Degree Difficulty w/ Childcare or Family Care: No Living arrangements: alone Occupation/Education: retired Gender identity (if verbalized by the patient): Male Spiritual care concerns: No Agree to blood products: Yes M
--- NOTE | 2023-11-24 08:55 | PM.IMHP ---
H&P: HPI History of Present Illness Date/Time: 11/24/23 08:55 Chief Complaint: Left diabetic foot ulcer Narrative: Patient returns to [facility] for left foot. 2 weeks s/p graft application to ulcer plantar left foot. Continues with Sun, silver gel and foam in the interim. No interim complaints. Review of Systems Review of Systems: All systems reviewed & are unremarkable except as noted in HPI and below Constitutional: Constitutional: Reports no additional constitutional complaints, Denies chills, Denies fever(s) and Denies headache(s) Eyes: Eyes: Reports no additional eye complaints and Denies change in vision ENT: Denies headache(s) and Denies sore throat Cardiovascular: Cardiovascular: Denies chest pain and Denies dyspnea Respiratory: Respiratory: Reports chest congestion, Reports cough and Denies dyspnea Gastrointestinal: Gastrointestinal: Denies diarrhea, Denies nausea and Denies vomiting Genitourinary: Genitourinary: Denies dysuria Musculoskeletal: Musculoskeletal: Reports deformity ( Left foot) and Denies numbness Integumentary/Breasts: Skin/Breast: Reports rash, Reports skin ulcer and Denies wounds Neurologic: Denies confusion, Denies headache(s), Denies focal weakness and Denies numbness Psychiatric: Psychiatric: Reports no additional psychiatric complaints and Denies confusion Endocrine: Endocrine: Reports no additional endocrine complaints Hematologic/Lymphatic: Hematologic/Lymphatic: Reports no additional hematologic/lymphatic complaints Allergic/Immunologic: Allergic/Immunologic: Reports no additional allergic/immunologic complaints [facility] Past Medical History Medical History CKD (chronic kidney disease) stage 3, GFR 30-59 ml/min Diabetic foot ulcer with osteomyelitis (~08/2020) Diabetic peripheral neuropathy Edema of lower extremity due to peripheral venous insufficiency Gastroesophageal reflux disease History of deep venous thrombosis (DVT) of distal vein of left lower extremity (~2005) History of osteomyelitis Lower extremity edema Peripheral arterial disease Type 2 diabetes mellitus Ulcer of left foot due to type 2 diabetes mellitus Uncontrolled type 2 diabetes mellitus Vaccine counseling Surgical History Surgical History Amputation of left midfoot (~2014) As treatment of osteomyelitis, done in [place]. History of transmetatarsal amputation of foot (~08/2020) Status post left foot surgery Patient reports multiple debridements for osteomyelitis of the left foot prior to mid foot amputation. Family History Family History Father Renal cell carcinoma Social History Social History Social History: The patient lives in his own home in [place]. He has a daughter who lives in [place]. 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 Lifelong nonsmoker. He has not consumed alcohol for 3 years. No drug use. He designates his daughter, Cassandra Montoya, as his surrogate decision maker and he wishes to be a full code. Smoking status: Never smoker Second hand tobacco smoke exposure: Yes Alcohol intake: current Alcohol use details: seldom Substance use: never Substance use type: does not use Lack of Transportation: No Lack of Food: Never True Current Housing: I Have Housing Concerned About Future Housing: No Difficulty Paying Gas/Electric Bills: No Difficulty Paying for Meds: No Currently Unemployed: No Education: Associate Degree Difficulty w/ Childcare or Family Care: No Living arrangements: alone Occupation/Education: retired Gender identity (if verbalized by the patient): Male Spiritual care concerns: No Agree to blood products: Yes M
--- NOTE | 2023-12-08 13:18 | PM.IMHP ---
H&P: HPI History of Present Illness Date/Time: 12/08/23 13:18 Chief Complaint: Left diabetic foot ulcer Narrative: Patient returns to [facility] for left foot. 4 weeks s/p graft application to ulcer plantar left foot. Continues with Sun, silver gel and foam in the interim. No interim complaints. Review of Systems Review of Systems: All systems reviewed & are unremarkable except as noted in HPI and below Constitutional: Constitutional: Reports no additional constitutional complaints, Denies chills, Denies fever(s) and Denies headache(s) Eyes: Eyes: Reports no additional eye complaints and Denies change in vision ENT: Denies headache(s) and Denies sore throat Cardiovascular: Cardiovascular: Denies chest pain and Denies dyspnea Respiratory: Respiratory: Reports chest congestion, Reports cough and Denies dyspnea Gastrointestinal: Gastrointestinal: Denies diarrhea, Denies nausea and Denies vomiting Genitourinary: Genitourinary: Denies dysuria Musculoskeletal: Musculoskeletal: Reports deformity ( Left foot) and Denies numbness Integumentary/Breasts: Skin/Breast: Reports rash, Reports skin ulcer and Denies wounds Neurologic: Denies confusion, Denies headache(s), Denies focal weakness and Denies numbness Psychiatric: Psychiatric: Reports no additional psychiatric complaints and Denies confusion Endocrine: Endocrine: Reports no additional endocrine complaints Hematologic/Lymphatic: Hematologic/Lymphatic: Reports no additional hematologic/lymphatic complaints Allergic/Immunologic: Allergic/Immunologic: Reports no additional allergic/immunologic complaints [facility] Past Medical History Medical History CKD (chronic kidney disease) stage 3, GFR 30-59 ml/min Diabetic foot ulcer with osteomyelitis (~08/2020) Diabetic peripheral neuropathy Edema of lower extremity due to peripheral venous insufficiency Gastroesophageal reflux disease History of deep venous thrombosis (DVT) of distal vein of left lower extremity (~2005) History of osteomyelitis Lower extremity edema Peripheral arterial disease Type 2 diabetes mellitus Ulcer of left foot due to type 2 diabetes mellitus Uncontrolled type 2 diabetes mellitus Vaccine counseling Surgical History Surgical History Amputation of left midfoot (~2014) As treatment of osteomyelitis, done in [place]. History of transmetatarsal amputation of foot (~08/2020) Status post left foot surgery Patient reports multiple debridements for osteomyelitis of the left foot prior to mid foot amputation. Family History Family History Father Renal cell carcinoma Social History Social History Social History: The patient lives in his own home in [place]. He has a daughter who lives in [place]. 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 Lifelong nonsmoker. He has not consumed alcohol for 3 years. No drug use. He designates his daughter, Cassandra Montoya, as his surrogate decision maker and he wishes to be a full code. Smoking status: Never smoker Second hand tobacco smoke exposure: Yes Alcohol intake: current Alcohol use details: seldom Substance use: never Substance use type: does not use Lack of Transportation: No Lack of Food: Never True Current Housing: I Have Housing Concerned About Future Housing: No Difficulty Paying Gas/Electric Bills: No Difficulty Paying for Meds: No Currently Unemployed: No Education: Associate Degree Difficulty w/ Childcare or Family Care: No Living arrangements: alone Occupation/Education: retired Gender identity (if verbalized by the patient): Male Spiritual care concerns: No Agree to blood products: Yes M
--- NOTE | 2024-01-05 12:05 | PM.IMHP ---
H&P: HPI History of Present Illness Date/Time: 01/05/24 12:05 Chief Complaint: Left diabetic foot ulcer Narrative: Patient returns to [facility] for left foot. Continues with Sun, silver gel and foam in the interim. No interim complaints. Review of Systems Constitutional: Constitutional: Denies fever(s) Eyes: Eyes: Denies blurry vision ENT: Reports Normal hearing present Cardiovascular: Cardiovascular: Denies chest pain and Denies dyspnea Respiratory: Respiratory: Denies dyspnea and Denies wheezing Gastrointestinal: Gastrointestinal: Denies abdominal pain Genitourinary: Genitourinary: Denies urinary urgency Musculoskeletal: Musculoskeletal: Reports as per HPI and Denies numbness Integumentary/Breasts: Skin/Breast: Denies changing lesions and Denies sores Neurologic: Reports Normal hearing present, Denies behavioral changes, Denies confusion, Denies numbness and Denies convulsions Psychiatric: Psychiatric: Denies behavioral changes, Denies confusion and Denies hallucinations Endocrine: Endocrine: Denies heat intolerance Hematologic/Lymphatic: Hematologic/Lymphatic: Denies easy bleeding Allergic/Immunologic: Allergic/Immunologic: Denies wheezing [facility] Past Medical History Medical History CKD (chronic kidney disease) stage 3, GFR 30-59 ml/min Diabetic foot ulcer with osteomyelitis (~08/2020) Diabetic peripheral neuropathy Edema of lower extremity due to peripheral venous insufficiency Gastroesophageal reflux disease History of deep venous thrombosis (DVT) of distal vein of left lower extremity (~2005) History of osteomyelitis Lower extremity edema Peripheral arterial disease Type 2 diabetes mellitus Ulcer of left foot due to type 2 diabetes mellitus Uncontrolled type 2 diabetes mellitus Vaccine counseling Surgical History Surgical History Amputation of left midfoot (~2014) As treatment of osteomyelitis, done in [place]. History of transmetatarsal amputation of foot (~08/2020) Status post left foot surgery Patient reports multiple debridements for osteomyelitis of the left foot prior to mid foot amputation. Family History Family History Father Renal cell carcinoma Social History Social History Social History: The patient lives in his own home in [place]. He has a daughter who lives in [place]. 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 Lifelong nonsmoker. He has not consumed alcohol for 3 years. No drug use. He designates his daughter, Cassandra Montoya, as his surrogate decision maker and he wishes to be a full code. Smoking status: Never smoker Second hand tobacco smoke exposure: Yes Alcohol intake: current Alcohol use details: seldom Substance use: never Substance use type: does not use Lack of Transportation: No Lack of Food: Never True Current Housing: I Have Housing Concerned About Future Housing: No Difficulty Paying Gas/Electric Bills: No Difficulty Paying for Meds: No Currently Unemployed: No Education: Associate Degree Difficulty w/ Childcare or Family Care: No Living arrangements: alone Occupation/Education: retired Gender identity (if verbalized by the patient): Male Spiritual care concerns: No Agree to blood products: Yes Meds Home Medications and Allergies Home Medications Medication Instructions Recorded Confirmed Type blood sugar diagnostic (Blood #100 ea 10/17/20 05/06/23 Rx Glucose Test strips) blood-glucose meter #1 ea 10/17/20 05/06/23 Rx lancets #100 ea 10/17/20 05/06/23 Rx Vitamin Super B Complex 1 tab-cap PO DAILY 09/30/22 05/06/23 History mecobalamin (vitamin B12) 1,000 500 mcg sublingual DAILY 09/15
== END 2024-02-08 23:59 | disposition home or self-care (01) ==
LOC: ANHWOC 07:38
PROVIDERS: PCP Family Medicine; Visit Provider Orthopaedic Surgery
DX: E11.621 Type 2 diabetes mellitus with foot ulcer (principal); L97.519 Non-pressure chronic ulcer of other part of right foot with unspecified severity; L97.529 Non-pressure chronic ulcer of other part of left foot with unspecified severity
CPT/HCPCS: 11042; 15275; 99213; G0463; Q4137

== ENCOUNTER 2024-07-27 10:41 | Outpatient (CLI) | payer MEDICARE, BC, OTHER, SELFPAY ==
--- OUTSIDE RECORDS SUMMARY | 2024-07-27 12:10 | XMS_ITS | Clinical Summary ---
Author Organization [facility] Address [address] [place] [id number] Phone Care Team Providers Care Dog Raiser Name Role Phone Sukhjinder Mclaughlin MD Primary Care Provider [phone] Allergies No known active allergies Medications Medication Sig Dispensed Refills Start Date End Date Status Cholecalciferol (Vitamin D3) 1.25 MG (23873 UT) capsule Take 1 capsule by mouth 1 (one) time per week 04/17/2021 Active lisinopril (PRINIVIL) 10 MG tablet Take 10 mg by mouth 1 (one) time each day 04/17/2021 Active b complex vitamins capsule Take 1 capsule by mouth 1 (one) time each day Active ROSUVASTATIN CALCIUM PO Take by mouth Unknown dose Active Active Problems Problem Noted Date Diagnosed Date Essential hypertension 05/23/2021 Diabetes mellitus without me ntion of complication, type II or unspecified type, not stated as uncontrolled 05/23/2021 Nonspecific abnormal results of function study o f kidney 05/23/2021 Immunizations Name Administration Dates Next Due Influenza TIV (IM) 03/29/2021 Family History Medical History Relation Comments Kidney disease Neg Hx Social History Tobacco Use Types Packs/Day Years Used Date Smoking Tobacco: Never Smokeless Tobacco: Never Alcohol Use Standard Drinks/Week Comments Not Currently 0 (1 standard drink = 0.6 oz pur e alcohol) Sex and Gender Information Value Date Recorded Sex Assigned at Not on file Gender Identity Not on file Sexual Orientation Not on file Last Filed Vital Signs Vital Sign Reading Time Taken Comments Blood Pressure 126/70 05/23/2021 8:44 AM SUBMARINE DIVER Pulse 72 05/23/2021 8:44 AM SUBMARINE DIVER Temperature 36.3 C (97.4 F) 05/23/2021 8:44 AM SUBMARINE DIVER Respiratory Rate - - Oxygen Saturation - - Inhaled Oxygen Concentration - - Weight 86.2 kg (190 lb) 05/23/2021 8:44 AM SUBMARINE DIVER Height 177.8 cm (5' 10 ) 05/23/2021 8:44 AM SUBMARINE DIVER Body Mass Index 27.26 05/23/2021 8:44 AM SUBMARINE DIVER Plan of Treatment Health Maintenance Due Date Last Done Comments Pneumococcal PPSV23/PCV13 65 + Years / Low and Medium Risk (1 of 4 - PCV) 2019 Influenza Vaccine (#1) 2024 03/29/2021 Care Teams Dog Raiser Relationship Specialty Start Date End Date Sukhjinder Mclaughlin MD [address] [place] [address] PCP - General Family Medicine 04/22/21
--- OUTSIDE RECORDS SUMMARY | 2024-07-27 12:10 | XMS_ITS | Continuity of Care Document ---
Author Name [facility] Organization [facility] Care Team Providers Care Proofer Prepress Name Role Phone [facility] Unavailable Unavailable Social History Combined list of available smoking, tobacco, and other social history from Department of Defense and Veterans Affairs facilities. Social History Type Response Date Comment Sourc e This section is an empty social history section. [facility]
--- OUTSIDE RECORDS SUMMARY | 2024-07-27 12:10 | XMS_ITS | Clinical Summary ---
Author Organization [facility] Address [address] [place] [address] Care Team Providers Care Video Intern Name Role Phone Aure Osorio MD Primary Care Provider Allergies Active Allergy Reactions Criticality Noted Date Comments Metoclopramide Hcl Other (See Comments) 021 Medications lisinopriL (PRINIVIL) 10 mg tablet Take 10 mg by mouth daily. 04/17/2021 Active cholecalciferol 1,250 mcg (50,000 unit) Capsule Take 1 Capsule by mouth every 7 days. 04/17/2021 Active atorvastatin (LIPITOR) 10 mg tablet Take 10 mg by mouth daily. Active ferrous sulfate 325 mg (65 mg iron) tablet Take 325 mg by mouth daily. Active furosemide (LASIX) 40 mg tablet Take 40 mg by mouth daily. Active metFORMIN (GLUCOPHAGE) 500 mg tablet Take 500 mg by mouth daily with breakfast. Active rosuvastatin (CRESTOR) 5 mg tablet Take 5 mg by mouth daily. Active CALCIUM CARBONATE-VITAM IN D3 ORAL Take 1,000 Int'l Units/L by mouth daily. Active cyanocobalamin (VITAMIN B-12) 500 mcg tablet Take 500 mcg by mouth daily. Active Active Problems No known active problems Encounters Date Type Department Care Team Description 06/14/2024 External Device Data [facility] ABSTRACTION Provider, Abstract 06/08/2024 External Device Data [facility] ABSTRACTION Provider, Abstract 06/08/2024 External Device Data [facility] ABSTRACTION Provider, Abstract 06/01/2024 External Device Data [facility]STRACTION Provider, Abstract from Last 3 Months Family History Medical History Relation Name Comments No Known Problems Daughter Cancer Father No Known Problems Mother Relation Name Status Comments Brother unknown Daughter Alive Father Alive Mother Alive Sister unknown Social History Tobacco Use Types Packs/Day Years Used Date Smoking Tobacco: Never Smokeless Tobacco: Never Alcohol Use Standard Drinks/Week Comments Never 0 (1 standard drink = 0.6 oz pur e alcohol) Sex and Gender Information Value Date Recorded Sex Assigned at Not on file Legal Sex Male 9:25 AM CDT Gender Identity Not on file Sexual Orientation Not on file Last Filed Vital Signs Vital Sign Reading Time Taken Comments Blood Pressure 162/87 07/09/2023 1:36 PM ELECTRICAL JOURNEYMAN Pulse 91 07/09/2023 1:32 PM ELECTRICAL JOURNEYMAN Temperature 36.4 C (97.5 F) 07/09/2023 1:32 PM ELECTRICAL JOURNEYMAN Respiratory Rate 14 07/09/2023 1:32 PM ELECTRICAL JOURNEYMAN Oxygen Saturation 98% 07/09/2023 1:32 PM ELECTRICAL JOURNEYMAN Inhaled Oxygen Concentration - - Weight 83.5 kg (184 lb) 07/09/2023 1:32 PM ELECTRICAL JOURNEYMAN Height 177.8 cm (5' 10 ) 01/08/2023 2:58 PM CDT Body Mass Index 26.4 01/08/2023 2:58 PM CDT Plan of Treatment Health Maintenance Due Date Last Done Comments DIABETES ANNUAL FOOT EXAM 1972 DIABETES ANNUAL RETINAL EXAM 1972 DIABETES MICROALBUMIN ANNUAL SCREEN 1972 LDL CHOLESTEROL ANNUAL 1972 DTAP/TDAP/TD VACCINES (1 - Tdap) 1973 PNEUMOCOCCAL VACCINE 50+ YEA RS (1 of 2 - PCV) 1973 COLORECTAL SCREENING 1999 Colorectal Cancer Screening 1999 FIT-DNA Q 3 years 1999 FIT/FOBT Q 1 year 1999 Flex Sig/CT Colonography Q 5 years 1999 ZOSTER VACCINE (1 of 2) 2004 DIABETES HBA1C Q 6 MONTHS 02/25/20232022, 03/26/2021, 11/09/2020 INFLUENZA VACCINE (#1) 2023 03/29/2021 RSV VACCINE (60+ or ) (1 - 1-dose 75+ series) 2029 Insurance MEDICARE PART A AND B [facility] Address: [address] [address] Care Teams Video Intern Relationship Specialty Start Date End Date Aure Osorio MD [address] [place] [id number] PCP - General Family Practice 01/08/23
[2024-07-27 13:24] LABS: Basophils Percent Auto 0.4 % (0.2-1.2); Eosinophils Absolute Auto 0.2 K/mm3 (0-0.3); Eosinophils Percent Auto 2.3 % (0-4.4); Hematocrit 34.7 % (42.0-52.0); Hemoglobin 11.6 g/dL (14.0-18.0); Immature Granulocyte Absolute 0.02 K/mm3 (0.00-0.031); Immature Granulocyte Percent A 0.3 % (0-0.5); Lymphocytes Absolute Auto 1.16 K/mm3 (0.9-3.2); Lymphocytes Percent Auto 15.8 % (18.3-44.2); Mean Corpuscular HGB Conc 33.4 g/dl (32-36); Mean Corpuscular Hemoglobin 31.9 pg (26-34); Mean Corpuscular Volume 95.3 fl (80-100); Mean Platelet Volume 10.8 fl (7.4-10.4); Monocytes Absolute Auto 0.5 K/mm3 (0.1-0.6); Monocytes Percent Auto 6.8 % (2.6-8.5); Neutrophils Absolute Auto 5.5 K/mm3 (1.3-6.7); Neutrophils Percent Auto 74.4 % (45.5-73.1); Platelet Count Result 191 k/mm3 (150-375); Red Blood Count 3.64 M/mm3 (4.6-6.20); Red Cell Distribution Width 13.2 % (11.5-14.5); White Blood Count 7.3 K/mm3 (4.5-10.0)
[2024-07-27 14:51] LABS: Vitamin D 25 Hydroxy 19.5 ng/mL
[2024-07-27 16:11] LABS: Alanine Aminotransferase 18 U/L (6-50); Albumin Level 3.8 g/dL (3.5-5.1); Alkaline Phosphatase 102 U/L (38-126); Anion Gap 7 mmol/L (4-12); Aspartate Amino Transferase 26 U/L (17-59); Bilirubin,Total 0.5 mg/dL (0.2-1.3); Blood Urea Nitrogen 23 mg/dL (9-20); Carbon Dioxide 25 mmol/L (22-30); Chloride 107 mmol/L (98-107); Cholesterol 215 mg/dL (0-200); Estimated Glomerular Filt Rate 39; Glucose 130 mg/dL (65-110); HDL Direct 40 mg/dL; Potassium 4.9 mmol/L (3.4-5.0); Sodium 139 mmol/L (137-145); Triglycerides 126 mg/dL (<150)
[2024-07-27 16:22] LABS: LDL Cholesterol Direct 133 mg/dL
[2024-07-27 16:45] LABS: Prostate Specific Antigen 0.6 ng/mL (< OR = 4.0)
[2024-07-27 17:27] LABS: Hemoglobin A1C 6.3 % (<5.7)
== END 2024-07-27 10:42 | disposition home or self-care (01) ==
PROVIDERS: PCP Family Medicine; Visit Provider Nurse Practitioner Family
DX: E78.5 Hyperlipidemia, unspecified (principal); E55.9 Vitamin D deficiency, unspecified; I10 Essential (primary) hypertension; E11.9 Type 2 diabetes mellitus without complications; Z12.5 Encounter for screening for malignant neoplasm of prostate
CPT/HCPCS: 36415; 80053; 80061; 82306; 83036; 84153; 84443; 85025; 85055; G0103

== ENCOUNTER 2025-02-14 10:26 | Outpatient (CLI) | payer MEDICARE, BC, OTHER, SELFPAY ==
--- OUTSIDE RECORDS SUMMARY | 2025-02-14 11:17 | XMS_ITS | Clinical Summary ---
Author Organization [facility] Address [address] [facility] [place] [place] [address] Care Team Providers Care Director Of Public Safety Name Role Phone Aure Osorio MD Primary [...] Active Active Problems No known active problems Family History Medical History Relation Name Comments [...] Comments Blood Pressure 162/87 07/09/2023 1:36 PM GYM TEACHER Pulse 91 07/09/2023 1:32 PM GYM TEACHER Temperature 36.4 C (97.5 F) 07/09/2023 1:32 PM GYM TEACHER Respiratory Rate 14 07/09/2023 1:32 PM GYM TEACHER Oxygen Saturation 98% 07/09/2023 1:32 PM GYM TEACHER Inhaled Oxygen Concentration - - Weight 83.5 kg (184 lb) 07/09/2023 1:32 PM GYM TEACHER Height 177.8 cm (5' 10) 01/08/2023 2:58 PM CDT Body Mass Index [...] MONTHS 02/25/20232022, 03/26/2021, 11/09/2020 INFLUENZA VACCINE (#1) 2024 03/29/2021 RSV VACCINE (60+ or ) (1 - 1-dose 75+ series) 2029 Insurance MEDICARE PART A AND B [facility] Care Teams Director Of Public Safety Relationship Specialty Start Date End Date Aure Osorio MD [address] [place] [address] PCP - General Family Practice 01/08/23
[2025-02-14 13:02] LABS: Hematocrit 35.4 % (42.0-52.0); Hemoglobin 12.0 g/dL (14.0-18.0); Immature Granulocyte Percent A 1.1 % (0-0.5); Lymphocytes Absolute Auto 1.38 K/mm3 (0.9-3.2); Mean Corpuscular HGB Conc 33.9 g/dl (32-36); Mean Corpuscular Hemoglobin 32.1 pg (26-34); Mean Corpuscular Volume 94.7 fl (80-100); Nucleated Red Blood Cells Absolute Auto 0.000 K/mm3 (0.0-0.012); Nucleated Red Blood Cells Perc 0.0 % (0.0-0.2); Platelet Count Result 214 k/mm3 (150-375); Red Blood Count 3.74 M/mm3 (4.6-6.20); White Blood Count 7.4 K/mm3 (4.5-10.0)
[2025-02-14 13:18] LABS: Alanine Aminotransferase 17 U/L (6-50); Albumin Level 3.6 g/dL (3.5-5.1); Alkaline Phosphatase 110 U/L (38-126); Anion Gap 6 mmol/L (4-12); Aspartate Amino Transferase 32 U/L (17-59); Bilirubin,Total 0.6 mg/dL (0.2-1.3); Blood Urea Nitrogen 20 mg/dL (9-20); Calcium 9.1 mg/dL (8.4-10.2); Carbon Dioxide 27 mmol/L (22-30); Chloride 105 mmol/L (98-107); Cholesterol 209 mg/dL (0-200); Estimated Glomerular Filt Rate 42; Glucose 112 mg/dL (65-110); HDL Direct 35 mg/dL; Potassium 4.7 mmol/L (3.4-5.0); Sodium 138 mmol/L (137-145); Total Protein 6.9 g/dL (6.3-8.2); Triglycerides 83 mg/dL (<150)
[2025-02-14 16:18] LABS: Hemoglobin A1C 6.0 % (<5.7)
== END 2025-02-14 10:27 | disposition home or self-care (01) ==
LOC: ANHGOSHLAB 10:28
PROVIDERS: PCP Family Medicine; Visit Provider Nurse Practitioner Family
DX: E78.5 Hyperlipidemia, unspecified (principal); I10 Essential (primary) hypertension; E11.9 Type 2 diabetes mellitus without complications; E55.9 Vitamin D deficiency, unspecified
CPT/HCPCS: 36415; 80053; 80061; 82306; 83036; 85025